=== PATIENT | female | born 1955 | race Caucasian/White ===

== ENCOUNTER → 2022-09-18 11:05 | Outpatient (BNVA) | payer MEDICARE, BC, SELFPAY | PROVIDERS: PCP Physician Assistant; Visit Provider Student in an Organized Health Care Education/Training Program | DX: M06.09 Rheumatoid arthritis without rheumatoid factor, multiple sites (principal); M17.12 Unilateral primary osteoarthritis, left knee; R06.02 Shortness of breath; Z79.899 Other long term (current) drug therapy | CPT/HCPCS: 99202 ==

== ENCOUNTER 2022-09-18 12:57 | Outpatient (REF) | payer MEDICARE, BC, SELFPAY ==
[2022-09-18 14:41] LABS: MANUAL DIFF FLAG NO
[2022-09-18 14:55] LABS: Basophils Percent Auto 0.5 % (0-2); Eosinophils Absolute Auto 0.1 X10*3/uL (0.0-0.4); Eosinophils Percent Auto 1.3 % (0-4); Hematocrit 44.6 % (37.0-47.0); Hemoglobin 14.1 g/dl (12.0-16.0); Imm Gran Abs Auto 0.01 X10*3/uL (0.00-0.03); Imm Gran Pct Auto 0.2 % (0.0-0.4); Lymphocytes Absolute Auto 2.2 X10*3/uL (1.2-4.9); Mean Corpuscular HGB Conc 31.6 g/dl (31.0-35.0); Mean Corpuscular Hemoglobin 30.5 pg (27.0-33.0); Mean Corpuscular Volume 96.3 fL (80.0-98.0); Mean Platelet Volume 10.5 fL (9.4-12.3); Monocytes Absolute Auto 0.7 X10*3/uL (0.1-1.2); Monocytes Percent Auto 10.8 % (2-11); Neutrophils Absolute Auto 3.2 x10*3/uL (2.0-8.3); Neutrophils Percent Auto 51.2 % (45-73); Platelet Count 187 X10*3/uL (160-400); Red Blood Count 4.63 X10*6/uL (4.20-5.50); Red Cell Distribution Width 15.7 % (11.0-16.0); White Blood Count 6.2 X10*3/uL (4.8-10.8)
[2022-09-18 15:29] LABS: Erythrocyte Sedimentation Rate 18 MM/HR (0-20)
[2022-09-18 15:39] LABS: Alanine Aminotransferase 26 U/L (0-31); Albumin Level 3.9 g/dL (3.5-5.0); Alkaline Phosphatase 64 U/L (39-117); Anion Gap 11 (12-20); Aspartate Amino Transferase 23 U/L (5-31); Bilirubin Total 0.9 mg/dL (0.0-1.0); Blood Urea Nitrogen 20 mg/dL (9-16); C Reactive Protein 0.11 mg/dL (< or = 0.50); Calcium 9.6 mg/dL (8.4-10.2); Carbon Dioxide 29 mmol/L (22-29); Chloride 108 mmol/L (96-108); Estimated Glomerular Filt Rate > 60; Glucose Random 81 mg/dL (60-115); Potassium 4.4 mmol/L (3.3-5.1); Rheumatoid Factor 70.9 IU/mL (<15.0); Sodium 144 mmol/L (135-145)
[2022-09-20 06:47] LABS: HBS Num1 0.38 mIU/mL (0-7.99); HBc Num1 0.09 S/CO (0.00-0.79); HBsAGNum1 0.28 S/CO (0.00-0.99); Hepatitis A Antibody IgM 0.17 Index (0-0.79); Hepatitis B Core Antibody Nonreactive (Nonreactive); Hepatitis B Surface Antigen Negative (Negative); ~HepC Num1 0.19 S/CO (0.00-0.79); ~Hepatitis A Antibody IgM Nonreactive (Nonreactive); ~Hepatitis B Surface Antibody NONREACTIVE (Nonreactive); ~Hepatitis C Antibody Nonreactive (Nonreactive)
[2022-09-21 08:03] LABS: TS Negative Control Passed; TS Panel A 0; TS Panel B 0; TS Positive Control Passed; TSpotTB Negative (Negative)
[2022-09-23 13:14] LABS: Cyclic Citrullinated Peptide >250 UNITS
== END 2022-09-18 12:58 | disposition home or self-care (01) ==
LOC: HO.10HDL 12:57
PROVIDERS: Visit Provider Student in an Organized Health Care Education/Training Program
DX: Z11.59 Encounter for screening for other viral diseases (principal); Z11.7 Encounter for testing for latent tuberculosis infection; M06.9 Rheumatoid arthritis, unspecified; Z72.89 Other problems related to lifestyle
CPT/HCPCS: 36415; 80053; 85025; 85652; 86140; 86200; 86431; 86481; 86704; 86706; 86709; 86803; 87340

== ENCOUNTER 2022-10-24 07:48 | Outpatient (REF) | payer MEDICARE, BC, SELFPAY ==
--- NOTE | 2022-10-24 13:33 | PFT_ITS ---
Forced vital capacity 111%, FEV1 105%, FEV1/FVC ratio is 72. HLF30-10 85% and MVV 123%. Post bronchodilator therapy, there is no significant change. Total lung capacity 113%. Residual volume 92%. Diffusion capacity is 62%. CONCLUSION: There is no evidence of obstructive or restrictive pulmonary disorder. Diffusion capacity is slightly decreased, which may be due to interstitial lung disease, pulmonary vascular disease or nonpulmonary factors. For this, clinical correlation is recommended. Neville Lynn MD MSB/MODL / [id number]
== END 2022-10-24 07:49 | disposition home or self-care (01) ==
LOC: HO.RESP 07:48
PROVIDERS: PCP Physician Assistant; Visit Provider Student in an Organized Health Care Education/Training Program
DX: R06.02 Shortness of breath (principal)
CPT/HCPCS: 94060; 94727; 94729

== ENCOUNTER → 2022-12-03 10:26 | Outpatient (BNVA) | payer MEDICARE, BC, SELFPAY | PROVIDERS: PCP Physician Assistant; Visit Provider Student in an Organized Health Care Education/Training Program | DX: M06.09 Rheumatoid arthritis without rheumatoid factor, multiple sites (principal); R06.02 Shortness of breath; Z71.85 Encounter for immunization safety counseling; Z79.631 Long term (current) use of antimetabolite agent | CPT/HCPCS: 99212 ==

== ENCOUNTER → 2022-12-16 10:24 | Outpatient (REF) | payer MEDICARE, BC, SELFPAY ==
--- NOTE | 2022-12-16 10:27 | CA_ITS ---
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 The calculated ejection fraction is 66% by biplane method. - No obvious valvular pathology seen on this study. Findings Left Ventricle Normal left ventricular cavity size. The left ventricular systolic function is normal. The calculated ejection fraction is 66% by biplane method. There is no evidence of regional wall motion abnormalities. Diastolic function is normal for age. There is mild septal asymmetric hypertrophy. LV peak GLS 21.8%. Right Ventricle Normal right ventricular cavity size and systolic function. Atria Both atria are normal in size. Aortic Valve There is a normal trileaflet aortic valve. There is no aortic valve stenosis. There is no aortic valve regurgitation. Mitral Valve The mitral valve appears normal. There is mild mitral annular calcification. There is trace mitral valve regurgitation. There is no mitral valve stenosis. Pulmonic Valve The pulmonic valve is likely normal. Tricuspid Valve There is trace tricuspid valve regurgitation. There is no evidence of pulmonary hypertension. Great Vessels The asc aorta is normal in size. Venous The inferior vena cava is mildly dilated and collapses greater than 50% with inspiration. Pericardium/Pleural There is no evidence of pericardial effusion. Prior Study Comparison No prior study available for comparison. Recommendations, Care & Conclusions No obvious valvular pathology seen on this study. Measurements 2D Linear Measurements IVSd: 1.04 0.6-0.9/0.6-1.0 cm LVIDd: 3.76 3.9-5.3/4.2-5.9 cm LVIDd Index: 1.76 2.4-3.2/2.2-3.1 cm/m2 LVIDs: 2.59 2.0-3.6 cm LVPWd: 0.78 0.7-1.1 cm LA Diam: 3.60 2.7-3.8/3.0-4.0 cm LAIDs Index: 1.68 1.5-2.3 cm/m2 LV Mass: 125.21 67-162/88-224 g LV Mass Index: 58.51 43-95/49-115 g/m2 LVOT Diam: 2.10 3.0+(-)1.3 cm 2D Systolic Function EF 4C: 68.30 >55% EF 2C: 65.70 >55% EF BiP: 65.60 >55% Mitral Valve MV Pk E: 0.49 MV PK A: 0.70 MV Decel Time: 314.00 E/A: 0.70 E'Lateral: 6.42 E'Medial: 4.90 E/E' Med: 10.10 E/E' Lat: 7.70 PHT: 92.00 MVA PHT: 2.39 Decel Robeson: 1.57 Aortic Valve AoV Pk Dave: 0.92 AoV Mn Dave: 0.63 AoV VTI: 0.20 AoV Pk Grad: 3.00 Aov Mn Grad: 2.00 DOUGIE Cont.VTI: 3.63 LVOT LVOT Pk Dave: 0.94 LVOT Mn Dave: 0.59 LVOT VTI: 0.21 LVOT Pk Grad: 4.00 LVOT Mn Grad: 2.00 LVOT Diam: 2.10 LVOT Area: 3.46 Diastolic Function MV Pk E: 0.49 MV Pk A: 0.70 E/A: 0.70 E'Medial: 4.90 E/E' Med: 10.10 E' Laterial: 6.42 E/E' Lat: 7.70 Right Ventricle TAPSE (mm): 26.50 TVS' Dave: 19.30 Tricuspid Valve TR Pk Dave: 1.95 TR Pk Grad: 15.00 RA Press: 8.00 RVSP: 23.00 Great Vessels Aorta Sinus of Valsalva: 3.52 2.0-3.[address] [place]: 3.25 1.7-3.4 cm Ao Asc: 3.60 2.1-3.4 cm Updated in Other Vendor System with Status of Final Bryan Urban MD electronically signed on 12/16/2022 3:49:31 PM with status of Final
== END ==
LOC: HO.CARD 10:24
PROVIDERS: PCP Physician Assistant; Visit Provider Student in an Organized Health Care Education/Training Program
DX: R06.02 Shortness of breath (principal); R06.2 Wheezing
CPT/HCPCS: 93306; 93356

== ENCOUNTER 2023-03-28 07:27 | Outpatient (REF) | payer MEDICARE, BC, SELFPAY ==
[2023-03-28 11:02] LABS: MANUAL DIFF FLAG NO
[2023-03-28 11:08] LABS: Basophils Percent Auto 0.4 % (0-2); Eosinophils Absolute Auto 0.2 X10*3/uL (0.0-0.4); Eosinophils Percent Auto 2.6 % (0-4); Hematocrit 46.4 % (37.0-47.0); Hemoglobin 14.7 g/dl (12.0-16.0); Imm Gran Abs Auto 0.01 X10*3/uL (0.00-0.03); Imm Gran Pct Auto 0.1 % (0.0-0.4); Lymphocytes Absolute Auto 3.4 X10*3/uL (1.2-4.9); Lymphocytes Percent Auto 49.5 % (20-40); Mean Corpuscular HGB Conc 31.7 g/dl (31.0-35.0); Mean Corpuscular Hemoglobin 31.4 pg (27.0-33.0); Mean Corpuscular Volume 99.1 fL (80.0-98.0); Monocytes Absolute Auto 0.7 X10*3/uL (0.1-1.2); Monocytes Percent Auto 10.3 % (2-11); Neutrophils Absolute Auto 2.5 x10*3/uL (2.0-8.3); Neutrophils Percent Auto 37.1 % (45-73); Platelet Count 199 X10*3/uL (160-400); Red Blood Count 4.68 X10*6/uL (4.20-5.50); White Blood Count 6.9 X10*3/uL (4.8-10.8)
[2023-03-28 11:32] LABS: Alanine Aminotransferase 15 U/L (0-31); Albumin Level 3.8 g/dL (3.5-5.0); Alkaline Phosphatase 64 U/L (39-117); Anion Gap 13 (12-20); Aspartate Amino Transferase 19 U/L (5-31); Bilirubin Total 0.4 mg/dL (0.0-1.0); Blood Urea Nitrogen 14 mg/dL (9-16); C Reactive Protein 0.23 mg/dL (< or = 0.50); Carbon Dioxide 25 mmol/L (22-29); Chloride 109 mmol/L (96-108); Estimated Glomerular Filt Rate > 60; Glucose Random 99 mg/dL (60-115); Potassium 4.7 mmol/L (3.3-5.1); Sodium 142 mmol/L (135-145)
[2023-03-28 12:01] LABS: Erythrocyte Sedimentation Rate 18 MM/HR (0-20)
== END 2023-03-28 07:28 | disposition home or self-care (01) ==
LOC: HO.10HDL 07:27
PROVIDERS: Visit Provider Student in an Organized Health Care Education/Training Program
DX: M06.9 Rheumatoid arthritis, unspecified (principal)
CPT/HCPCS: 36415; 80053; 85025; 85652; 86140

== ENCOUNTER 2023-04-02 10:38 | Outpatient (AMB) | payer MEDICARE, BC, SELFPAY ==
[2023-04-02 10:40] VITALS: BP 124/70; PULSE 87; TEMP 36.7; O2SAT 97; BMI 28.7
--- NOTE | 2023-04-02 10:40 | A.OFFVIS_ITS ---
Intake Vital Signs 04/02/23 10:40 Height 5 ft 11 in Weight 205 lb 7.533 oz BMI 28.7 BP 124/70 Blood Pressure Location Rt brachial Position Sitting Pulse 87 Pulse Source Pulse Oximeter Temp 98.1 F Temp Source Skin Pulse Oximetry (%) 97 Intake Visit Reasons: RA Intake Note: Pt seen today for RA follow up. 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 Accompanied by: Self / Same As Patient Allergies No Known Allergies Allergy (Verified 04/02/23 10:45) Medication List - Last Reconciled 04/02/23 by Yumiko Rodas MD ascorbic acid (vitamin C) 1 g PO DAILY calcium carbonate (Calcium) 1,200 mg PO DAILY cholecalciferol (vitamin D3) 50 mcg PO DAILY coenzyme Q10 (Ultra CoQ10) 300 mg PO DAILY etanercept (Enbrel SureClick) 1 mg (0.02 mL) subcut QWEEK folic acid 0.8 mg PO DAILY pgwonvcw-wwinm-dni3-C-turner-bor 500-416.6-20 mg tabs PO glucosamine HCl 1,500 mg PO DAILY ibuprofen 600 mg PO BID PRN leucovorin calcium 10 mg (2 x 5 mg) PO QWEEK methotrexate sodium 7.5 mg (3 x 2.5 mg) PO QWEEK omega 9-izf-whc-fish oil 1,000 mg (120 mg-180 mg) (Fish Oil) 1 cap PO DAILY vitamin E (dl, acetate) 180 mg PO DAILY HPI HPI Comments History of Present Illness Details 67-year-old female with seropositive RA returns for follow-up. Doing well overall. No side effects to medications. Not complaining of shortness of breath. Knees get a little stiff with sitting down. Compliant with meds Initial history: This is a 67-year-old female who presents for evaluation of rheumatoid arthritis. Her previous band edger left the practice. RA was diagnosed in 2018 she was initially started on methotrexate with incomplete response then Enbrel was added. Significant improvement on Enbrel and methotrexate was tapered to 7.5 mg weekly. Patient feels well overall with occasional morning stiffness of her hands. She has stiffness of her knees worse on the left when she stands up after sitting down for a while. Patient smoked for about 40 years. She quit in 2018 when diagnosed with RA. She mentions getting a low-dose CT chest every year which does not show any evidence of malignancy but shows some emphysematous changes. She mentions having some slowly progressively worsening shortness of breath with climbing 2 flights of stairs over the last 2-3 years. Denies cough. 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 Review of Systems Card Denies dyspnea Resp Denies dyspnea Musc Denies arthralgias Physical Exam Vital Signs: Last Vital Signs Temp 98.1 F 04/02/23 10:40 Pulse 87 04/02/23 10:40 BP 124/70 04/02/23 10:40 Pulse Ox 97 04/02/23 10:40 BMI result Body Mass Index 28.7 Const General: cooperative, healthy appearing, comfortable and no acute distress Nutritional Appearance: overweight Orientation/consciousness: patient oriented x3 Limitations: no limitations HEENT Head: Yes normocephalic and Yes atraumatic Mouth: moist mucous membranes Resp Effort & Inspection: normal respiratory effort and able to speak in complete sentences Auscultation: clear to auscultation bilaterally Cardio Rate: regular rate Rhythm: regular rhythm Heart sounds: S1 normal heart sound present and S2 normal heart sound present GI Inspection: No distended Palpation (GI): Soft to palpation and nontender Skin General skin exam: no rashes or lesions noted Neuro General: patient oriented x3 Extrem Other: Left thumb deformity (since an accident when she was young) Osteoarthritic changes of both hands with Heberden's and Vanesa's nodes and squaring of 1st CMC joints No synovitis Left knee crepitus without pain Normal gait Some kyphosis Assessment & Plan Assessment & Plan (1) Rheumatoid arthritis: Comment: ++RF+++CCP dx 2018 MTX started 2018 and enbrel was added afterwards Code(s): M06.9 - Rheumatoid arthritis, unspecified Qualifiers: Rheumatoid arthritis location: multiple sites Rheumatoid factor presence: without rheumatoid factor Qualified Code(s): M06.09 - Rheumatoid arthritis without rheumatoid factor, multiple sites Plan: 67-year-old female with seropositive RA returns for follow-up. She is in remission on Enbrel weekly, methotrexate 7.5 mg weekly, Leucovorin 10 mg weekly, folic acid daily. No synovitis today. Labs are normal Infectious screening hepatitis panel T spot -ve 2022 Patient had complained of minimal shortness of breath many months ago. This has self-resolved. PFTs were ordered and they were unremarkable except for mildly reduced DLCO at 62%, 2D echo was done to evaluate for pulmonary hypertension and it was unremarkable. Can repeat PFTs in 2-3 years or check a [address] chest if patient complains of worsening shortness of breath Labs before next visit in 4 months (2) Screening for osteoporosis: Code(s): Z13.820 - Encounter for screening for osteoporosis Plan: Per patient she had a DEXA scan 2-3 years ago at [facility]. Due for another 1 next year. Advised patient to have her PCP send over a copy of the new DEXA scan in 2023 (3) Immunization counseling: Code(s): Z71.85 - Encounter for immunization safety counseling Plan: Discussed ACR vaccination guidelines for patients with autoimmune rheumatic disease on immune suppression. Patient received all COVID series + 2 boosters. She is wondering about the new COVID booster and RSV vaccine . Advised patient to get the new COVID booster and get the RSV vaccine, hold methotrexate for 1-2 weeks after the injection and continue Enbrel all through Plan I spent 27 minutes reviewing patient's chart, evaluating patient, ordering diagnostic workup, counseling patient and documenting in the chart Orders: Orders Comprehensive Met. Panel 4 Months M06.9 - Rheumatoid arthritis, unspecified C Reactive Protein 4 Months M06.9 - Rheumatoid arthritis, unspecified Complete Blood Count Auto Diff 4 Months M06.9 - Rheumatoid arthritis, unspecified Erythrocyte Sedimentation Rate 4 Months M06.9 - Rheumatoid arthritis, unspecified Coding Level of Care Code Est Pt Level 4 (66431) Diagnoses Rheumatoid arthritis M06.09 Rheumatoid arthritis location: multiple sites Rheumatoid factor presence: without rheumatoid factor Screening for osteoporosis Z13.820 Immunization counseling Z71.85
== END 2023-04-02 11:00 | disposition home or self-care (01) ==
PROVIDERS: PCP Physician Assistant; Visit Provider Student in an Organized Health Care Education/Training Program
DX: M06.09 Rheumatoid arthritis without rheumatoid factor, multiple sites (principal); Z13.820 Encounter for screening for osteoporosis; Z71.85 Encounter for immunization safety counseling
CPT/HCPCS: 99214

== ENCOUNTER → 2023-04-02 10:38 | Outpatient (BNVA) | payer MEDICARE, BC, SELFPAY | PROVIDERS: PCP Physician Assistant; Visit Provider Student in an Organized Health Care Education/Training Program | DX: M05.79 Rheumatoid arthritis with rheumatoid factor of multiple sites without organ or systems involvement (principal); Z79.899 Other long term (current) drug therapy | CPT/HCPCS: 99212 ==

== ENCOUNTER 2023-07-23 07:43 | Outpatient (REF) | payer MEDICARE, BC, SELFPAY ==
[2023-07-23 10:22] LABS: MANUAL DIFF FLAG NO
[2023-07-23 10:27] LABS: Basophils Percent Auto 0.6 % (0-2); Eosinophils Absolute Auto 0.1 X10*3/uL (0.0-0.4); Eosinophils Percent Auto 1.9 % (0-4); Hematocrit 46.5 % (37.0-47.0); Imm Gran Abs Auto 0.01 X10*3/uL (0.00-0.03); Imm Gran Pct Auto 0.1 % (0.0-0.4); Lymphocytes Absolute Auto 3.2 X10*3/uL (1.2-4.9); Lymphocytes Percent Auto 45.6 % (20-40); Mean Corpuscular HGB Conc 32.3 g/dl (31.0-35.0); Mean Corpuscular Hemoglobin 30.7 pg (27.0-33.0); Mean Corpuscular Volume 95.1 fL (80.0-98.0); Monocytes Absolute Auto 0.6 X10*3/uL (0.1-1.2); Neutrophils Percent Auto 43.8 % (45-73); Platelet Count 176 X10*3/uL (160-400); Red Blood Count 4.89 X10*6/uL (4.20-5.50); Red Cell Distribution Width 14.4 % (11.0-16.0); White Blood Count 6.9 X10*3/uL (4.8-10.8)
[2023-07-23 10:57] LABS: Alanine Aminotransferase 16 U/L (0-31); Albumin Level 3.9 g/dL (3.5-5.0); Alkaline Phosphatase 57 U/L (39-117); Anion Gap 12 (12-20); Aspartate Amino Transferase 20 U/L (5-31); Bilirubin Total 0.8 mg/dL (0.0-1.0); Blood Urea Nitrogen 14 mg/dL (9-16); C Reactive Protein 0.12 mg/dL (< or = 0.50); Calcium 9.7 mg/dL (8.4-10.2); Carbon Dioxide 27 mmol/L (22-29); Chloride 107 mmol/L (96-108); Estimated Glomerular Filt Rate > 60; Glucose Random 106 mg/dL (60-115); Potassium 4.2 mmol/L (3.3-5.1); Sodium 142 mmol/L (135-145); Total Protein 7.5 g/dL (6.5-8.0)
[2023-07-23 11:05] LABS: Erythrocyte Sedimentation Rate 14 MM/HR (0-20)
== END 2023-07-23 07:44 | disposition home or self-care (01) ==
LOC: HO.10HDL 07:43
PROVIDERS: Visit Provider Student in an Organized Health Care Education/Training Program
DX: M06.9 Rheumatoid arthritis, unspecified (principal)
CPT/HCPCS: 36415; 80053; 85025; 85652; 86140

== ENCOUNTER 2023-07-31 09:39 | Outpatient (AMB) | payer MEDICARE, BC, SELFPAY ==
--- NOTE | 2023-07-31 09:41 | MHC.OFFVIS ---
Intake Vital Signs 07/31/23 09:47 Height 5 ft 11 in Weight 207 lb 10.807 oz BMI 29.0 BP 130/82 Blood Pressure Location Rt brachial Position Sitting Pulse 79 Pulse Source Pulse Oximeter Temp 97 F Temp Source Skin Pulse Oximetry (%) 95 Oxygen Delivery Method Room Air Intake Visit Reasons: RA Intake Note: Pt last seen 04/02/23 presents today for follow up and test results. 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 Accompanied by: Self / Same As Patient Allergies No Known Allergies Allergy (Verified 07/31/23 09:42) Medication List - Last Reconciled 07/31/23 by Yumiko Rodas MD ascorbic acid (vitamin C) 1 g PO DAILY calcium carbonate (Calcium) 1,200 mg PO DAILY cholecalciferol (vitamin D3) 50 mcg PO DAILY coenzyme Q10 (Ultra CoQ10) 300 mg PO DAILY Enbrel SureClick (etanercept) 50 mg subcut QWEEK NS folic acid 240 mcg PO DAILY xcajipbm-zobyi-xpj2-C-turner-bor 500-416.6-20 mg tabs PO glucosamine HCl 1,500 mg PO DAILY ibuprofen 600 mg PO BID PRN leucovorin calcium 10 mg (2 x 5 mg) PO QWEEK methotrexate sodium 7.5 mg (3 x 2.5 mg) PO QWEEK omega 0-yem-ysh-fish oil 1,000 mg (120 mg-180 mg) (Fish Oil) 1 cap PO DAILY vitamin E (dl, acetate) 180 mg PO DAILY HPI HPI Comments History of Present Illness Details 68-year-old female with seropositive RA returns for follow-up. Doing well overall. No side effects to medications. Not complaining of shortness of breath. Compliant with meds. She has been having some left knee pain recently. She has been using a knee brace at work. She feels like it is going to snow soon Initial history: This is a 67-year-old female who presents for evaluation of rheumatoid arthritis. 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 RA was diagnosed in 2018 she was initially started on methotrexate with incomplete response then Enbrel was added. Significant improvement on Enbrel and methotrexate was tapered to 7.5 mg weekly. Patient feels well overall with occasional morning stiffness of her hands. She has stiffness of her knees worse on the left when she stands up after sitting down for a while. Patient smoked for about 40 years. She quit in 2018 when diagnosed with RA. She mentions getting a low-dose CT chest every year which does not show any evidence of malignancy but shows some emphysematous changes. She mentions having some slowly progressively worsening shortness of breath with climbing 2 flights of stairs over the last 2-3 years. Denies cough. 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 Systems Card Denies dyspnea Resp Denies dyspnea Musc Reports arthralgias Physical Exam Vital Signs: Last Vital Signs Temp 97 F 07/31/23 09:47 Pulse 79 07/31/23 09:47 BP 130/82 07/31/23 09:47 Pulse Ox 95 07/31/23 09:47 Oxygen Delivery Method Room Air 07/31/23 09:47 BMI result Body Mass Index 29.0 Const General: cooperative, healthy appearing, comfortable and no acute distress Nutritional Appearance: overweight Orientation/consciousness: patient oriented x3 Limitations: no limitations HEENT Head: Yes normocephalic and Yes atraumatic Mouth: moist mucous membranes Resp Effort & Inspection: normal respiratory effort and able to speak in complete sentences Auscultation: clear to auscultation bilaterally Cardio Rate: regular rate Rhythm: regular rhythm Heart sounds: S1 normal heart sound present and S2 normal heart sound present GI Inspection: No distended Palpation (GI): Soft to palpation and nontender Skin General skin exam: no rashes or lesions noted Neuro General: patient oriented x3 Extrem Other: Left thumb deformity (since an accident when she was young) Osteoarthritic changes of both hands with Heberden's and Vanesa's nodes and squaring of 1st CMC joints No synovitis Left knee crepitus without pain Normal gait Some kyphosis Assessment & Plan Assessment & Plan (1) Rheumatoid arthritis: Comment: ++RF+++CCP dx 2018 MTX started 2018 and enbrel was added afterwards Code(s): M06.9 - Rheumatoid arthritis, unspecified Qualifiers: Rheumatoid arthritis location: multiple sites Rheumatoid factor presence: without rheumatoid factor Qualified Code(s): M06.09 - Rheumatoid arthritis without rheumatoid factor, multiple sites Plan: 68-year-old female with seropositive RA returns for follow-up. She is in remission on Enbrel weekly, methotrexate 7.5 mg weekly, Leucovorin 10 mg weekly, folic acid 2.4 mg daily. No synovitis today. Labs are normal. She has mild left knee pain from osteoarthritis. Infectious screening hepatitis panel T spot -ve 2022 Patient had complained of minimal shortness of breath many months ago. This has self-resolved. PFTs were ordered and they were unremarkable except for mildly reduced DLCO at 62%, 2D echo was done to evaluate for pulmonary hypertension and it was unremarkable. Can repeat PFTs in 2-3 years or check a [address] chest if patient complains of worsening shortness of breath Continue meds the same but space out Enbrel to every 10 days and assess response Labs before next visit in 4 months (2) Screening for osteoporosis: Code(s): Z13.820 - Encounter for screening for osteoporosis Plan: Per patient she had a DEXA scan 2-3 years ago at [facility]. Due for another 1 next year. Advised patient to have her PCP send over a copy of the new DEXA scan in 2023 (3) Immunization counseling: Code(s): Z71.85 - Encounter for immunization safety counseling Plan: Discussed ACR vaccination guidelines for patients with autoimmune rheumatic disease on immune suppression. Patient received all COVID series + 2 boosters. She is also up-to-date with the flu vaccine, COVID booster and RSV vaccine for this season (4) residential methotrexate user: Code(s): Z79.631 - buttermaker (current) use of antimetabolite agent Plan: Discussed with patient that methotrexate and TNF inhibitors such as Enbrel are associated with skin cancers. Advised patient to have a yearly can check Monitor safety labs Plan I spent 27 minutes reviewing patient's chart, evaluating patient, ordering diagnostic workup, counseling patient and documenting in the chart Coding Level of Care Code Est Pt Level 4 (75633) Diagnoses Rheumatoid arthritis of multiple sites with negative rheumatoid factor M06.09 Rheumatoid arthritis location: multiple sites Rheumatoid factor presence: without rheumatoid factor Screening for osteoporosis Z13.820 Immunization counseling Z71.85 buttermaker methotrexate user Z79.631
[2023-07-31 09:47] VITALS: BP 130/82; PULSE 79; TEMP 36.1; O2SAT 95; BMI 29.0
== END 2023-07-31 10:03 | disposition home or self-care (01) ==
PROVIDERS: PCP Physician Assistant; Visit Provider Student in an Organized Health Care Education/Training Program
DX: M06.09 Rheumatoid arthritis without rheumatoid factor, multiple sites (principal); Z13.820 Encounter for screening for osteoporosis; Z71.85 Encounter for immunization safety counseling; Z79.631 Long term (current) use of antimetabolite agent
CPT/HCPCS: 99214

== ENCOUNTER → 2023-07-31 09:39 | Outpatient (BNVA) | payer MEDICARE, BC, SELFPAY | PROVIDERS: PCP Physician Assistant; Visit Provider Student in an Organized Health Care Education/Training Program | DX: Z13.820 Encounter for screening for osteoporosis (principal); Z71.85 Encounter for immunization safety counseling; M06.09 Rheumatoid arthritis without rheumatoid factor, multiple sites; Z79.631 Long term (current) use of antimetabolite agent | CPT/HCPCS: 99212 ==

== ENCOUNTER 2023-12-04 08:02 | Outpatient (REF) | payer MEDICARE, BC, SELFPAY ==
[2023-12-04 11:16] LABS: MANUAL DIFF FLAG NO
[2023-12-04 11:27] LABS: Basophils Percent Auto 0.3 % (0-2); Eosinophils Absolute Auto 0.2 X10*3/uL (0.0-0.4); Eosinophils Percent Auto 2.3 % (0-4); Hematocrit 44.3 % (37.0-47.0); Hemoglobin 14.2 g/dl (12.0-16.0); Imm Gran Abs Auto 0.01 X10*3/uL (0.00-0.03); Imm Gran Pct Auto 0.2 % (0.0-0.4); Lymphocytes Absolute Auto 2.6 X10*3/uL (1.2-4.9); Lymphocytes Percent Auto 40.2 % (20-40); Mean Corpuscular HGB Conc 32.1 g/dl (31.0-35.0); Mean Corpuscular Hemoglobin 30.7 pg (27.0-33.0); Mean Corpuscular Volume 95.9 fL (80.0-98.0); Mean Platelet Volume 10.2 fL (9.4-12.3); Monocytes Absolute Auto 0.8 X10*3/uL (0.1-1.2); Monocytes Percent Auto 12.1 % (2-11); Neutrophils Absolute Auto 2.9 x10*3/uL (2.0-8.3); Neutrophils Percent Auto 44.9 % (45-73); Platelet Count 195 X10*3/uL (160-400); Red Blood Count 4.62 X10*6/uL (4.20-5.50); Red Cell Distribution Width 14.6 % (11.0-16.0); White Blood Count 6.5 X10*3/uL (4.8-10.8)
[2023-12-04 12:04] LABS: Alanine Aminotransferase 12 U/L (0-31); Albumin Level 3.7 g/dL (3.5-5.0); Alkaline Phosphatase 61 U/L (39-117); Anion Gap 13 (12-20); Aspartate Amino Transferase 16 U/L (5-31); Bilirubin Total 0.6 mg/dL (0.0-1.0); Blood Urea Nitrogen 16 mg/dL (9-16); C Reactive Protein 0.36 mg/dL (< or = 0.50); Calcium 9.5 mg/dL (8.4-10.2); Carbon Dioxide 26 mmol/L (22-29); Chloride 108 mmol/L (96-108); Estimated Glomerular Filt Rate > 60; Glucose Random 104 mg/dL (60-115); Potassium 4.7 mmol/L (3.3-5.1); Sodium 142 mmol/L (135-145); Total Protein 7.1 g/dL (6.5-8.0)
[2023-12-04 12:15] LABS: Erythrocyte Sedimentation Rate 25 MM/HR (0-20)
[2023-12-04 12:28] LABS: HBS Num1 0.58 mIU/mL (0-7.99); HBc Num1 0.17 S/CO (0.00-0.79); HBsAGNum1 0.24 S/CO (0.00-0.99); Hepatitis B Core Antibody Nonreactive (Nonreactive); Hepatitis B Surface Antigen Negative (Negative); ~HepC Num1 0.23 S/CO (0.00-0.79); ~Hepatitis A Antibody IgM Nonreactive (Nonreactive); ~Hepatitis B Surface Antibody NONREACTIVE (Nonreactive); ~Hepatitis C Antibody Nonreactive (Nonreactive)
[2023-12-07 13:13] LABS: TS Negative Control Passed; TS Panel A 0; TS Panel B 0; TS Positive Control Passed; TSpotTB Negative (Negative)
== END 2023-12-04 08:03 | disposition home or self-care (01) ==
LOC: HO.10HDL 08:02
PROVIDERS: Visit Provider Student in an Organized Health Care Education/Training Program
DX: M06.09 Rheumatoid arthritis without rheumatoid factor, multiple sites (principal); Z79.631 Long term (current) use of antimetabolite agent; Z11.59 Encounter for screening for other viral diseases; Z11.7 Encounter for testing for latent tuberculosis infection; Z72.89 Other problems related to lifestyle
CPT/HCPCS: 36415; 80053; 85025; 85652; 86140; 86481; 86704; 86706; 86709; 86803; 87340

== ENCOUNTER 2023-12-11 08:03 | Outpatient (AMB) | payer MEDICARE, BC, SELFPAY ==
--- NOTE | 2023-12-11 08:12 | MHC.OFFVIS ---
Vital Signs 12/11/23 08:20 Height 5 ft 11 in Weight 201 lb 15.095 oz BMI 28.2 BP 110/70 Blood Pressure Location Rt brachial Position Sitting Pulse 95 Pulse Source Pulse Oximeter Pulse Oximetry (%) 97 Oxygen Delivery Method Room Air Intake Visit Reasons: RA Intake Note: Patient last seen 07/31/23 presents today for follow up and test results. Patient reports she would like to go back to Enbrel weekly as opposed to every 10 days. She reports she's had more stiffness since changing the frequency. Form Drafter Required: No Accompanied by: Self / Same As Patient Allergies No Known Allergies Allergy (Verified 12/11/23 08:15) Medication List - Last Reconciled 12/11/23 by Yumiko Rodas MD ascorbic acid (vitamin C) 1 g PO DAILY calcium carbonate (Calcium 600) 1,200 mg PO DAILY cholecalciferol (vitamin D3) 50 mcg PO DAILY coenzyme Q10 (Ultra CoQ10) 300 mg PO DAILY Enbrel SureClick (etanercept) 50 mg subcut QWEEK NS folic acid 240 mcg PO DAILY djnjgxkt-mhukf-qcq5-C-turner-bor 500-416.6-20 mg tabs PO glucosamine HCl 1,500 mg PO DAILY ibuprofen 600 mg PO BID PRN leucovorin calcium 10 mg (2 x 5 mg) PO QWEEK methotrexate sodium 7.5 mg (3 x 2.5 mg) PO QWEEK omega 7-bcb-xdw-fish oil 1,000 mg (120 mg-180 mg) (Fish Oil) 1 cap PO DAILY vitamin E (dl, acetate) 180 mg PO DAILY HPI Comments Details: 68-year-old female with seropositive RA returns for follow-up. Last visit we spaced out Enbrel from Q weekly to Q 10 days. Since that change patient has been having some stiffness of her shoulders, some swelling of her right hand fingers. Since that her right shoulder is a little bit more achy because she lifted a patient that work recently. She is doing quite well otherwise. Initial history: This is a 67-year-old female who presents for evaluation of rheumatoid arthritis. Her previous housing and residence life director left the practice. RA was diagnosed in 2018 she was initially started on methotrexate with incomplete response then Enbrel was added. Significant improvement on Enbrel and methotrexate was tapered to 7.5 mg weekly. Patient feels well overall with occasional morning stiffness of her hands. She has stiffness of her knees worse on the left when she stands up after sitting down for a while. Patient smoked for about 40 years. She quit in 2018 when diagnosed with RA. She mentions getting a low-dose CT chest every year which does not show any evidence of malignancy but shows some emphysematous changes. She mentions having some slowly progressively worsening shortness of breath with climbing 2 flights of stairs over the last 2-3 years. Denies cough. 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 Review of Systems Card Denies dyspnea Resp Denies dyspnea Musc Reports arthralgias, Reports joint swelling and Reports stiffness Physical Exam Vital Signs: Last Vital Signs Pulse 95 12/11/23 08:20 BP 110/70 12/11/23 08:20 Pulse Ox 97 12/11/23 08:20 Oxygen Delivery Method Room Air 12/11/23 08:20 BMI result Body Mass Index 28.2 Const General: cooperative, healthy appearing, comfortable and no acute distress Nutritional Appearance: overweight Orientation/consciousness: patient oriented x3 Limitations: no limitations HEENT Head: Yes normocephalic and Yes atraumatic Mouth: moist mucous membranes Resp Effort & Inspection: normal respiratory effort and able to speak in complete sentences Auscultation: clear to auscultation bilaterally Cardio Rate: regular rate Rhythm: regular rhythm Heart sounds: S1 normal heart sound present and S2 normal heart sound present GI Inspection: No distended Palpation (GI): Soft to palpation and nontender Skin General skin exam: no rashes or lesions noted Neuro General: patient oriented x3 Extrem Other: Left thumb deformity (since an accident when she was young) Osteoarthritic changes of both hands with Heberden's and Vanesa's nodes and squaring of 1st CMC joints Swelling of right 3rd and 4th fingers but no tenderness to palpation right 5th MCP swelling and no tenderness Range of motion of shoulders Positive lift-off test on the right Left knee crepitus without pain Normal gait Proximal muscle strength 5/5 all 4 extremities Some kyphosis Assessment & Plan Assessment & Plan (1) Rheumatoid arthritis: Comment: ++RF+++CCP dx 2018 MTX started 2018 and enbrel was added afterwards Code(s): M06.9 - Rheumatoid arthritis, unspecified Category: Medical Qualifiers: Rheumatoid arthritis location: multiple sites Rheumatoid factor presence: without rheumatoid factor Qualified Code(s): M06.09 - Rheumatoid arthritis without rheumatoid factor, multiple sites Plan: 68-year-old female with seropositive RA returns for follow-up. Last visit we spaced out her Enbrel from Q weekly to Q 10 days. Since that change patient has noticed stiffness of her shoulder as well as some swelling of her fingers. On exam she has 3 swollen joints. ESR minimally elevated Will go back to Enbrel Q 7 days. Continue methotrexate 7.5 mg weekly and folic acid daily Infectious screening hepatitis panel T spot -ve 2022 Patient had complained of minimal shortness of breath many months ago. This has self-resolved. PFTs were ordered and they were unremarkable except for mildly reduced DLCO at 62%, 2D echo was done to evaluate for pulmonary hypertension and it was unremarkable. Can repeat PFTs in 2-3 years or check a CT chest if patient complains of worsening shortness of breath Labs before next visit in 4 months (2) Screening for osteoporosis: Code(s): Z13.820 - Encounter for screening for osteoporosis Category: Medical Plan: Per patient she had a DEXA scan 2-3 years ago at [facility]. Due for another 1 next year. She is scheduled for another DEXA this year. 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 Advised patient to have a yearly can check Monitor safety labs (4) Tendinopathy of right rotator cuff: Code(s): M67.911 - Unspecified disorder of synovium and tendon, right shoulder Category: Medical Plan: Subscapularis, Likely precipitated by patient lifting a patient at her job recently. Minimal symptoms. If symptoms do not improve, can consider referral to PT or an injection Plan I spent 27 minutes reviewing patient's chart, evaluating patient, ordering diagnostic workup, counseling patient and documenting in the chart Orders: Orders Comprehensive Met. Panel 4 Months M06.09 - Rheumatoid arthritis without rheumatoid factor, multiple sites, Z79.631 - intermediate (current) use of antimetabolite agent Erythrocyte Sedimentation Rate 4 Months M06.09 - Rheumatoid arthritis without rheumatoid factor, multiple sites, Z79.631 - termite treater helper (current) use of antimetabolite agent Complete Blood Count Auto Diff 4 Months M06.09 - Rheumatoid arthritis without rheumatoid factor, multiple sites, Z79.631 - intermediate (current) use of antimetabolite agent C Reactive Protein 4 Months M06.09 - Rheumatoid arthritis without rheumatoid factor, multiple sites, Z79.631 - intermediate (current) use of antimetabolite agent Coding Level of Care Code Est Pt Level 4 (98941) Complex EM visit Add On G2211 Diagnoses Rheumatoid arthritis of multiple sites with negative rheumatoid factor M06.09 Rheumatoid arthritis location: multiple sites Rheumatoid factor presence: without rheumatoid factor Screening for osteoporosis Z13.820 intermediate methotrexate user Z79.631 Tendinopathy of right rotator cuff M67.911
[2023-12-11 08:20] VITALS: BP 110/70; PULSE 95; O2SAT 97; BMI 28.2
== END 2023-12-11 08:36 | disposition home or self-care (01) ==
PROVIDERS: PCP Physician Assistant; Visit Provider Student in an Organized Health Care Education/Training Program
DX: M06.09 Rheumatoid arthritis without rheumatoid factor, multiple sites (principal); Z13.820 Encounter for screening for osteoporosis; Z79.631 Long term (current) use of antimetabolite agent; M67.911 Unspecified disorder of synovium and tendon, right shoulder
CPT/HCPCS: 99214; G2211

== ENCOUNTER → 2023-12-11 08:03 | Outpatient (BNVA) | payer MEDICARE, BC, SELFPAY | PROVIDERS: PCP Physician Assistant; Visit Provider Student in an Organized Health Care Education/Training Program | DX: M06.09 Rheumatoid arthritis without rheumatoid factor, multiple sites (principal); M67.911 Unspecified disorder of synovium and tendon, right shoulder; Z79.631 Long term (current) use of antimetabolite agent | CPT/HCPCS: 99212 ==

== ENCOUNTER 2024-04-09 09:04 | Outpatient (REF) | payer MEDICARE, BC, SELFPAY ==
[2024-04-09 11:46] LABS: MANUAL DIFF FLAG NO
[2024-04-09 12:08] LABS: Basophils Percent Auto 0.2 % (0-2); Eosinophils Absolute Auto 0.1 X10*3/uL (0.0-0.4); Eosinophils Percent Auto 0.5 % (0-4); Hemoglobin 12.1 g/dl (12.0-16.0); Imm Gran Abs Auto 0.02 X10*3/uL (0.00-0.03); Imm Gran Pct Auto 0.2 % (0.0-0.4); Lymphocytes Absolute Auto 1.8 X10*3/uL (1.2-4.9); Mean Corpuscular HGB Conc 32.7 g/dl (31.0-35.0); Mean Corpuscular Hemoglobin 29.6 pg (27.0-33.0); Mean Corpuscular Volume 90.5 fL (80.0-98.0); Mean Platelet Volume 9.2 fL (9.4-12.3); Monocytes Percent Auto 10.6 % (2-11); Neutrophils Absolute Auto 6.3 x10*3/uL (2.0-8.3); Neutrophils Percent Auto 68.5 % (45-73); Platelet Count 304 X10*3/uL (160-400); Red Blood Count 4.09 X10*6/uL (4.20-5.50); White Blood Count 9.2 X10*3/uL (4.8-10.8)
[2024-04-09 12:28] LABS: Alanine Aminotransferase 12 U/L (0-31); Albumin Level 3.5 g/dL (3.5-5.0); Alkaline Phosphatase 72 U/L (39-117); Anion Gap 14 (12-20); Aspartate Amino Transferase 16 U/L (5-31); Bilirubin Total 0.5 mg/dL (0.0-1.0); Blood Urea Nitrogen 15 mg/dL (9-16); C Reactive Protein 3.38 mg/dL (< or = 0.50); Calcium 9.6 mg/dL (8.4-10.2); Carbon Dioxide 25 mmol/L (22-29); Chloride 101 mmol/L (96-108); Estimated Glomerular Filt Rate > 60; Glucose Random 113 mg/dL (60-115); Potassium 4.3 mmol/L (3.3-5.1); Sodium 136 mmol/L (135-145); Total Protein 7.4 g/dL (6.5-8.0)
[2024-04-09 12:52] LABS: Erythrocyte Sedimentation Rate 73 MM/HR (0-20)
== END 2024-04-09 09:05 | disposition home or self-care (01) ==
LOC: HO.WFDLDS 09:04
PROVIDERS: Visit Provider Student in an Organized Health Care Education/Training Program
DX: M06.09 Rheumatoid arthritis without rheumatoid factor, multiple sites (principal); Z79.631 Long term (current) use of antimetabolite agent
CPT/HCPCS: 36415; 80053; 85025; 85652; 86140

== ENCOUNTER 2024-04-12 07:54 | Outpatient (AMB) | payer MEDICARE, BC, SELFPAY ==
--- NOTE | 2024-04-12 07:55 | A.OFFVIS_ITS ---
Vital Signs 04/12/24 07:59 Height 5 ft 11 in Weight 191 lb 12.835 oz BMI 26.7 BP 110/78 Blood Pressure Location Rt brachial Position Sitting Pulse 101 H Pulse Source Pulse Oximeter Pulse Oximetry (%) 97 Oxygen Delivery Method Room Air Intake Visit Reasons: RA Intake Note: Patient presents for RA. Allergies No Known Allergies Allergy (Verified 04/12/24 07:58) Medication List - Last Reconciled 04/12/24 by Yumiko Rodas MD ascorbic acid (vitamin C) 1 g PO DAILY calcium carbonate (Calcium 600) 1,200 mg PO DAILY cholecalciferol (vitamin D3) 50 mcg PO DAILY coenzyme Q10 (Ultra CoQ10) 300 mg PO DAILY Enbrel SureClick (etanercept) 50 mg subcut QWEEK NS folic acid 240 mcg PO DAILY znaulhbx-uwrgx-yba4-C-turner-bor 500-416.6-20 mg tabs PO glucosamine HCl 1,500 mg PO DAILY ibuprofen 600 mg PO BID PRN leucovorin calcium 10 mg (2 x 5 mg) PO QWEEK methotrexate sodium 7.5 mg (3 x 2.5 mg) PO QWEEK omega 9-skd-eud-fish oil 1,000 mg (120 mg-180 mg) (Fish Oil) 1 cap PO DAILY prednisone Take 4 tabs daily for 1 week then 3 tabs daily for 1 week then 2 tabs daily for 1 week, then 1 tab daily for 1 week then stop vitamin E (dl, acetate) 180 mg PO DAILY HPI Comments Details: 68-year-old female with seropositive RA returns for follow-up. She is on Enbrel weekly, methotrexate 7.5 mg weekly, leucovorin weekly. She states that January she has not been doing well. She has been having a flare-up affecting multiple joints. Including her hands, shoulders, knees, back, hips. She states that around the same time they had her dual more shifts at work. She resigned. She states that she has been taking ibuprofen 600 mg every 6-8 hours. She also has been using CBD tincture. She states that she is improving compared to January but not back to her baseline. Initial history: This is a 67-year-old female who presents for evaluation of rheumatoid arthritis. 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 RA was diagnosed in 2018 she was initially started on methotrexate with incomplete response then Enbrel was added. Significant improvement on Enbrel and methotrexate was tapered to 7.5 mg weekly. Patient feels well overall with occasional morning stiffness of her hands. She has stiffness of her knees worse on the left when she stands up after sitting down for a while. Patient smoked for about 40 years. She quit in 2018 when diagnosed with RA. She mentions getting a low-dose CT chest every year which does not show any evidence of malignancy but shows some emphysematous changes. She mentions having some slowly progressively worsening shortness of breath with climbing 2 flights of stairs over the last 2-3 years. Denies cough. 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 Female Reproductive History Menstrual Total pregnancies: 0 Review of Systems [facility] [place] Reports arthralgias, Reports joint swelling and Reports stiffness Physical Exam Vital Signs: Last Vital Signs Pulse 101 H 04/12/24 07:59 BP 110/78 04/12/24 07:59 Pulse Ox 97 04/12/24 07:59 Oxygen Delivery Method Room Air 04/12/24 07:59 BMI result Body Mass Index 26.7 Const General: cooperative, healthy appearing, comfortable and no acute distress Nutritional Appearance: overweight Orientation/consciousness: patient oriented x3 Limitations: no limitations HEENT Head: Yes normocephalic and Yes atraumatic Resp Effort & Inspection: normal respiratory effort and able to speak in complete sentences Auscultation: clear to auscultation bilaterally Cardio Rate: regular rate Rhythm: regular rhythm Heart sounds: S1 normal heart sound present and S2 normal heart sound present GI Inspection: No distended Palpation (GI): Soft to palpation and nontender Skin General skin exam: no rashes or lesions noted Neuro General: patient oriented x3 Extrem Other: Left thumb deformity (since an accident when she was young) Osteoarthritic changes of both hands with Heberden's and Vanesa's nodes and squaring of 1st CMC joints, right 3rd finger swelling without tenderness Left index swelling without tenderness Bilateral limited shoulder abduction, slightly more limited on the left Antalgic gait Bilateral knee braces Bilateral knee warmth Bilateral ankle swelling with pitting edema Proximal muscle strength 5/5 all 4 extremities Some kyphosis Assessment & Plan Assessment & Plan (1) Rheumatoid arthritis: Comment: ++RF+++CCP dx 2018 MTX started 2018 and enbrel was added afterwards Code(s): M06.9 - Rheumatoid arthritis, unspecified Category: Medical Qualifiers: Rheumatoid arthritis location: multiple sites Rheumatoid factor presence: without rheumatoid factor Qualified Code(s): M06.09 - Rheumatoid arthritis without rheumatoid factor, multiple sites Plan: 68-year-old female with seropositive RA returns for follow-up. On Enbrel 50 mg weekly and methotrexate 7.5 mg weekly. She has been having a flare-up for the last 2-3 months. Affecting multiple joints. Inflammatory markers significantly elevated. Start prednisone taper. Advised patient not to combine prednisone with ibuprofen. Patient has some extra Enbrel injections at home. Advised patient to do it twice a week 2 or 3 times. Continue methotrexate 7.5 mg weekly Infectious screening hepatitis panel T spot -ve 2022 Labs before next visit in 6-8 weeks (2) correction methotrexate user: Code(s): Z79.631 - correction (current) use of antimetabolite agent Category: Medical Plan: Discussed with patient that methotrexate and TNF inhibitors such as Enbrel are associated with skin cancers. Advised patient to have a yearly can check Monitor safety labs (3) Bilateral primary osteoarthritis of knee: Code(s): M17.0 - Bilateral primary osteoarthritis of knee Category: Medical Plan: Will need bilateral knee x-rays. We will order them next visit. Hopefully after this current flare up resolves Plan I spent 27 minutes reviewing patient's chart, evaluating patient, ordering diagnostic workup, counseling patient and documenting in the chart Orders: Orders Complete Blood Count Auto Diff 8 Weeks M06.09 - Rheumatoid arthritis without rheumatoid factor, multiple sites Comprehensive Met. Panel 8 Weeks M06.09 - Rheumatoid arthritis without rheumatoid factor, multiple sites C Reactive Protein 8 Weeks M06.09 - Rheumatoid arthritis without rheumatoid factor, multiple sites Erythrocyte Sedimentation Rate 8 Weeks M06.09 - Rheumatoid arthritis without rheumatoid factor, multiple sites Medications: New prednisone Take 4 tabs daily for 1 week then 3 tabs daily for 1 week then 2 tabs daily for 1 week, then 1 tab daily for 1 week then stop 70 tabs 0RF Coding Level of Care Code Est Pt Level 4 (52914) Diagnoses Rheumatoid arthritis of multiple sites with negative rheumatoid factor M06.09 Rheumatoid arthritis location: multiple sites Rheumatoid factor presence: without rheumatoid factor correction methotrexate user Z79.631 Bilateral primary osteoarthritis of knee M17.0
[2024-04-12 07:59] VITALS: BP 110/78; PULSE 101; O2SAT 97; BMI 26.7
== END 2024-04-12 08:41 | disposition home or self-care (01) ==
PROVIDERS: PCP Physician Assistant; Visit Provider Student in an Organized Health Care Education/Training Program
DX: M06.09 Rheumatoid arthritis without rheumatoid factor, multiple sites (principal); Z79.631 Long term (current) use of antimetabolite agent; M17.0 Bilateral primary osteoarthritis of knee
CPT/HCPCS: 99214

== ENCOUNTER → 2024-04-12 07:54 | Outpatient (BNVA) | payer MEDICARE, BC, SELFPAY | PROVIDERS: PCP Physician Assistant; Visit Provider Student in an Organized Health Care Education/Training Program | DX: M17.0 Bilateral primary osteoarthritis of knee (principal); M06.09 Rheumatoid arthritis without rheumatoid factor, multiple sites; Z79.631 Long term (current) use of antimetabolite agent | CPT/HCPCS: 99212 ==

== ENCOUNTER 2024-05-28 08:19 | Outpatient (REF) | payer MEDICARE, BC, SELFPAY ==
[2024-05-28 11:21] LABS: MANUAL DIFF FLAG NO
[2024-05-28 11:35] LABS: Basophils Percent Auto 0.2 % (0-2); Eosinophils Absolute Auto 0.1 X10*3/uL (0.0-0.4); Eosinophils Percent Auto 1.1 % (0-4); Hematocrit 40.2 % (37.0-47.0); Hemoglobin 12.8 g/dl (12.0-16.0); Imm Gran Abs Auto 0.02 X10*3/uL (0.00-0.03); Imm Gran Pct Auto 0.2 % (0.0-0.4); Lymphocytes Absolute Auto 3.5 X10*3/uL (1.2-4.9); Lymphocytes Percent Auto 41.4 % (20-40); Mean Corpuscular HGB Conc 31.8 g/dl (31.0-35.0); Mean Corpuscular Hemoglobin 29.2 pg (27.0-33.0); Mean Corpuscular Volume 91.8 fL (80.0-98.0); Mean Platelet Volume 9.1 fL (9.4-12.3); Monocytes Absolute Auto 0.9 X10*3/uL (0.1-1.2); Monocytes Percent Auto 10.4 % (2-11); Neutrophils Absolute Auto 3.9 x10*3/uL (2.0-8.3); Neutrophils Percent Auto 46.7 % (45-73); Platelet Count 331 X10*3/uL (160-400); Red Blood Count 4.38 X10*6/uL (4.20-5.50); Red Cell Distribution Width 15.7 % (11.0-16.0); White Blood Count 8.4 X10*3/uL (4.8-10.8)
[2024-05-28 12:15] LABS: Erythrocyte Sedimentation Rate 59 MM/HR (0-20)
[2024-05-28 12:32] LABS: Alanine Aminotransferase 10 U/L (0-31); Albumin Level 3.5 g/dL (3.5-5.0); Alkaline Phosphatase 67 U/L (39-117); Anion Gap 11 (12-20); Aspartate Amino Transferase 18 U/L (5-31); Bilirubin Total 0.4 mg/dL (0.0-1.0); Blood Urea Nitrogen 15 mg/dL (9-16); C Reactive Protein 3.39 mg/dL (< or = 0.50); Calcium 10.3 mg/dL (8.4-10.2); Carbon Dioxide 26 mmol/L (22-29); Chloride 107 mmol/L (96-108); Estimated Glomerular Filt Rate > 60; Glucose Random 107 mg/dL (60-115); Potassium 4.1 mmol/L (3.3-5.1); Sodium 140 mmol/L (135-145); Total Protein 7.4 g/dL (6.5-8.0)
== END 2024-05-28 08:20 | disposition home or self-care (01) ==
LOC: HO.WFDLDS 08:19
PROVIDERS: Visit Provider Student in an Organized Health Care Education/Training Program
DX: M06.09 Rheumatoid arthritis without rheumatoid factor, multiple sites (principal)
CPT/HCPCS: 36415; 80053; 85025; 85652; 86140

== ENCOUNTER 2024-06-01 08:01 | Outpatient (AMB) | payer MEDICARE, BC, SELFPAY ==
--- NOTE | 2024-06-01 08:08 | A.OFFVIS_ITS ---
Vital Signs 06/01/24 08:13 Height 5 ft 11 in Weight 187 lb 2.759 oz BMI 26.1 BP 122/74 Blood Pressure Location Rt brachial Position Sitting Pulse 78 Pulse Source Pulse Oximeter Pulse Oximetry (%) 98 Oxygen Delivery Method Room Air Intake Visit Reasons: RA/cm Intake Note: Patient presents for RA. Allergies No Known Allergies Allergy (Verified 06/01/24 08:12) Medication List - Last Reconciled 06/01/24 by Yumiko Rodas MD ascorbic acid (vitamin C) 1 g PO DAILY calcium carbonate (Calcium 600) 1,200 mg PO DAILY cholecalciferol (vitamin D3) 50 mcg PO DAILY coenzyme Q10 (Ultra CoQ10) 300 mg PO DAILY Enbrel SureClick (etanercept) 50 mg subcut QWEEK NS folic acid 240 mcg PO DAILY qdmorgxs-ubvwx-jnx4-C-turner-bor 500-416.6-20 mg tabs PO glucosamine HCl 1,500 mg PO DAILY ibuprofen 600 mg PO BID PRN leucovorin calcium 10 mg (2 x 5 mg) PO QWEEK methotrexate sodium 20 mg (8 x 2.5 mg) PO QWEEK omega 2-vqm-yao-fish oil 1,000 mg (120 mg-180 mg) (Fish Oil) 1 cap PO DAILY prednisone 10 mg (2 x 5 mg) PO DAILY vitamin E (dl, acetate) 180 mg PO DAILY HPI Comments Details: 68-year-old female with seropositive RA returns for follow-up. She is on Enbrel weekly, methotrexate 20 mg weekly, leucovorin weekly and prednisone 10 mg daily. She states that she feels about 50% better since last visit. She states that now she can drive. She has a manual transmission car and needs both legs. She continues to have bilateral knee pain, shoulder pain and stiffness. Difficulty washing her hair. Initial history: This is a 67-year-old female who presents for evaluation of rheumatoid arthritis. 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 RA was diagnosed in 2018 she was initially started on methotrexate with incomplete response then Enbrel was added. Significant improvement on Enbrel and methotrexate was tapered to 7.5 mg weekly. Patient feels well overall with occasional morning stiffness of her hands. She has stiffness of her knees worse on the left when she stands up after sitting down for a while. Patient smoked for about 40 years. She quit in 2018 when diagnosed with RA. She mentions getting a low-dose CT chest every year which does not show any evidence of malignancy but shows some emphysematous changes. She mentions having some slowly progressively worsening shortness of breath with climbing 2 flights of stairs over the last 2-3 years. Denies cough. 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 of Systems [employer] Reports arthralgias, Reports joint swelling and Reports stiffness Physical Exam Vital Signs: Last Vital Signs Pulse 78 06/01/24 08:13 BP 122/74 06/01/24 08:13 Pulse Ox 98 06/01/24 08:13 Oxygen Delivery Method Room Air 06/01/24 08:13 BMI result Body Mass Index 26.1 Const General: cooperative, healthy appearing, comfortable and no acute distress Nutritional Appearance: overweight Orientation/consciousness: patient oriented x3 Limitations: no limitations HEENT Head: Yes normocephalic and Yes atraumatic Resp Effort & Inspection: normal respiratory effort and able to speak in complete sentences Auscultation: clear to auscultation bilaterally Cardio Rate: regular rate Rhythm: regular rhythm Heart sounds: S1 normal heart sound present and S2 normal heart sound present GI Inspection: No distended Palpation (GI): Soft to palpation and nontender Skin General skin exam: no rashes or lesions noted Neuro General: patient oriented x3 Extrem Other: Left thumb deformity (since an accident when she was young) Osteoarthritic changes of both hands with Heberden's and Vanesa's nodes and squaring of 1st CMC joints, right 3rd finger swelling without tenderness Left index swelling without tenderness Bilateral limited shoulder abduction, slightly more limited on the left Right 2nd 3rd and 4th finger swelling without tenderness Walks slowly as she can not fully extend both knees Bilateral knee braces Left knee warmth Proximal muscle strength 5/5 all 4 extremities Some kyphosis Assessment & Plan Assessment & Plan (1) Rheumatoid arthritis: Comment: ++RF+++CCP dx 2018 MTX started 2018 and enbrel was added afterwards Code(s): M06.9 - Rheumatoid arthritis, unspecified Category: Medical Qualifiers: Rheumatoid arthritis location: multiple sites Rheumatoid factor presence: without rheumatoid factor Qualified Code(s): M06.09 - Rheumatoid arthritis without rheumatoid factor, multiple sites Plan: 68-year-old female with seropositive RA returns for follow-up. On Enbrel 50 mg weekly, prednisone 10 mg daily and methotrexate 20 mg weekly. Patient is not doing well. She continues to have multiple swollen and tender joints. Continues to have significantly elevated inflammatory markers and this is despite prednisone 10 mg daily. I think patient has developed secondary nonresponse to Enbrel. We will need to switch Enbrel. Discussed risks and benefits of Actemra. Patient agreed to proceed. Will start prior authorization for Actemra injections. Continue methotrexate 20 mg weekly split dose, leucovorin 10 mg weekly and prednisone 10 mg daily. 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 Patient fully aware. Advised patient to seek medical care [facility] if patient has an infection and advised patient to stop the medication until the infection is resolved. Plan I spent 27 minutes reviewing patient's chart, evaluating patient, ordering diagnostic workup, counseling patient and documenting in the chart Orders: Orders Comprehensive Met. 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
[2024-06-01 08:13] VITALS: BP 122/74; PULSE 78; O2SAT 98; BMI 26.1
== END 2024-06-01 08:55 | disposition home or self-care (01) ==
LOC: HO.RHE 08:02
PROVIDERS: PCP Physician Assistant; Visit Provider Student in an Organized Health Care Education/Training Program
DX: M06.09 Rheumatoid arthritis without rheumatoid factor, multiple sites (principal); Z79.631 Long term (current) use of antimetabolite agent; Z79.899 Other long term (current) drug therapy
CPT/HCPCS: 99214; G2211

== ENCOUNTER → 2024-06-01 08:01 | Outpatient (BNVA) | payer MEDICARE, BC, SELFPAY | PROVIDERS: PCP Physician Assistant; Visit Provider Student in an Organized Health Care Education/Training Program | DX: M06.09 Rheumatoid arthritis without rheumatoid factor, multiple sites (principal); Z79.631 Long term (current) use of antimetabolite agent; Z79.52 Long term (current) use of systemic steroids; Z79.899 Other long term (current) drug therapy | CPT/HCPCS: 99212 ==

== ENCOUNTER 2024-08-27 09:04 | Outpatient (REF) | payer MEDICARE, BC, SELFPAY ==
--- OUTSIDE RECORDS SUMMARY | 2024-08-27 09:30 | XMS_ITS | Data Portability ---
Author Organization [facility], [facility] Address [address] [place] [address] Care Team Providers Care Live Games Dealer Name Role Phone AMANDA HNAEY Primary Care Provider [facility] RHEUMATOLOGY Rheumatologi st Assessment Encounter Date Assessment Date Assessment LastModified by Organization Details LastModified Time 06/14/2022 06/14/2022 RTC 1 yr CEE or prn [email or web address] Not available 06/14/2022 14:41:07 04/24/2023 04/24/2023 We completed your Medicare Wellness exam today. This was an opportunity to assess your overall well being including your ability to care for yourself, your mobility, memory, mental health, as well as your safety. With advancing age, it is important to assign someone in your life as your Health Care Proxy (HCP). This person should know what is important to you and what your wishes are for medical procedures if you cannot communicate your wishes yourself (severe illness, unconsciousness) . We discussed having a completed Health Care Proxy form today. In addition, today we started a conversation about your End of Life wishes. These conversations will continue over the years. Please consider reading the book, Being Mortal by Guzman Ahumada to help frame future conversations. We discussed the purpose of a MOLST form (Medical Orders for Life Sustaining Treatment) and completed this form if appropriate per your wishes. Vision and Hearing are senses that are critically important as we age. When impaired, they can contribute to memory loss, falls, and make it harder to drive, talk to family and friends, and engage in the world. Please get your vision checked yearly and your hearing checked when you start to notice hearing loss. We discussed approaches to lowering your risk of heart disease and stroke . Your blood pressure is at goal. Your cholesterol is higher than goal, work on eating more fruits and vegetables and avoiding saturated fats. We discussed cancer screening you may need as well as vaccines to prevent infections. Colon Cancer : Your risk of colon cancer is average. Due for colorectal screenin. If you are not planning to have a colonoscopy please screen with stool cards yearly. Breast Cancer : Breast Cancer Screening (mammography). Next mammogram due: 2022. Cervical Cancer Screening (pap test). Next pap due: not needed. Influenza Vaccine : Flu shot yearly. Tetanus Vaccine : Every 10 years. Due: 2027. The following vaccines are available from your pharmacy: Pneumonia Vaccine : PCV20: once after age 65. Shingles Vaccine : 2 shots after age 50. Covid Vaccine : Make sure you have received the most up to date covid vaccine. Not available 04/24/2023 10:57:05 08/25/2023 08/25/2023 RTC 1 yr CEE or prn. [email or web address] Not available 08/25/2023 16:10:07 Plan of Treatment Reminders Order Date Submit Date Provider Last Modified By Organization Details Last Modified Time Details Appointments None recorded. Lab fecal occult blood, immunoassay , stool - Lab- Create annual order through -IFOBT order set. 2022 023 [facility], [address] [place], [address], 12:25:58 Referral None recorded. Procedures None recorded. Surgeries None recorded. Imaging MAMMO, screening, tomosynthes is, bilateral - Note to Provider: Diag Mammo/US Breast/Guid ed Asp/Breast Bx as clinically indicated 2022 023 [facility] (Imaging), [address], [place], [address], 3 15:33:19 Medication Orders methotrexat e sodium 2.5 mg tablet 2021 022 [facility]/Pharmacy #[id number], [address] [place], [address], 10:25:00 leucovorin calcium 5 mg tablet 2021 022 [facility]/Pharmacy #[id number], [address] [place], [address], 10:25:00 Patient TargetsNo targets recorded. Patient Instructions Encounter Date Encounter Id Patient Instructions Last Modified By Organization Details Last Modified Time 04/24/2023 [id number] advance directives: care instructions Not available 04/24/2023 10:57:07 preventing falls : care instructions Not available 04/24/2023 10:57:07 hearing loss: care instructions Not available 04/24/2023 10:57:06 well visit, over 65: care instructions Not available 04/24/2023 10:57:07 Reason for Referral None Reported. Results Created Date Observation Date Name Description Value Unit Range Abnormal Flag Note LastModifiedBy Organization Detail LastModifiedTime 12/07/1912/06/2021 CBC WBC 4.68 K/? ? ?L 3.98-1 0.04 Not Available [address], [address], 12/06/2021 09:19:12 12/07/19 22 12/06/2021 CBC RBC 4.48 M/? ? ?L 3.93-5 .22 Not Available [address], [address], 12/06/2021 09:19:12 12/07/1912/06/2021 CBC HGB 14.0 g/dL 11.2-1 5.7 Not Available [address], [address], 12/06/2021 09:19:12 12/07/1912/06/2021 CBC HCT 43.7 % 34.1-4 4.9 Not Available [address], [address], 12/06/2021 09:19:12 12/07/19 22 12/06/2021 CBC MCV 97.5 fL 79.4-9 4.8 high Not Available [address], [address], 12/06/2021 09:19:12 12/07/19 22 12/06/2021 CBC MCH 31.3 pg 25.6-3 2.2 Not Available [address], [address], 12/06/2021 09:19:12 12/07/19 22 12/06/2021 CBC MCHC 32.0 g/dL 32.2-3 5.5 low Not Available [address], [address], 12/06/2021 09:19:12 12/07/19 22 12/06/2021 CBC plt 177 K/? ? ?L 182-36 9 low Not Available [address], [address], 12/06/2021 09:19:12 12/07/19 22 12/06/2021 CBC MPV 10.2 fL 9.4-12 .3 Not Available [address], [address], 12/06/2021 09:19:12 12/07/19 22 12/06/2021 CBC neut% 33.2 % 34.0-7 1.1 low Not Available [address], [address], 12/06/2021 09:19:12 12/07/19 22 12/06/2021 CBC neut# 1.55 1.56-6 .13 low Not Available [address], [address], 12/06/2021 09:19:12 12/07/19 22 12/06/2021 CBC lymph % 48.3 % 19.3-5 1.7 Not Available [address], [address], 12/06/2021 09:19:12 12/07/19 22 12/06/2021 CBC lymph # 2.26 K/? ? ?L 1.18-3 .74 Not Available [address], [address], 12/06/2021 09:19:12 12/07/19 22 12/06/2021 CBC mono% 14.7 % 4.7-12 .5 high Not Available [address], [address], 12/06/2021 09:19:12 12/07/19 22 12/06/2021 CBC mono# 0.69 0.24-0 .56 high Not Available [address], [address], 12/06/2021 09:19:12 12/07/19 22 12/06/2021 CBC eo% 3.2 % 0.7-5. 8 Not Available [address], [address], 12/06/2021 09:19:12 12/07/19 22 12/06/2021 CBC eo# 0.15 0.04-0 .36 Not Available [address], [address], 12/06/2021 09:19:12 12/07/19 22 12/06/2021 CBC baso% 0.4 % 0.1-1. 2 Not Available [address], [address], 12/06/2021 09:19:12 12/07/19 22 12/06/2021 CBC baso# 0.02 0.00-0 .08 Not Available [address], [address], 12/06/2021 09:19:12 12/07/19 22 12/06/2021 CBC RDW-CV 15.3 % 11.7-1 4.4 high Not Available [address], [address], 12/06/2021 09:19:12 12/07/19 22 12/06/2021 CBC Ig% 0.200 % 0.000- 1.500 Ig % >0.5 Indic ates possi ble Left Shift Not Available [address], [address], 12/06/2021 09:19:12 12/07/19 22 12/06/2021 CBC Ig# 0.010 0.000- 0.093 Not Available [address], [address], 12/06/2021 09:19:12 12/07/19 22 12/06/2021 CBC NRBC% 0.0 % 0.0-0. 2 Not Available [address], [address], 12/06/2021 09:19:12 12/07/19 22 12/06/2021 CBC NRBC# 0.000 0.000- 0.012 Not Available [address], [address], 12/06/2021 09:19:12 12/07/19 22 12/06/2021 ESR sed rate 14.0 0.0-15 .0 Not Available [address], [address], 12/06/2021 10:47:26 12/07/19 22 12/06/2021 COMP. METAB OLIC PANEL glucose 96 mg/dL 70-100 Not Available [address], [address], 12/06/2021 17:34:26 12/07/19 22 12/06/2021 COMP. METAB OLIC PANEL BUN 17 mg/dL 7-18 Not Available [address], [address], 12/06/2021 17:34:26 12/07/19 22 12/06/2021 COMP. METAB OLIC PANEL creatinine 0.8 mg/dL 0.8-1. 3 Not Available [address], [address], 12/06/2021 17:34:26 12/07/19 22 12/06/2021 COMP. METAB OLIC PANEL B/C 21.3 ratio Not Available [address], [address], 12/06/2021 17:34:26 12/07/19 22 12/06/2021 COMP. METAB OLIC PANEL GFR >=60ML /MIN mL/mi n normal >=60m L/min - Jeaneth l or midly reduc ed <60mL /min- Decre ased kidne y funct ion <15mL /min - Kidne y failu re Pate y Medic al Group calcu lates estim ated Glome rular Filtr ation Rate (eGFR ) using the Chron ic Kidne y Disea se Epide miolo gy Colla borat ion (CKD- EPI) Equat ion (Day r et. al 2020) as recom taylor d by the Natio nal Kidne y Found ation . eGFR is based on age, serum creat inine , and sex. CKD-E PI does not calcu late eGFR by race, does not apply to child chu (age <18 years ), and shoul d not be used in pregn gloria. Not Available [address], [address], 12/06/2021 17:34:26 12/07/19 22 12/06/2021 COMP. METAB OLIC PANEL sodium 140 mmol/ L 136-14 5 Not Available [address], [address], 12/06/2021 17:34:26 12/07/19 22 12/06/2021 COMP. METAB OLIC PANEL potassium 4.6 mmol/ L 3.5-5. 1 Not Available [address], [address], 12/06/2021 17:34:26 12/07/19 22 12/06/2021 COMP. METAB OLIC PANEL chloride 105 mmol/ L 96-107 Not Available [address], [address], 12/06/2021 17:34:26 12/07/19 22 12/06/2021 COMP. METAB OLIC PANEL anion gap 5.4 5.0-15 .0 Not Available [address], [address], 12/06/2021 17:34:26 12/07/19 22 12/06/2021 COMP. METAB OLIC PANEL CO2 30 mmol/ L 21-32 Not Available [address], [address], 12/06/2021 17:34:26 12/07/19 22 12/06/2021 COMP. METAB OLIC PANEL calcium 8.9 mg/dL 8.5-10 .3 Not Available [address], [address], 12/06/2021 17:34:26 12/07/19 22 12/06/2021 COMP. METAB OLIC PANEL total protein 7.0 g/dL 6.4-8. 2 Not Available [address], [address], 12/06/2021 17:34:26 12/07/19 22 12/06/2021 COMP. METAB OLIC PANEL albumin 3.7 g/dL 3.4-5. 0 Not Available [address], [address], 12/06/2021 17:34:26 12/07/19 22 12/06/2021 COMP. METAB OLIC PANEL globulin 3.3 g/dL Not Available [address], [address], 12/06/2021 17:34:26 12/07/19 22 12/06/2021 COMP. METAB OLIC PANEL A/G 1.1 ratio 0.8-2. 0 Not Available [address], [address], 12/06/2021 17:34:26 12/07/19 22 12/06/2021 COMP. METAB OLIC PANEL total bilirubin 0.70 mg/dL 0.00-1 .00 Not Available [address], [address], 12/06/2021 17:34:26 12/07/19 22 12/06/2021 COMP. METAB OLIC PANEL AST 22 U/L 0-37 Not Available [address], [address], 12/06/2021 17:34:26 12/07/19 22 12/06/2021 COMP. METAB OLIC PANEL ALT 30 U/L 6-63 Not Available [address], [address], 12/06/2021 17:34:26 12/07/19 22 12/06/2021 COMP. METAB OLIC PANEL alk. phos. 63 U/L 50-136 Not Available [address], [address], 12/06/2021 17:34:26 12/07/19 22 12/06/2021 C-ELOISA CTIVE PROTE IN-QU ANTIT ATIVE C-reactive protein -quant <2.0 mg/L 0.0-9. 0 < crp verif ied, cmd Not Available [address], [address], 12/06/2021 18:26:14 03/07/20 22 03/07/2022 WOUND CULTU RE/SM EAR special requests None Not Available [facility] (Outpatient) [address] [place], [address], 03/09/2022 11:03:10 03/07/20 22 03/08/2022 WOUND CULTU RE/SM EAR gram stain NO ORGANI SMS SEEN Not Available [facility] (Outpatient) [address] [place], [address], 03/09/2022 11:03:10 03/07/20 22 03/09/2022 WOUND CULTU RE/SM EAR wound culture/smea r PASTEU RELLA MULTOC TOMY abnormal Not Available [facility] (Outpatient) [address] [place], [address], 03/09/2022 11:03:10 03/07/20 22 03/09/2022 WOUND CULTU RE/SM EAR cefazolin <=4 susceptib le Not Available [facility] (Outpatient) [address] [place], [address], 03/09/2022 11:03:10 03/07/20 22 03/09/2022 WOUND CULTU RE/SM EAR ceftazidime 4 susceptib le Not Available [facility] (Outpatient) [address] [place], [address], 03/09/2022 11:03:10 03/14/20 22 03/14/2022 CBC WBC 5.96 K/? ? ?L 3.98-1 0.04 Not Available [address], [address], 03/14/2022 10:41:20 03/14/20 22 03/14/2022 CBC RBC 4.78 M/? ? ?L 3.93-5 .22 Not Available [address], [address], 03/14/2022 10:41:20 03/14/20 22 03/14/2022 CBC HGB 14.5 g/dL 11.2-1 5.7 Not Available [address], [address], 03/14/2022 10:41:20 03/14/20 22 03/14/2022 CBC HCT 45.5 % 34.1-4 4.9 high Not Available [address], [address], 03/14/2022 10:41:20 03/14/20 22 03/14/2022 CBC MCV 95.2 fL 79.4-9 4.8 high Not Available [address], [address], 03/14/2022 10:41:20 03/14/20 22 03/14/2022 CBC MCH 30.3 pg 25.6-3 2.2 Not Available [address], [address], 03/14/2022 10:41:20 03/14/20 22 03/14/2022 CBC MCHC 31.9 g/dL 32.2-3 5.5 low Not Available [address], [address], 03/14/2022 10:41:20 03/14/20 22 03/14/2022 CBC plt 164 K/? ? ?L 182-36 9 low Not Available [address], [address], 03/14/2022 10:41:20 03/14/20 22 03/14/2022 CBC MPV 9.9 fL 9.4-12 .3 Not Available [address], [address], 03/14/2022 10:41:20 03/14/20 22 03/14/2022 CBC neut% 33.4 % 34.0-7 1.1 low Not Available [address], [address], 03/14/2022 10:41:20 03/14/20 22 03/14/2022 CBC neut# 1.99 1.56-6 .13 Not Available [address], [address], 03/14/2022 10:41:20 03/14/20 22 03/14/2022 CBC lymph % 45.6 % 19.3-5 1.7 Not Available [address], [address], 03/14/2022 10:41:20 03/14/20 22 03/14/2022 CBC lymph # 2.72 K/? ? ?L 1.18-3 .74 Not Available [address], [address], 03/14/2022 10:41:20 03/14/20 22 03/14/2022 CBC mono% 17.8 % 4.7-12 .5 high SREV= Slide revie wed [facility]. Not Available [address], [address], 03/14/2022 10:41:20 03/14/20 22 03/14/2022 CBC mono# 1.06 0.24-0 .56 high Not Available [address], [address], 03/14/2022 10:41:20 03/14/20 22 03/14/2022 CBC eo% 2.7 % 0.7-5. 8 Not Available [address], [address], 03/14/2022 10:41:20 03/14/20 22 03/14/2022 CBC eo# 0.16 0.04-0 .36 Not Available [address], [address], 03/14/2022 10:41:20 03/14/20 22 03/14/2022 CBC baso% 0.3 % 0.1-1. 2 Not Available [address], [address], 03/14/2022 10:41:20 03/14/20 22 03/14/2022 CBC baso# 0.02 0.00-0 .08 Not Available [address], [address], 03/14/2022 10:41:20 03/14/20 22 03/14/2022 CBC RDW-CV 14.5 % 11.7-1 4.4 high Not Available [address], [address], 03/14/2022 10:41:20 03/14/20 22 03/14/2022 CBC Ig% 0.200 % 0.000- 1.500 Ig % >0.5 Indic ates possi ble Left Shift Not Available [address], [address], 03/14/2022 10:41:20 03/14/20 22 03/14/2022 CBC Ig# 0.010 0.000- 0.093 Not Available [address], [address], 03/14/2022 10:41:20 03/14/20 22 03/14/2022 CBC NRBC% 0.0 % 0.0-0. 2 Not Available [address], [address], 03/14/2022 10:41:20 03/14/20 22 03/14/2022 CBC NRBC# 0.000 0.000- 0.012 Not Available [address], [address], 03/14/2022 10:41:20 03/14/20 22 03/14/2022 ESR sed rate 18.0 0.0-15 .0 high Not Available [address], [address], 03/14/2022 10:58:06 03/14/20 22 03/14/2022 COMP. METAB OLIC PANEL glucose 92 mg/dL 70-100 Not Available [address], [address], 03/14/2022 12:47:50 03/14/20 22 03/14/2022 COMP. METAB OLIC PANEL BUN 19 mg/dL 7-18 high Not Available [address], [address], 03/14/2022 12:47:50 03/14/20 22 03/14/2022 COMP. METAB OLIC PANEL creatinine 0.9 mg/dL 0.8-1. 3 Not Available [address], [address], 03/14/2022 12:47:50 03/14/20 22 03/14/2022 COMP. METAB OLIC PANEL B/C 21.1 ratio Not Available [address], [address], 03/14/2022 12:47:50 03/14/20 22 03/14/2022 COMP. METAB OLIC PANEL GFR >=60ML /MIN mL/mi n normal >=60m L/min - Jeaneth l or midly reduc ed <60mL /min- Decre ased kidne y funct ion <15mL /min - Kidne y failu re Pate y Medic al Group calcu lates estim ated Glome rular Filtr ation Rate (eGFR ) using the Chron ic Kidne y Disea se Epide miolo gy Colla borat ion (CKD- EPI) Equat ion (Day r et. al 2020) as recom taylor d by the Natio nal Kidne y Found ation . eGFR is based on age, serum creat inine , and sex. CKD-E PI does not calcu late eGFR by race, does not apply to child chu (age <18 years ), and shoul d not be used in pregn gloria. Not Available [address], [address], 03/14/2022 12:47:50 03/14/20 22 03/14/2022 COMP. METAB OLIC PANEL sodium 142 mmol/ L 136-14 5 Not Available [address], [address], 03/14/2022 12:47:50 03/14/20 22 03/14/2022 COMP. METAB OLIC PANEL potassium 4.3 mmol/ L 3.5-5. 1 Not Available [address], [address], 03/14/2022 12:47:50 03/14/20 22 03/14/2022 COMP. METAB OLIC PANEL chloride 105 mmol/ L 96-107 Not Available [address], [address], 03/14/2022 12:47:50 03/14/20 22 03/14/2022 COMP. METAB OLIC PANEL anion gap 8.5 5.0-15 .0 Not Available [address], [address], 03/14/2022 12:47:50 03/14/20 22 03/14/2022 COMP. METAB OLIC PANEL CO2 29 mmol/ L 21-32 Not Available [address], [address], 03/14/2022 12:47:50 03/14/20 22 03/14/2022 COMP. METAB OLIC PANEL calcium 8.4 mg/dL 8.5-10 .3 low Not Available [address], [address], 03/14/2022 12:47:50 03/14/20 22 03/14/2022 COMP. METAB OLIC PANEL total protein 6.9 g/dL 6.4-8. 2 Not Available [address], [address], 03/14/2022 12:47:50 03/14/20 22 03/14/2022 COMP. METAB OLIC PANEL albumin 3.4 g/dL 3.4-5. 0 Not Available [address], [address], 03/14/2022 12:47:50 03/14/20 22 03/14/2022 COMP. METAB OLIC PANEL globulin 3.5 g/dL Not Available [address], [address], 03/14/2022 12:47:50 03/14/20 22 03/14/2022 COMP. METAB OLIC PANEL A/G 1.0 ratio 0.8-2. 0 Not Available [address], [address], 03/14/2022 12:47:50 03/14/20 22 03/14/2022 COMP. METAB OLIC PANEL total bilirubin 0.50 mg/dL 0.00-1 .00 Not Available [address], [address], 03/14/2022 12:47:50 03/14/20 22 03/14/2022 COMP. METAB OLIC PANEL AST 20 U/L 0-37 Not Available [address], [address], 03/14/2022 12:47:50 03/14/20 22 03/14/2022 COMP. METAB OLIC PANEL ALT 22 U/L 6-63 Not Available [address], [address], 03/14/2022 12:47:50 03/14/20 22 03/14/2022 COMP. METAB OLIC PANEL alk. phos. 70 U/L 50-136 Not Available [address], [address], 03/14/2022 12:47:50 03/14/20 22 03/14/2022 C-ELOISA CTIVE PROTE IN-QU ANTIT ATIVE C-reactive protein -quant 7.7 mg/L 0.0-9. 0 Not Available [address], [address], 03/14/2022 12:47:51 04/17/20 23 04/17/2023 LIPID PANEL cholesterol 245 mg/dL <200 mg/dl Tobias able 200-2 39 mg/dl Borde rline High >240 mg/dl High Not Available [address], [address], 04/17/2023 11:35:05 04/17/20 23 04/17/2023 LIPID PANEL triglyceride s 144 mg/dL <150 mg/dL Jeaneth l 150-1 99 mg/dL Borde rline High 200-4 99 mg/dL High >500 mg/dL Very High Not Available [address], [address], 04/17/2023 11:35:05 04/17/20 23 04/17/2023 LIPID PANEL direct HDL 63 mg/dL <40 mg/dl - Major Risk for CHD >60 mg/dl - Negat lorraine Risk for CHD Not Available [address], [address], 04/17/2023 11:35:05 04/17/20 23 04/17/2023 LDL - CALCU LATED LDL - calculated 153.2 RISK CATEG ORY LDL GOAL _ CHD or CHD Risk Equiv alent s <100 mg/dl (10-y ear risk >20%) 2+ Risk Facto rs <130 mg/dl (10-y ear risk <= 20%) 0-1 Risk Facto r? <160 mg/dl ? Almos t all peopl e with 0-1 risk facto r have a 10 year risk <10%, thus 10 year risk asses ment in peopl e with 0-1 risk facto r is not neces danial. Not Available [address], [address], 04/17/2023 11:35:06 10/20/19 24 10/21/2023 IMMUN OCHEM ICAL FECAL OCCUL T BLOOD ifobt NEGATI VE negati ve Not Available [address], [address], 10/21/2023 12:25:58 01/24/20 22 01/23/2022 CT, chest No observ ation record ed. [facility] [address] [facility], [place], [address], 01/23/2022 18:15:12 04/24/20 23 12/16/2022 trans -thor acic echoc ardio gram (TTE) (PROC ) No observ ation record ed. BARCODE Not Available 2022 16:43:29 04/24/20 23 12/16/2022 trans -thor acic echoc ardio gram (TTE) (PROC ) No observ ation record ed. [email or web address] Not Available 2022 10:57:23 05/01/20 23 05/01/2023 MAMMO , scree edward, tomos ynthe sis, bilat eral MAMMO, SCREEN , EMILY, BILAT: 023. BI-RAD S: 1 CLINIC AL: 67-yea r old Female for Bilate ral Screen ing Mammog juvenal. No person al or first- degree family histor y of breast cancer . PRIOR EXAMS: Review ed previo us images from 2020, 2017 and 2011. MAMMOG ZAIRA TECHNI QUE: 3D mammog zaira (tomos ynthes is) and 2D mammog zaira (C-vie w) images are genera marissa. Images review ed with a CAD system . DENSIT Y B. There are scatte red areas of fibrog landul ar densit y. MAMMOG ZAIRA FINDIN GS Bilate ral: No suspic ious mass, asymme try, microc alcifi cation , or other abnorm ality seen. CONCLU AMARJIT * No eviden ce of malign gloria. RECOMM ENDATI ONS Bilate ral * Annual screen ing mammog zaira. ADMINI STRATI VE: A lay summar y was mailed to your patien mirna abreu the result s and recomm endati ons for follow -up. OVERAL L ASSESS MENT CATEGO RY BI-RAD S-1: Negati ve. The [employer] recomm ends annual screen ing mammog zaira beginn ing at age 40 for women with averag e risk of breast cancer . ELECTR ONICAL LY SIGNED : Karlee Magallanes ms, M.D. on 2022 at 03:32: 35 PM Lucy townsend: Karlee Magallanes [facility] (Imaging) [address] [place], [address], 05/02/2023 08:17:17 Result Notes None recorded. Problems Name Problem SNOMED Code Status Onset Date Resolution Date Notes Provider Name and Address Organization Details Recorded Time Abnormal findings on diagnost ic imaging of breast 382643500 Completed 12/11/2021 DERRICK Espinoza [address] [place], [place] [address], [address], [facility] 2 08:07:32 Mammogra phy abnormal [id number] Completed 12/11/2021 DERRICK Espinoza [address] [place], [place] [address], [address], [facility] 2 08:12:14 Rheumato id arthriti s 11601444 Active 2017 [facility] [place] DERRICK Espinoza [address] [place], [place] [address], [address], [facility] 3 15:48:59 Long-ter m drug therapy Active 2017 DERRICK Espinoza [address] [place], [place] [address], [address], [facility] 2 08:12:05 Reactive depressi on (situati onal) 74009802 Active 2017 treated in the . 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 Procedures Surgical History Date Name Laterality Status Provider Name and Address Organization Details Recorded Time 08/25/19 24 Fundus Photography completed Davida Chance, OD [address] [place] [address], [phone], [facility] 08/25/2023 16:05:56 08/25/19 24 Refraction completed Davida Chance, OD [address] [place], [address], [facility] 08/25/2023 16:05:18 04/24/20 23 Medicare Wellness Visit completed Alaina Molina [facility] 04/24/2023 09:36:14 06/14/20 22 Refraction completed Davida Chance, OD [address] [place], [address], [facility] 06/14/2022 10:35:11 12/11/19 22 Medicare Wellness Visit completed Alda Vail [facility] 12/07/2021 16:19:14 02/15/20 21 Refraction completed Davida Chance, OD [address] [place], [id number], [facility] 02/14/2021 09:32:46 12/08/19 21 Medicare Wellness Visit completed Ashley Nicholson CMA [facility] 12/05/2020 13:50:19 12/08/19 21 Advanced Care Planning completed DERRICK Espinoza [address] [place], [id number], [facility] 12/07/2020 10:24:47 10/28/19 19 Knee (Left) Injection completed Aguila Ferreira MD [address] [place] [address], [id number], [facility] 10/28/2018 08:19:53 03/13/20 18 Smoking cessation counseling completed [facility] 03/13/2018 16:18:04 03/13/20 18 Carbon Monoxide Testing completed [facility] 03/13/2018 16:18:04 07/28/18 59 Remove tonsils and adenoids completed Selene Sun PA-C [address] [place] [address], [id number], [facility] 05/11/2018 11:33:45 Tooth root removal completed Selene Sun PA-C [address] [place] [address], [id number], [facility] 05/11/2018 11:34:02 Imaging Results Imaging Date Name Status LastModified by Organization Details LastModified Time 01/23/2022 CT, chest completed [place] [facility] [address] [place], [address], 01/23/2022 18:15:12 12/16/2022 trans-thoracic echocardiogram (TTE) (PROC) completed [email or web address] Information not available 04/24/2023 16:43:29 12/16/2022 trans-thoracic echocardiogram (TTE) (PROC) completed [email or web address] Information not available 04/25/2023 10:57:23 05/01/2023 MAMMO, screening, tomosynthesis, [facility] [address], [place], [place], [address], 05/02/2023 08:17:17 Procedure Notes None recorded. Medical Equipment None Reported. Allergies No known drug allergies Medications Name Sig Start Date Stop Date Status Note LastModified by Organization Details LastModified Time prednison e 20 mg tablet Take 1 tablet every day by oral route. 11/09 completed 2.5 mg daily 10/27/18 Not Available Not Available Not Available prednison e 5 mg tablet TAKE 2 TABLETS BY MOUTH EVERY DAY 11/09 completed 2.5 mg daily 10/27/18 Not Available Not Available Not Available acetamino phen 300 mg-codein e 30 mg tablet 03/27 completed States doesn't help pain and does not like narcotic s Not Available Not Available Not Available Aleve 220 mg tablet Take 1 tablet every 12 hours by oral route. 12/14 completed PRN Not Available Not Available Not Available cefadroxi l 500 mg capsule TAKE 1 CAPSULE BY MOUTH TWICE A DAY FOR 7 DAYS 04/24 completed Not Available Not Available Not Available oxycodone -acetamin ophen 5 mg-325 mg tablet Take 1 tablet every 6 hours by oral route. 03/27 completed Pt. states doesn't help pain or tingling . PRN States will not use again Not Available Not Available Not Available amoxicill in 875 mg tablet TAKE 1 TABLET BY MOUTH EVERY 12 HOURS 04/16 completed Not Available Not Available Not Available methotrex ate sodium 2.5 mg tablet TAKE 3 TABLETS ORALLY EVERY WEEK active Not Available Not Available No t Available prednison e 1 mg tablet TAKE 4 TABLETS BY MOUTH EVERY DAY 12/07 completed Not taking 08/18/20 Not Available Not Available Not Available cephalexi n 500 mg capsule 04/04 completed Not Available Not Available Not Available ibuprofen 200 mg tablet Take 3 tablets every 6 hours by oral route. active Taking 600 mg BID PRN rarely Not Available Not Available Not Available leucovori n calcium 5 mg tablet TAKE 2 TABLETS BY MOUTH EVERY WEEK active Not Available Not Available No t Available ibuprofen 600 mg tablet TAKE 1 TABLET BY MOUTH EVERY 6 HOURS NEEDED FOR PAIN 05/04 completed Pt. states has been taking this q 6 hours for last 6 weeks. 03/27/18 pt stopped changed Naprosyn 220mg bid Not Available Not Available Not Available Pepcid 20 mg tablet Take 1 tablet every day by oral route for 30 days. 03/13 completed Not Available Not Available Not Available amoxicill in 875 mg-potass ium clavulana te 125 mg tablet TAKE 1 TABLET BY MOUTH TWICE A DAY FOR 7 DAYS 04/24 completed Not Available Not Available Not Available folic acid 800mcg/d ay active Not Available Not Available No t Available Enbrel SureClick 50 mg/mL (1 mL) subcutane ous pen injector INJECT 1 PEN UNDER THE SKIN EVERY 7 DAYS. active Not Available Not Available No t Available Shingrix (PF) 50 mcg/0.5 mL intramusc ular suspensio n, kit PHARMACY ADMINIST ERED 12/07 completed Had first vaccine 0 Not Available Not Available Not Available [facility] COVID-[facility] Vaccine (PF) 30 mcg/0.3 mL IM susp (purple) PHARMACY ADMINIST ERED 12/07 completed Not Available Not Available Not Available Vitals Date Recorded Body height Provider Name an d Address Organization Details Last Updated DateTime 12/20/2021 176.53 cm Griselda Yolanda [facility] 12/20/2021 09:39:58 Date Recorded Body mass index (BMI) Body weight Provider Name and Address Organization Details Last Updated DateTime 12/20/2021 30.3 kg/m2 75794.21 g Griselda Yolanda [facility] 12/20/2021 09:42:11 Date Recorded Heart rate Provider Name an d Address Organization Details Last Updated DateTime 12/20/2021 82 /min Griselda Guerrero [facility] 12/20/2021 09:48:03 Date Recorded Body height Provider Name an d Address Organization Details Last Updated DateTime 04/05/2022 176.53 cm Griseldamariano Guerrero [facility] 04/05/2022 10:31:34 Date Recorded Body mass index (BMI) Body weight Provider Name and Address Organization Details Last Updated DateTime 04/05/2022 30.5 kg/m2 67698.68 sunitha Griselda Guerrero [facility] 04/05/2022 10:34:00 Date Recorded Heart rate Provider Name an d Address Organization Details Last Updated DateTime 04/05/2022 61 /min Griselda Guerrero [facility] 04/05/2022 10:38:25 Date Recorded Body weight Provider Name an d Address Organization Details Last Updated DateTime 04/24/2023 23983.02 g Alaina Coronel [facility] 04/24/2023 10:19:27 Date Recorded Body mass index (BMI) Body height Provider Name and Address Organization Details Last Updated DateTime 04/24/2023 30.2 kg/m2 176.53 cm Alaina Molina [facility] 04/24/2023 10:19:33 Date Recorded Heart rate Provider Name an d Address Organization Details Last Updated DateTime 04/24/2023 60 /min Alaina Homer burger LIA [facility] 04/24/2023 10:24:20 Date Recorded Systolic blood pressure Diastolic blood pressure Provider Name and Address Organization Details Last Updated DateTime 12/20/2021 122 mm[Hg] 80 mm[Hg] Griselda Guerrero LPN [facility] 12/20/2021 09:49:07 Date Recorded Systolic blood pressure Diastolic blood pressure Provider Name and Address Organization Details Last Updated DateTime 04/05/2022 132 mm[Hg] 80 mm[Hg] Griselda Guerrero LPN [facility] 04/05/2022 10:38:29 Date Recorded Systolic blood pressure Diastolic blood pressure Provider Name and Address Organization Details Last Updated DateTime 04/24/2023 130 mm[Hg] 76 mm[Hg] Alaina Molina LIA [facility] 04/24/2023 10:26:11 Social History Question Answer Notes LastModified by Organizat ion Details LastModified Time Tobacco Smoking Status Former Smoker stopped Feb, 2018. [facility]/2011 09:11:59 Do You Have An Advance Directive? No Information not available 09/03/2011 What Is Your Level Of Alcohol Consumption? None Stopped 02/2018 [email or web address] Information not available 04/04/2020 What Is Your Level Of Caffeine Consumption? Heavy [email or web address] Information not available 03/13/2018 What Type Of Diet Are You Following? REGULAR Information not available 09/03/2011 Which Illicit Or Recreational Drugs Have You Used? 0 Information not available 05/11/2018 Do You Or Have You Ever Used E-cigarettes Or Vape? 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 1-5yearssincel nicky Information not available 05/11/2018 How Many Days In The Past Year Have You Had A Heavy Drinking Consumption (4+ Female, 5+ Male)? 0 Information not available 05/11/2018 Are There Any Guns Present In Your Home? No [email or web address] Information not available 03/13/2018 Live Alone Or With Others? Alone Information not available 09/03/2011 Does The Patient Have Difficulty Speaking Iraqi? No [email or web address] Information not available 03/13/2018 Does The Patient Have Difficulty Reading Iraqi? No [email or web address] Information not available 03/13/2018 Patient Has Health Care Proxy Signed And In Chart No Information not available 09/03/2011 CCM Consent Discussion 11/09/2018 [email or web address] Information not available 11/10/2018 Marital Status Single Informatio n not available 09/03/2011 Mosquito Repellent Used Routinely Yes Information not available 03/13/2018 What Was The Date Of Your Most Recent Tobacco Screening? 04/24/2023 [email or web address] Information not available 04/24/2023 How Many Children Do You Have? 0 Information not available 09/03/2011 What Is Your Current Pack Years? 30ormorepackye ars 40+ Years, 1 Ppd Information not available 05/11/2018 Seat Belts Used Routinely Yes [email or web address] Information not available 03/13/2018 Are You Sexually Active? No Not Since 2000 Information not available 09/03/2011 Smoke Alarm In Home Yes [email or web address] Information not available 03/13/2018 At What Age Did You Start Smoking Tobacco? 1976 Information not available 09/03/2011 Do You Or Have You Ever Used Smokeless Tobacco? Never Used Smokeless Tobacco Information not available 12/05/2020 General Stress Level Low [email or web address] Information not available 03/13/2018 Do You Use Sunscreen Routinely? Yes Information not available 03/13/2018 Sex: Unknown Functional Status None recorded. Mental Status None recorded. Family History Relationship Description Onset Age of this Age Resolved Age Notes LastModified by Organization Details LastModified Time Mother Diabetes mellitus previo usly record ed as Diabet es [id number] Not available 03/08/2013 03:01:15 Mother Hypertensive disorder [email or web address] Not available 2017 11:34:34 Mother Myocardial infarction [email or web address] Not available 05/11 11:34:56 Mother Heart disease [email or web address] Not available 2017 11:35:17 Father Rheumatoid arthritis [email or web address] Not available 2017 08:53:48 Medical History Condition Response Rheumatoid Arthritis Y INFECTIOUS DISEASE GERD Y RENAL / GENITOURINARY Y Gynecological HistoryNo gynecological history recorded. Obstetrics History GPAL:G 0 P 0 0 0 0 Immunizations Vaccine Type Date Status Note Provider Nam e and Address Organization Details Recorded Time Tdap 8 completed Not Available [facility] 08/14/2019 02:30:32 Influenza, split virus, quadrivalent, PF 8 completed Not Available [facility] 08/14/2019 02:33:43 Pneumococcal conjugate PCV 13 9 completed Not Available [facility] 08/14/2019 02:30:33 Influenza, high-dose, trivalent, PF 9 completed Not Available [facility] 08/14/2019 02:24:37 Influenza, high-dose, quadrivalent, PF 0 completed [facility]2020 11:25:10 Influenza, high-dose, quadrivalent, PF 1 completed [facility] 05/25/2021 08:50:21 SARS-COV-2 (COVID-19) vaccine, UNSPECIFIED 0 completed [facility] Coy [facility] 08/18/2020 09:16:13 SARS-COV-2 (COVID-19) vaccine, UNSPECIFIED 1 completed Sarah Coy LPN null, [facility] 08/18/2020 09:16:44 zoster recombinant 0 completed Nupur Gunn R[facility] 12/07/2020 09:22:18 zoster recombinant 0 completed Nupur Gunn R[facility] 12/07/2020 09:22:28 Influenza, high-dose, quadrivalent, PF 3 completed DERRICK Espinoza [address] [place] [address], [id number], [facility] 04/24/2023 10:37:27 COVID-19, mRNA, LNP-S, PF, 30 mcg/0.3 mL dose 2 completed Griselda Guerrero LPN null, [facility] 04/05/2022 10:37:02 Influenza, high-dose, quadrivalent, PF 2 completed Griselda Guerrero LPN null, [facility] 2022 14:07:20 Past Encounters Encounter ID Performer Location Encounter Start Date Encounter Closed Date Diagnosis/Indication Diagnosis SNOMED-CT Code Diagnosis ICD10 Code Diagnosis Note [id number] [facility], OFFICE [address] [place] [address] 09/03/2011 08:49:48 09/03/2011 10:19:07 [id number] Radiology , [address] [address] 09/12/2011 13:29:11 09/17/2011 14:45:53 [id number] Radiology , [address] [address] 09/20/2011 11:22:03 09/24/2011 11:43:28 [id number] Radiology , [address] [address] 09/20/2011 11:22:55 09/24/2011 11:44:07 [id number] Jon Reed MD , [facility], OFFICE [address] [place] [address] 03/13/2018 15:37:01 03/16/2018 11:43:25 Screening mammography 85092083 Z12.31 Screening for disorder 950302730 Z11.59 Cigarette smoker 9864874 7 F17.210 Tobacco user 895988607 Z 72.0 Less than 1 pack per week. Wanting to quit. Active or passive immunization 944363210 Z23 Swelling of hand 5972592 03 R22.33 [id number] Aguila Ferreira MD [facility] [place], [address] [address] 03/27/2018 13:53:45 03/27/2018 16:43:37 Rheumatoid arthritis 02403904 M06.9 Highly likely Sero positive RA. Symptoms only for about 4 weeks, so I am a little hesitant to make a formal diagnosis. Discussed Dx of RA. Check CCP antibody.W ill commence treatment for RA.Discuss ed therapeuti c options. Use of methotrexa te discussed in detail including potential side effects, possible adverse effects of alcohol, need for regular lab monitoring . Provided patient with literature . No known history of hepatitis B or hepatitis C. Baseline labs and chest x-ray will be checked. MTX 15mg/wk. Review in 4 weeks. For now, continue prednisone 10 mg daily. Hope to begin taper at next visit. Discussed calcium, vit D while on prednisone . [id number] Aguila Ferreira MD Rheumat[facility], [facility] [address] [place] [address] 05/04/2018 09:40:17 05/05/2018 07:08:57 Rheumatoid arthritis 80405436 M05.69 Sero positive, CCP + RA. There has been substantia l improvemen t on current prednisone 10 + MTX 15 past 5 weeks. However, still active synovitis. Explained that with CCP + status, prognosis is more guarded and there is a need to treat more aggressive ly.Will increase MTX to 20 mg weekly.In 2 weeks she will attempt to reduce dose of prednisone to 7.5. Should probably check BMD scan soon. Follow up 6 weeks. Long-term drug therapy 726680537 Z79.899 On shelter MTX; Needs lab monitoring ; Check CBC, LFT's, creat Long-term current use of systemic steroid 1490777911 46681 Z79.52 10 mg with plans to taper.Cont inue calcium and Vit D. [id number] Amanda Walsh , [facility], OFFICE [address] [place] [address] 05/11/2018 11:05:39 05/11/2018 12:39:20 Adult health examination 555252621 Z00.00 see Risk Assessment and Lifestyle Change Counseling section above Depression screening 171 890612 Z13.89 depression screening tool administer ed, entered into emr, scored and discussed, time greater than 7.5 minutes Rheumatoid arthritis 698 54598 M06.9 Continue care plan per rheum Screening for malignant neoplasm of cervix 485520213 Z12.4 Ex-smoker 2909211 Z87.89 1 Screening for malignant neoplasm of colon 678300776 Z12.11 Hyperglycemia 12910602 R 73.9 Non fasting glucose elevated. Will check fasting glucose. Overweight 559974982 E66 .3 Elevated blood-pressure reading without diagnosis of hypertension 840024724 R03.0 Monitor BP at home. If consistent ly >130/80, come back for BP recheck sooner than 6 months. Active or passive immunization 984779184 Z23 Vaginal mass 022449929 N 89.8 Pt co-evaluat ed with Dr. Walsh. Will check transvagin al ultrasound for further characteri zation of mass. At this point concern for malignancy is low as it has been present for at least 10 years and per pt has remained unchanged. [id number] Aguila Ferreira MD Rheumat[facility] [place], [address] [address] 06/16/2018 09:42:04 06/17/2018 07:10:06 Rheumatoid arthritis 54017789 M05.69 Sero positive, CCP + RA. There has been substantia l improvemen t on current prednisone 10 + MTX 20 . However, even on the 10 mg/d prednisone , there is still obvious active synovitis. Explained that with CCP + status, prognosis is more guarded and there is a need to treat more aggressive ly.Discuss ed options.Pr ior hx of PPD, treated. However will choose Enbrel because probably lower TB risk c/w Humira. Follow up 6 weeks. Menopausal and postmenopausal disorders 348570932 N95.9 psot menopausal , on steroids. Also RA. Risk for osteoprosi s. Check scan.Calci um and vit D supplement s. 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 There has been substantia l improvemen t on current prednisone 10 + MTX 20 . However, even on the 10 mg/d prednisone , there is still obvious active synovitis. Starting Enbrel today. Continue MTX. Up to date on labs. Cont pred 10/d for now, but expect to taper at next visit.BMD pending. Follow up 6 weeks. [id number] Aguila Ferreira MD Rheumatol [address] [address] 08/11/2018 08:42:56 08/13/2018 14:53:38 Rheumatoid arthritis 11645172 M05.69 Sero positive, CCP + RA. Excellent early response to Enbrel (started 5 weeks ago).Expec t to see further improvemen t. Continue EnbrelCont MTX 20 mg/wk.May try slow taper of prednisone : 5 mg 3 weeks, 4 mg 3 weeks etc. f/u 3 mo, sooner if needed. Bilateral knee pain 1187 328613 4234593 M25.561 M25.562 Bilat knee involvemen t with RA.Some improvemen t with Enbrel, but persisting swelling. If still symptomati c at next visit will check x ray and will advise local injeciton. Long-term drug therapy 189009897 Z79.899 On shelter MTX; Needs lab monitoring ; Check CBC, LFT's, creat [id number] Aguila Ferreira MD Rheumatol [place], [address] [address] 10/27/2018 10:02:56 10/27/2018 11:01:35 Rheumatoid arthritis 14742499 M05.69 Sero positive, CCP + RA.Good response to Enbrel. Still synovitis both knees. May see further improvemen t. Continue EnbrelCont MTX 20 mg/wk.May continue slow taper of prednisone : 3 mg Knee joint effusion 2022 12037 M25.462 Inflammato ry effusion bilat l > R. Local inj today on L. Return 2 weeks for R injection. Long-term drug therapy 047546016 Z79.899 On shelter MTX; Needs lab monitoring ; Check CBC, LFT's, creat [id number] Selene Sun PA-C , [facility], OFFICE [address] [place] [place] [address] 11/09/2018 11:18:43 11/09/2018 14:10:39 Rheumatoid arthritis 10725195 M06.9 Continue care plan per rheum. Return in 6 months for wellness visit or sooner as needed. Active or passive immunization 918638925 Z23 [id number] Aguila Ferreira MD Rheumatol [address] [address] 11/16/2018 10:54:20 11/17/2018 14:13:01 Rheumatoid arthritis 77278853 M05.69 Sero positive, CCP + RA.Good response to Enbrel, but still had synovitis at knees at visit 3 weeks ago.L knee injection helped globally. I am not sure whether this will be sustained. . Continue EnbrelCont MTX 20 mg/wk.May continue slow taper of prednisone : 2 mg October and November, then 1 mg. Discussed could have flare in sxs as steroid effect from knee injection wanes. Should let me know.RV in January. 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 [id number] Aguila Ferreira MD Rheumatol [address] [address] 01/26/2019 09:10:46 01/26/2019 15:19:02 Rheumatoid arthritis 62511522 M05.69 Sero positive, CCP + RA.On MTX. Good response to Enbrel, but with prednisone taper to just 1 mg, clearly has recurrent synovitis. Continue EnbrelCont MTX 20 mg/wk. Discussed options.If she can fully control sxs on just 2 or 3 mg of prednisone , we can go with that for a while.If in 3 mo, still signs active synovitis, then will need to strongly consider change from Enbrel Long-term drug therapy 031785178 Z79.899 On shelter MTX; Needs lab monitoring ; CBC, LFT's, creat all OK 10/27/18. Rpeat today. [id number] Aguila Ferreira MD Rheumatol [address] [address] 05/03/2019 10:09:28 05/04/2019 06:00:31 Active or passive immunization 723106469 Z23 flu shot today.Disc ussed should get Shingrix. Rheumatoid arthritis 698 [address]7061 M05.69 Sero positive, CCP + RA.On MTX. Good response to Enbrel, but with prednisone taper to just 1 mg, clearly had recurrent synovitis. We boosted prednisone to just 2 mg and, whether or not this was responsibl e, doing MUCH better today.Cont inue EnbrelCont MTX 20 mg/wk.Cont inue prednisone 2 mg/d indefinite ly. Update labs 3 mo.Return 6 mo or sooner if needed. [id number] Aguila Ferreira MD Rheumatol [facility], [address] [address] 11/11/2019 10:46:00 11/11/2019 11:53:47 Rheumatoid arthritis 57149059 M05.69 Sero positive, CCP + RA.On MTX. Good response to Enbrel, but with prednisone taper to just 1 mg, clearly had recurrent synovitis. We boosted prednisone to just 2 mg and, whether or not this was responsibl e, doing MUCH better .Continue EnbrelCont MTX 20 mg/wk.Cont inue prednisone 2 mg/d indefinite ly. Update labs 3 mo. Knee joint effusion 2022 80477 M25.462 Inflammato ry effusions in past. L knee injected 1 year ago with sustained benefit, but some sxs recurring. Will try to hold off on injection, but if sxs progress, should call and we can schedule injection. Long-term drug therapy 433128761 Z79.899 On shelter MTX; Needs lab monitoring ; CBC, LFT's, creat all OK Moe. In view of viral epidemic, risk of exposure at routine lab follow up for DMARD medication probably outweighs benefit of labs. Hold for 3 mo. RV 3 mo. [id number] DERRICK Espinoza , [facility], OFFICE [address] [place] [address] 11/19/2019 15:32:13 11/22/2019 15:26:16 SARS-CoV-2 950666975 U07.1 Pt +COVID19, began experienci ng symptoms on 11/17/19. Symptoms have improved today, pt instructed to call the office if she develops any SOB or worsening symptoms. Pt has been informed of return to work guidelines , she reports she is not going back until December 01 or . Pt has discontinu ed Enbrel and Methotrexa te for [address] Ferreira. [id number] Aguila Ferreira MD Rheumatol [address] [address] 04/04/2020 10:49:11 04/06/2020 06:52:08 Rheumatoid arthritis 53810146 M05.69 Sero positive, CCP + RA.On MTX. Good response to Enbrel, but with prednisone taper to just 1 mg, clearly had recurrent synovitis. We boosted prednisone to just 2 mg and, whether or not this was responsibl e, doing MUCH better. No swelling. denies AM stiffness. I do think she should try again to taper off prednisone .Continue EnbrelCont MTX 20 mg/wk Next visit if off prednisone , will consider reducing dose of MTX. 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 RV 3 mo. [id number] Sandra Barnett , [facility], OFFICE [address] [place] [address] 05/20/2020 07:17:29 05/22/2020 12:04:36 Active or passive immunization 909820027 Z23 [id number] Aguila Ferreira MD Rheumatol [facility], [address] [address] 08/18/2020 09:10:15 08/18/2020 14:07:30 Rheumatoid arthritis 81312747 M06.9 Sero positive, CCP + RA. On MTX. Good response to Enbrel, now off prednisone entirely. Continue Enbrel Reduce MTX to 15 mg/wk mg/wk Acquired thrombocytopenia 79042117 D69.6 Borderline low plts. Trend has been downward over past year. Will reduce dose MTX, update labs in a month. Long-term drug therapy 842499877 Z79.899 MTX. LFTs OK. follow [id number] DERRICK Espinoza , [facility], OFFICE [address] [place] [address] 12/07/2020 09:13:26 12/08/2020 09:35:19 Adult health examination 606544672 Z00.00 Counseling 731164267 Z71 .9 Depression screening 171 094066 Z13.31 depression screening tool administer ed, entered into emr, scored and discussed, time greater than 7.5 minutes Advance di rective discussed with patient 356383539 Z71.89 MOLST filled out today Screening mammography 24 313111 Z12.31 Screening for malignant neoplasm of colon 538644739 Z12.11 Rheumatoid arthritis 698 36098 M06.9 On Methotrexa te and Enbrel, follows with [facility] rheumatolo gy Ex-smoker 5970003 Z87.89 1 [id number] Monse Mendiola MD Rheumatol [place], [address] [address] 12/14/2020 07:51:24 12/14/2020 18:08:22 Rheumatoid arthritis 93588231 M06.9 Sero positive, CCP + RA. On MTX. Good response to Enbrel, now off prednisone entirely. Continue Enbrel and mtx. Trying to consolidat e remission then will try to wean down mtx slowly or space out Enbrel. Check labs for disease activity and medication toxicity (standing orders). Patient got COVID vaccine and PCV-13. RTC in 4 months or sooner if needed. Acquired thrombocytopenia 93946117 D69.6 Borderline low plts. Trend has been downward over past year. Monitor. Long-term drug therapy [id number] Z79.899 On mtx and Enbrel. Monitor labs. Continue folic acid. Patient to hold mtx and enbrel if fever or any sign of infection. 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 not visually significan t. monitor annually. Presbyopia 38805699 H52. 4 [id number] Monse Mendiola MD Rheumat[facility] [address] [address] 04/16/2021 09:31:17 04/16/2021 10:36:14 Rheumatoid arthritis 52807392 M06.9 Sero positive, CCP + RA. On MTX. Good response to Enbrel, now off prednisone entirely. Continue Enbrel and mtx. Decrease methotrexa te to 12.5 mg weekly. Check labs for disease activity and medication toxicity (standing orders). Patient got COVID vaccine and PCV-13.COV ID booster discussed. Patient to hold methotrexa te one week after the booster.Pa tient to get flu shot. RTC in 4 months or sooner if needed. Long-term drug therapy [id number] Z79.899 On mtx and Enbrel. Monitor labs. Continue folic acid. Patient to hold mtx and enbrel if fever or any sign of infection. Patient needs a full skin exam, she will check with pcp on this or she will call for a dermatolog y referral. [id number] Carolyn Allen CMA , [facility], OFFICE [address] [place] [phone] 05/25/2021 07:59:03 05/27/2021 14:59:06 Active or passive immunization [id number] Z23 [id number] Monse Mendiola MD Rheumat[facility] [address] [address] 08/27/2021 09:19:59 08/27/2021 11:46:26 Rheumatoid arthritis 11988992 M06.9 Sero positive, CCP + RA. On MTX. Good response to Enbrel, now off prednisone entirely. Continue Enbrel and mtx. Decrease methotrexa te to 10 mg weekly.Las t visit she went down for 15 to 12.5 and did not notice difference . Check labs for disease activity and medication toxicity (standing orders). Patient got COVID booster, flu shot and PCV-13. RTC in 4 months or sooner if needed. Long-term drug therapy [id number] Z79.899 On mtx and Enbrel. Monitor labs. Continue folic acid, leucovorin . Patient to hold mtx and enbrel if fever or any sign of infection. Patient needs a full skin exam, she will check with pcp on this or she will call for a dermatolog y referral. [id number] Monse Mendiola MD Rheumatol [place], [facility] [address] [place] [address] 12/20/2021 09:38:37 12/20/2021 13:33:30 Rheumatoid arthritis 27075830 M06.9 Sero positive, CCP + RA. On MTX. Good response to Enbrel, now off prednisone entirely. Continue Enbrel and mtx. Decrease methotrexa te to 7.5 mg weekly.Las t visit she went down for 12.5 to 1o and did not notice difference . Check labs for disease activity and medication toxicity (standing orders). Patient got COVID series (3 doses), flu shot and PCV-13 and Shngrix.Pa ashley ot get 4th dose of COVID vaccine, patient to hold methotrexa te one week after the dose.Incre ase folic acid to 3 tablets a day as it may help with the platelets. RTC in 4 months or sooner if needed. Long-term drug therapy [id number] Z79.899 On mtx and Enbrel. Monitor labs. Continue folic acid, leucovorin . Patient to hold mtx and enbrel if fever or any sign of infection. Patient had recently a full skin exam at her PCP's office, it was normal per the patient. [id number] DERRICK Espinoza , [facility], OFFICE [address] [place] [address] 12/10/2021 10:03:10 12/11/2021 09:07:39 Adult health examination 477244533 Z00.00 Counseling 834069922 Z71 .9 Depression screening 171 017511 Z13.31 depression screening tool administer ed, entered into emr, scored and discussed, time greater than 7.5 minutes Rheumatoid arthritis 698 30195 M06.9 On Methotrexa te and Enbrel, follows with [facility] rheumatolo gy Ex-smoker 5778342 Z87.89 1 LDCT chest 12/28/20- nml, no nodules. Pt declines annual repeat LDCT due to copay, would like to repeat every 2 years at this time Cat bite [id number] W55.0 1XD Pt bit by her own cat, went to , is on antibiotic s with improvemen t in symptoms, tetanus is UTD, cat is UTD on vaccines. Will contact the office for any worsening symptoms [id number] Monse Mendiola MD Rheumatol [place], [address] [address] 04/05/2022 10:30:41 04/05/2022 11:34:26 Rheumatoid arthritis 64749821 M06.9 Sero positive, CCP + RA. On MTX. Good response to Enbrel, now off prednisone entirely. Continue Enbrel and mtx 7.5 mg weekly.Las t visit she went down for 10 to 7.5 and did not notice difference . Check labs for disease activity and medication toxicity (standing orders). Patient got COVID series flu shot, PCV-13 and Shingrix.P atient ot get flu shot.COVID booster discussed, patient to hold methotrexa te one week after the dose. RTC in 4 months or sooner if needed. Long-term drug therapy 030024647 Z79.899 On mtx and Enbrel. Monitor labs. Continue folic acid, leucovorin . Patient had recently a full skin exam at her PCP's office, it was normal per the patient. Patient has had recurrent infections , after her cat biting her. She was extensivel y counselled that she is immunosupp ressed. She states that she has not been careful and she will be more careful. If any more infection, treatment should be reassessed . Patient understand s and will call office if any infection. Patient to hold mtx and enbrel if fever or any sign of infection. Anna mcnally reinforced , patient verbalizes understand ing. 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 not visually significan t. monitor annually. Presbyopia 56957942 H52. 4 Blepharitis 43634538 H01 .9 pt ed. recommend lid scrub qd, hot compress qd, AT 2-4 x per day prn. [id number] DERRICK Espinoza , [facility], OFFICE [address] [place] [address] 04/24/2023 09:50:27 04/26/2023 22:39:19 Adult health examination 124947016 Z00.00 Depression screening 171 380068 Z13.31 depression screening tool administer ed Screening for alcohol abuse 062289236 Z13.39 Alcohol use screening tool administer ed Screening for malignant neoplasm of colon 428923695 Z12.11 declines colo - will do stool kit Screening mammography 24 216925 Z12.31 Ex-smoker 0092896 Z87.89 1 LDCT chest 01/23/22, pt declines annual repeat LDCT due to copay, would like to repeat every 2 years at this time Active or passive immunization 875974087 Z23 flu - getting today Rheumatoid arthritis 698 80600 M06.9 On Methotrexa te and Enbrel, [place] [facility] Hyperlipidemia 18867601 E78.5 Mild, recommend dietary modificati on, reassess yearly [id number] Davida Chance, [facility], [facility] [address] [place] [address] 08/25/2023 13:03:22 08/26/2023 14:15:28 Nuclear senile cataract 134436680 H25.13 mild OD>OS, pt ed. not visually significan t. monitor annually. Presbyopia 88657521 H52. 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 baseline photo today. Macular drusen 035169587 H35.362 few OS, pt ed. Observe. monitor here annually. 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 Health Concerns Section Related Observation LastModified by Organization Detai ls LastModified Time None Recorded Concern Status LastModified by Organization Details LastModified Time None Recorded Advance Directives Directive N: Payers Encounter Date Sequence Insurance Name Policy Number Policy Bond Covered Member ID Bond Member ID Guarantor Name 12/20/2021 2 [facility]: [employer] 104 Vianey Shepard [id number] Vianey Shepard 12/20/2021 1 [place] [facility] Vianey Shepard [id number] Vianey Shepard 04/05/2022 2 [place] 104 Vianey Shepard [id number] Vianey Toddmaureen 04/05/2022 1 [place] [facility] Vianey Shepard [id number] 2 Vianey Shepard 06/14/2022 2 [place] 104 Vianey Shepard [id number] Vianey Toddmaureen 06/14/2022 1 [place] [facility] Vianey Shepard [id number] Vianey Shepard 04/24/2023 2 [place] [employer] 104 Vianey Shepard [id number] Vianey Toddmaureen 04/24/2023 1 [place] [facility] Vianey Shepard [id number] Vianey Shepard 08/25/2023 2 [facility] 104 Vianey Shepard [id number] Vianey Shepard 08/25/2023 1 [place] [facility] Vianey Shepard [id number] 2 Vianey Martínezvanesamaureen Notes Date Note Type Note Provider Name and Address Organization Details Recorded Time 12/20/2021 text/html Patient is 66 y old female following-up on rheumatoid arthritis. Patient has a history of seropositive rheumatoid arthritis diagnosed in 2018.Started MTX 03/27/18. Despite treatment remained symptomatic with swelling multiple joints. Added Enbrel 07/09/18. Reported dramatic improvement. Patient states that she is feeling good. She gets some stiffness in the morning , it goes away real quick. No pain , no swelling She is taking methotrexate 10 mg per week and weekly Enbrel, leucovorin and folic acid.She has not taken motrin for months.She did not notice any difference going down on the methotrexate.Patient is tolerating the medications, no side effects reported. Her bone graft for dental surgery is on hold (a dental implant broke).Waiting for her platelets to increase. 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 Labs reviewed. Sven Mendiola MD [address] [place], [phone], [facility] 12/20/2021 10:25:10 04/05/2022 text/html Patient is 66 y old female following-up on rheumatoid arthritis. Patient states that she is doing well. No pain, no swelling.Morning stiffness 20 minutes. She had a cat bite in December and it got infected.She got one dose of IM Rocephin and was put on amoxicillin.In January, she has an ingroin hair in her scalp, it was infected follicle and she was put on antibiotics.In February, his cat bit her again and it also became infected with pus. She went to urgent care and was put on amoxicillin. She is taking methotrexate 7.5 mg per week and weekly Enbrel, leucovorin and folic acid.She has not taken motrin for months.She did not notice any difference going down on the methotrexate.Patient is tolerating the medications, no side effects reported Her bone graft for dental surgery is still on hold (a dental implant broke).Waiting for her platelets to increase. Labs reviewed. Previous visit on 12/20/21:Patient is 66 y old female following-up on rheumatoid arthritis. Patient has a history of seropositive rheumatoid arthritis diagnosed in 2018.Started MTX 03/27/18. Despite treatment remained symptomatic with swelling multiple joints. Added Enbrel 07/09/18. Reported dramatic improvement. Patient states that she is feeling good. She gets some stiffness in the morning , it goes away real quick. No pain , no swelling She is taking methotrexate 10 mg per week and weekly Enbrel, leucovorin and folic acid.She has not taken motrin for months.She did not notice any difference going down on the methotrexate.Patient is tolerating the medications, no side effects reported. Her bone graft for dental surgery is on hold (a dental implant broke).Waiting for her platelets to increase. 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 Labs reviewed. Sven Mendiola MD [address] [place], [phone], [facility] 04/05/2022 11:27:53 06/14/2022 text/html CataractReported bypatient.Location:bi lateral Quality:painless Severity:mild Onset/Timing:gradualC omprehensive Eye ExamReported bypatient.Quality:1 year exam; no blurred vision Context:currently wears glasses Modifying factors:wears glasses for distance and near Associated Symptoms:no redness; no itching; no dryness;floaters tearing sometimes, once per week or less, OD. no eye pain. Davida Chance, OD [address] [place] [address], [phone], [facility] 06/14/2022 14:41:27 04/24/2023 text/html Risk Assessment and Lifestyle Change Counseling 65+ (Medicare)Reported bypatient.Coronary Artery Disease Risk Assessment:Family History of Coronary Artery Disease(mother- [place]); No personal history of diabetes; No history of peripheral vascular disease, AAA, or carotid disease; No personal history of coronary artery disease Breast Cancer Risk Assessment:No family history of breast cancer; No history of breast cancer or dcis Colon Cancer Risk Assessment:No family history of pre cancerous colon polyps or cancer Lung Cancer Risk Assessment:Has used cigarettes more than 30 pack-years;Former smoker Fracture Risk Assessment:No unexplained fracture; Has adequate calcium intake; Taking Vitamin D supplement; No chronic use of proton pump inhibitors Cognitive/Behavioral Risk Assessment:No personal history of mental illness; No family history of mental illness Safety Risk Assessment:Has grab bars in bathroom; Has rails on steps; No falls; No evidence of abuse/neglect Functional Status:Patient does not have trouble hearing the television or radio when others do not.; Patient does not have to strain or struggle to hear/understand conversations; Patient does not need help with preparing meals, transportation, shopping, taking medicine, managing finances, or other activities of daily living.; Patient does not have visual loss that interferes with daily activities;Lives alone; Patient reports no falls in the past 6 months. Diet:Counseled about eating a diet low in trans and saturated fats and high in fiber, fruits and vegetables; Counseled about appropriate calcium intake and good dietary sources of calcium.; Counseled about the importance of maintaining a positive calcium balance and taking 1000 iu Vitamin D daily.; Counseled about decreasing carbohydrates; Discussed the value of a Mediterranean diet , and eating more fruits and vegetables Exercise counseling:Discussed the importance of daily physical activity; Discussed the importance of weight bearing exercise 04/[birth year]/[age]yo female [place] - states has at home, will upload into [email or web address] mammo 05/14/21- nml, will repeat this yearLDCT chest 01/23/22- unchanged small nodules, recommended repeat annually but pt doesn't want to do so annually due to copay, will do so every other year (next year)IFOBT done 03/2021 was normalPt had ECHO and PFT done with applied researcher which were normalGoes to rheumatology for RA, taking Enbrel and Methotrexate.Has 40+ pack year history, has quit smokingHas not drank alcohol since starting MTXWorks as a [facility] DERRICK Espinoza [address] [place] [address], [phone], [facility] 04/24/2023 11:00:22 08/25/2023 text/html CataractReported bypatient.Location:bi lateral Quality:painless Severity:mild Onset/Timing:gradual Doing well, occasional watery OS. Davida Chance, VICKY [address] [place], [phone], [facility] 08/25/2023 16:10:57 OBGyn Episode No OBEpisode recorded.
[2024-08-27 12:20] LABS: MANUAL DIFF FLAG NO
[2024-08-27 12:37] LABS: Basophils Percent Auto 0.3 % (0-2); Eosinophils Absolute Auto 0.1 X10*3/uL (0.0-0.4); Eosinophils Percent Auto 0.7 % (0-4); Hematocrit 45.7 % (37.0-47.0); Hemoglobin 14.7 g/dl (12.0-16.0); Imm Gran Abs Auto 0.04 X10*3/uL (0.00-0.03); Imm Gran Pct Auto 0.4 % (0.0-0.4); Lymphocytes Absolute Auto 3.5 X10*3/uL (1.2-4.9); Lymphocytes Percent Auto 30.8 % (20-40); Mean Corpuscular HGB Conc 32.2 g/dl (31.0-35.0); Mean Corpuscular Hemoglobin 30.4 pg (27.0-33.0); Mean Corpuscular Volume 94.4 fL (80.0-98.0); Mean Platelet Volume 9.7 fL (9.4-12.3); Monocytes Absolute Auto 0.7 X10*3/uL (0.1-1.2); Monocytes Percent Auto 6.5 % (2-11); Neutrophils Percent Auto 61.3 % (45-73); Platelet Count 287 X10*3/uL (160-400); Red Blood Count 4.84 X10*6/uL (4.20-5.50); White Blood Count 11.4 X10*3/uL (4.8-10.8)
[2024-08-27 12:49] LABS: Alanine Aminotransferase 32 U/L (0-31); Albumin Level 3.9 g/dL (3.5-5.0); Alkaline Phosphatase 72 U/L (39-117); Anion Gap 11 (12-20); Aspartate Amino Transferase 34 U/L (5-31); Bilirubin Total 0.6 mg/dL (0.0-1.0); Blood Urea Nitrogen 17 mg/dL (9-16); C Reactive Protein 0.53 mg/dL (< or = 0.50); Calcium 10.3 mg/dL (8.4-10.2); Carbon Dioxide 29 mmol/L (22-29); Chloride 104 mmol/L (96-108); Estimated Glomerular Filt Rate > 60; Glucose Random 124 mg/dL (60-115); Potassium 3.9 mmol/L (3.3-5.1); Sodium 140 mmol/L (135-145); Total Protein 7.7 g/dL (6.5-8.0)
[2024-08-27 13:13] LABS: Erythrocyte Sedimentation Rate 27 MM/HR (0-20)
== END 2024-08-27 09:05 | disposition home or self-care (01) ==
LOC: HO.WFDLDS 09:04
PROVIDERS: Visit Provider Student in an Organized Health Care Education/Training Program
DX: M06.09 Rheumatoid arthritis without rheumatoid factor, multiple sites (principal); Z79.631 Long term (current) use of antimetabolite agent
CPT/HCPCS: 36415; 80053; 85025; 85652; 86140

== ENCOUNTER 2024-10-21 10:46 | Outpatient (REF) | payer MEDICARE, BC, SELFPAY ==
[2024-10-21 14:42] LABS: Alanine Aminotransferase 23 U/L (0-31); Albumin Level 3.8 g/dL (3.5-5.0); Alkaline Phosphatase 77 U/L (39-117); Anion Gap 11 (12-20); Aspartate Amino Transferase 25 U/L (5-31); Bilirubin Total 0.7 mg/dL (0.0-1.0); Blood Urea Nitrogen 18 mg/dL (9-16); Calcium 9.6 mg/dL (8.4-10.2); Carbon Dioxide 27 mmol/L (22-29); Chloride 110 mmol/L (96-108); Estimated Glomerular Filt Rate > 60; Glucose Random 100 mg/dL (60-115); Potassium 3.8 mmol/L (3.3-5.1); Sodium 144 mmol/L (135-145); Total Protein 6.9 g/dL (6.5-8.0)
[2024-10-21 14:45] LABS: Parathyroid Hormone Intact 52.1 pg/mL (8.7-77.1)
[2024-10-22 14:33] LABS: Calcium, Ionized 5.3 mg/dL (4.7-5.5)
== END 2024-10-21 10:47 | disposition home or self-care (01) ==
LOC: HO.WFDLDS 10:46
PROVIDERS: Visit Provider Student in an Organized Health Care Education/Training Program
DX: R74.01 Elevation of levels of liver transaminase levels (principal); E83.52 Hypercalcemia
CPT/HCPCS: 36415; 80053; 82330; 83970

== ENCOUNTER 2024-12-31 08:30 | Outpatient (REF) | payer MEDICARE, BC, SELFPAY ==
--- OUTSIDE RECORDS SUMMARY | 2024-12-31 08:41 | XMS_ITS | Data Portability ---
Author Organization [facility], FORMERLY [facility] Address [address] [place] [address] Care Team Providers Care Compensation/Benefits Specialist Name Role Phone AMANDA PEREZ Primary Care Provider [facility] RHEUMATOLOGY Rheumatologi st Assessment Encounter Date [...] order through -IFOBT order set. 2022 023 [facility], [address] [place], [address], 12:25:58 Referral None recorded. Procedures None recorded. Surgeries None recorded. Imaging MAMMO, screening, tomosynthes is, bilateral - Note to Provider: Diag Mammo/US Breast/Guid ed Asp/Breast Bx as clinically indicated 2022 023 [facility] (Imaging), [address], [place], [address], 3 15:33:19 Medication Orders methotrexat e sodium 2.5 mg tablet 2021 022 [id number], [address] [place], [address], 10:25:00 leucovorin calcium 5 mg tablet 2021 022 [id number], [address] [place], [address], 10:25:00 Patient TargetsNo targets recorded. Patient Instructions Encounter Date Encounter Id Patient Instructions Last Modified By Organization Details Last Modified Time 04/24/2023 [id number] advance directives: care instructions Not available 04/24/2023 [...] K/? ? ?L 3.98-1 0.04 Not Available [address], [address], 12/06/2021 09:19:12 12/07/19 22 12/06/2021 CBC RBC 4.48 M/? ? ?L 3.93-5 .22 Not Available [address], [address], 12/06/2021 09:19:12 12/07/1912/06/2021 CBC HGB 14.0 g/dL 11.2-1 5.7 Not Available [address], [address], 12/06/2021 09:19:12 12/07/1912/06/2021 CBC HCT 43.7 % 34.1-4 4.9 Not Available [address], [address], 12/06/2021 09:19:12 12/07/19 22 12/06/2021 CBC MCV 97.5 fL 79.4-9 4.8 high Not Available [address], [address], 12/06/2021 09:19:12 12/07/19 22 12/06/2021 CBC MCH 31.3 pg 25.6-3 2.2 Not Available [address], [address], 12/06/2021 09:19:12 12/07/19 22 12/06/2021 CBC MCHC 32.0 g/dL 32.2-3 5.5 low Not Available [address], [address], 12/06/2021 09:19:12 12/07/19 22 12/06/2021 CBC plt 177 K/? ? ?L 182-36 9 low Not Available [address], [address], 12/06/2021 09:19:12 12/07/19 22 12/06/2021 CBC MPV 10.2 fL 9.4-12 .3 Not Available [address], [address], 12/06/2021 09:19:12 12/07/19 22 12/06/2021 CBC neut% 33.2 % 34.0-7 1.1 low Not Available [address], [address], 12/06/2021 09:19:12 12/07/19 22 12/06/2021 CBC neut# 1.55 1.56-6 .13 low Not Available [address], [address], 12/06/2021 09:19:12 12/07/19 22 12/06/2021 CBC lymph % 48.3 % 19.3-5 1.7 Not Available [address], [address], 12/06/2021 09:19:12 12/07/19 22 12/06/2021 CBC lymph # 2.26 K/? ? ?L 1.18-3 .74 Not Available [address], [address], 12/06/2021 09:19:12 12/07/19 22 12/06/2021 CBC mono% 14.7 % 4.7-12 .5 high Not Available [address], [address], 12/06/2021 09:19:12 12/07/19 22 12/06/2021 CBC mono# 0.69 0.24-0 .56 high Not Available [address], [address], 12/06/2021 09:19:12 12/07/19 22 12/06/2021 CBC eo% 3.2 % 0.7-5. 8 Not Available [address], [address], 12/06/2021 09:19:12 12/07/19 22 12/06/2021 CBC eo# 0.15 0.04-0 .36 Not Available [address], [address], 12/06/2021 09:19:12 12/07/19 22 12/06/2021 CBC baso% 0.4 % 0.1-1. 2 Not Available [address], [address], 12/06/2021 09:19:12 12/07/19 22 12/06/2021 CBC baso# 0.02 0.00-0 .08 Not Available [address], [address], 12/06/2021 09:19:12 12/07/19 22 12/06/2021 CBC RDW-CV 15.3 % 11.7-1 4.4 high Not Available [address], [address], 12/06/2021 09:19:12 12/07/19 22 12/06/2021 CBC Ig% 0.200 % 0.000- 1.500 Ig % >0.5 Indic ates possi ble Left Shift Not Available [address], [address], 12/06/2021 09:19:12 12/07/19 22 12/06/2021 CBC Ig# 0.010 0.000- 0.093 Not Available [address], [address], 12/06/2021 09:19:12 12/07/19 22 12/06/2021 CBC NRBC% 0.0 % 0.0-0. 2 Not Available [address], [address], 12/06/2021 09:19:12 12/07/19 22 12/06/2021 CBC NRBC# 0.000 0.000- 0.012 Not Available [address], [address], 12/06/2021 09:19:12 12/07/19 22 12/06/2021 ESR sed rate 14.0 0.0-15 .0 Not Available [address], [address], 12/06/2021 10:47:26 12/07/19 22 12/06/2021 COMP. METAB OLIC PANEL glucose 96 mg/dL 70-100 Not Available [address], [address], 12/06/2021 17:34:26 12/07/19 22 12/06/2021 COMP. METAB OLIC PANEL BUN 17 mg/dL 7-18 Not Available [address], [address], 12/06/2021 17:34:26 12/07/19 22 12/06/2021 COMP. METAB OLIC PANEL creatinine 0.8 mg/dL 0.8-1. 3 Not Available [address], [address], 12/06/2021 17:34:26 12/07/19 22 12/06/2021 COMP. METAB OLIC PANEL B/C 21.3 ratio Not Available [address], [address], 12/06/2021 17:34:26 12/07/19 22 12/06/2021 COMP. METAB [...] be used in pregn gloria. Not Available [address], [address], 12/06/2021 17:34:26 12/07/19 22 12/06/2021 COMP. METAB OLIC PANEL sodium 140 mmol/ L 136-14 5 Not Available [address], [address], 12/06/2021 17:34:26 12/07/19 22 12/06/2021 COMP. METAB OLIC PANEL potassium 4.6 mmol/ L 3.5-5. 1 Not Available [address], [address], 12/06/2021 17:34:26 12/07/19 22 12/06/2021 COMP. METAB OLIC PANEL chloride 105 mmol/ L 96-107 Not Available [address], [address], 12/06/2021 17:34:26 12/07/19 22 12/06/2021 COMP. METAB OLIC PANEL anion gap 5.4 5.0-15 .0 Not Available [address], [address], 12/06/2021 17:34:26 12/07/19 22 12/06/2021 COMP. METAB OLIC PANEL CO2 30 mmol/ L 21-32 Not Available [address], [address], 12/06/2021 17:34:26 12/07/19 22 12/06/2021 COMP. METAB OLIC PANEL calcium 8.9 mg/dL 8.5-10 .3 Not Available [address], [address], 12/06/2021 17:34:26 12/07/19 22 12/06/2021 COMP. METAB OLIC PANEL total protein 7.0 g/dL 6.4-8. 2 Not Available [address], [address], 12/06/2021 17:34:26 12/07/19 22 12/06/2021 COMP. METAB OLIC PANEL albumin 3.7 g/dL 3.4-5. 0 Not Available [address], [address], 12/06/2021 17:34:26 12/07/19 22 12/06/2021 COMP. METAB OLIC PANEL globulin 3.3 g/dL Not Available [address], [address], 12/06/2021 17:34:26 12/07/19 22 12/06/2021 COMP. METAB OLIC PANEL A/G 1.1 ratio 0.8-2. 0 Not Available [address], [address], 12/06/2021 17:34:26 12/07/19 22 12/06/2021 COMP. METAB OLIC PANEL total bilirubin 0.70 mg/dL 0.00-1 .00 Not Available [address], [address], 12/06/2021 17:34:26 12/07/19 22 12/06/2021 COMP. METAB OLIC PANEL AST 22 U/L 0-37 Not Available [address], [address], 12/06/2021 17:34:26 12/07/19 22 12/06/2021 COMP. METAB OLIC PANEL ALT 30 U/L 6-63 Not Available [address], [address], 12/06/2021 17:34:26 12/07/19 22 12/06/2021 COMP. METAB OLIC PANEL alk. phos. 63 U/L 50-136 Not Available [address], [address], 12/06/2021 17:34:26 12/07/19 22 12/06/2021 C-ELOISA CTIVE PROTE IN-QU ANTIT ATIVE C-reactive protein -quant <2.0 mg/L 0.0-9. 0 < crp verif ied, cmd Not Available [address], [address], 12/06/2021 18:26:14 03/07/20 22 03/07/2022 WOUND CULTU RE/SM EAR special requests None Not Available [facility] ([facility]) [address] [place], [address], 03/09/2022 11:03:10 03/07/20 22 03/08/2022 WOUND CULTU RE/SM EAR gram stain NO ORGANI SMS SEEN Not Available [facility] (Outpatient) [address] [place], [address], 03/09/2022 11:03:10 03/07/20 22 03/09/2022 WOUND CULTU RE/SM EAR wound culture/smea r PASTEU RELLA MULTOC TOMY abnormal Not Available [facility] (Outpatient) [address] [place], [address], 03/09/2022 11:03:10 03/07/20 22 03/09/2022 WOUND CULTU RE/SM EAR cefazolin <=4 susceptib le Not Available [facility] (Outpatient) [address] [place], [address], 03/09/2022 11:03:10 03/07/20 22 03/09/2022 WOUND CULTU RE/SM EAR ceftazidime 4 susceptib le Not Available [facility] (Outpatient) [address] [place], [address], 03/09/2022 11:03:10 03/14/20 22 03/14/2022 CBC WBC 5.96 K/? ? ?L 3.98-1 0.04 Not Available [address], [address], 03/14/2022 10:41:20 03/14/20 22 03/14/2022 CBC RBC 4.78 M/? ? ?L 3.93-5 .22 Not Available [address], [address], 03/14/2022 10:41:20 03/14/20 22 03/14/2022 CBC HGB 14.5 g/dL 11.2-1 5.7 Not Available [address], [address], 03/14/2022 10:41:20 03/14/20 22 03/14/2022 CBC HCT 45.5 % 34.1-4 4.9 high Not Available [address], [address], 03/14/2022 10:41:20 03/14/20 22 03/14/2022 CBC MCV 95.2 fL 79.4-9 4.8 high Not Available [address], [address], 03/14/2022 10:41:20 03/14/20 22 03/14/2022 CBC MCH 30.3 pg 25.6-3 2.2 Not Available [address], [address], 03/14/2022 10:41:20 03/14/20 22 03/14/2022 CBC MCHC 31.9 g/dL 32.2-3 5.5 low Not Available [address], [address], 03/14/2022 10:41:20 03/14/20 22 03/14/2022 CBC plt 164 K/? ? ?L 182-36 9 low Not Available [address], [address], 03/14/2022 10:41:20 03/14/20 22 03/14/2022 CBC MPV 9.9 fL 9.4-12 .3 Not Available [address], [address], 03/14/2022 10:41:20 03/14/20 22 03/14/2022 CBC neut% 33.4 % 34.0-7 1.1 low Not Available [address], [address], 03/14/2022 10:41:20 03/14/20 22 03/14/2022 CBC neut# 1.99 1.56-6 .13 Not Available [address], [address], 03/14/2022 10:41:20 03/14/20 22 03/14/2022 CBC lymph % 45.6 % 19.3-5 1.7 Not Available [address], [address], 03/14/2022 10:41:20 03/14/20 22 03/14/2022 CBC lymph # 2.72 K/? ? ?L 1.18-3 .74 Not Available [address], [address], 03/14/2022 10:41:20 03/14/20 22 03/14/2022 CBC mono% 17.8 % 4.7-12 .5 high SREV= Slide revie [facility]. Not Available [address], [address], 03/14/2022 10:41:20 03/14/20 22 03/14/2022 CBC mono# 1.06 0.24-0 .56 high Not Available [address], [address], 03/14/2022 10:41:20 03/14/20 22 03/14/2022 CBC eo% 2.7 % 0.7-5. 8 Not Available [address], [address], 03/14/2022 10:41:20 03/14/20 22 03/14/2022 CBC eo# 0.16 0.04-0 .36 Not Available [address], [address], 03/14/2022 10:41:20 03/14/20 22 03/14/2022 CBC baso% 0.3 % 0.1-1. 2 Not Available [address], [address], 03/14/2022 10:41:20 03/14/20 22 03/14/2022 CBC baso# 0.02 0.00-0 .08 Not Available [address], [address], 03/14/2022 10:41:20 03/14/20 22 03/14/2022 CBC RDW-CV 14.5 % 11.7-1 4.4 high Not Available [address], [address], 03/14/2022 10:41:20 03/14/20 22 03/14/2022 CBC Ig% 0.200 % 0.000- 1.500 Ig % >0.5 Indic ates possi ble Left Shift Not Available [address], [address], 03/14/2022 10:41:20 03/14/20 22 03/14/2022 CBC Ig# 0.010 0.000- 0.093 Not Available [address], [address], 03/14/2022 10:41:20 03/14/20 22 03/14/2022 CBC NRBC% 0.0 % 0.0-0. 2 Not Available [address], [address], 03/14/2022 10:41:20 03/14/20 22 03/14/2022 CBC NRBC# 0.000 0.000- 0.012 Not Available [address], [address], 03/14/2022 10:41:20 03/14/20 22 03/14/2022 ESR sed rate 18.0 0.0-15 .0 high Not Available [address], [address], 03/14/2022 10:58:06 03/14/20 22 03/14/2022 COMP. METAB OLIC PANEL glucose 92 mg/dL 70-100 Not Available [address], [address], 03/14/2022 12:47:50 03/14/20 22 03/14/2022 COMP. METAB OLIC PANEL BUN 19 mg/dL 7-18 high Not Available [address], [address], 03/14/2022 12:47:50 03/14/20 22 03/14/2022 COMP. METAB OLIC PANEL creatinine 0.9 mg/dL 0.8-1. 3 Not Available [address], [address], 03/14/2022 12:47:50 03/14/20 22 03/14/2022 COMP. METAB OLIC PANEL B/C 21.1 ratio Not Available [address], [address], 03/14/2022 12:47:50 03/14/20 22 03/14/2022 COMP. METAB [...] be used in pregn gloria. Not Available [address], [address], 03/14/2022 12:47:50 03/14/20 22 03/14/2022 COMP. METAB OLIC PANEL sodium 142 mmol/ L 136-14 5 Not Available [address], [address], 03/14/2022 12:47:50 03/14/20 22 03/14/2022 COMP. METAB OLIC PANEL potassium 4.3 mmol/ L 3.5-5. 1 Not Available [address], [address], 03/14/2022 12:47:50 03/14/20 22 03/14/2022 COMP. METAB OLIC PANEL chloride 105 mmol/ L 96-107 Not Available [address], [address], 03/14/2022 12:47:50 03/14/20 22 03/14/2022 COMP. METAB OLIC PANEL anion gap 8.5 5.0-15 .0 Not Available [address], [address], 03/14/2022 12:47:50 03/14/20 22 03/14/2022 COMP. METAB OLIC PANEL CO2 29 mmol/ L 21-32 Not Available [address], [address], 03/14/2022 12:47:50 03/14/20 22 03/14/2022 COMP. METAB OLIC PANEL calcium 8.4 mg/dL 8.5-10 .3 low Not Available [address], [address], 03/14/2022 12:47:50 03/14/20 22 03/14/2022 COMP. METAB OLIC PANEL total protein 6.9 g/dL 6.4-8. 2 Not Available [address], [address], 03/14/2022 12:47:50 03/14/20 22 03/14/2022 COMP. METAB OLIC PANEL albumin 3.4 g/dL 3.4-5. 0 Not Available [address], [address], 03/14/2022 12:47:50 03/14/20 22 03/14/2022 COMP. METAB OLIC PANEL globulin 3.5 g/dL Not Available [address], [address], 03/14/2022 12:47:50 03/14/20 22 03/14/2022 COMP. METAB OLIC PANEL A/G 1.0 ratio 0.8-2. 0 Not Available [address], [address], 03/14/2022 12:47:50 03/14/20 22 03/14/2022 COMP. METAB OLIC PANEL total bilirubin 0.50 mg/dL 0.00-1 .00 Not Available [address], [address], 03/14/2022 12:47:50 03/14/20 22 03/14/2022 COMP. METAB OLIC PANEL AST 20 U/L 0-37 Not Available [address], [address], 03/14/2022 12:47:50 03/14/20 22 03/14/2022 COMP. METAB OLIC PANEL ALT 22 U/L 6-63 Not Available [address], [address], 03/14/2022 12:47:50 03/14/20 22 03/14/2022 COMP. METAB OLIC PANEL alk. phos. 70 U/L 50-136 Not Available [address], [address], 03/14/2022 12:47:50 03/14/20 22 03/14/2022 C-ELOISA CTIVE PROTE IN-QU ANTIT ATIVE C-reactive protein -quant 7.7 mg/L 0.0-9. 0 Not Available [address], [address], 03/14/2022 12:47:51 04/17/20 23 04/17/2023 LIPID PANEL cholesterol 245 mg/dL <200 mg/dl Tobias able 200-2 39 mg/dl Borde rline High >240 mg/dl High Not Available [address], [address], 04/17/2023 11:35:05 04/17/20 23 04/17/2023 LIPID PANEL triglyceride s 144 mg/dL <150 mg/dL Jeaneth l 150-1 99 mg/dL Borde rline High 200-4 99 mg/dL High >500 mg/dL Very High Not Available [address], [address], 04/17/2023 11:35:05 04/17/20 23 04/17/2023 LIPID PANEL direct HDL 63 mg/dL <40 mg/dl - Major Risk for CHD >60 mg/dl - Negat lorraine Risk for CHD Not Available [address], [address], 04/17/2023 11:35:05 04/17/20 23 04/17/2023 LDL - [...] r is not neces danial. Not Available [address], [address], 04/17/2023 11:35:06 10/20/19 24 10/21/2023 IMMUN OCHEM ICAL FECAL OCCUL T BLOOD ifobt NEGATI VE negati ve Not Available [address], [address], 10/21/2023 12:25:58 01/24/20 22 01/23/2022 CT, chest No observ ation record ed. [facility] [address] [facility], [place], [address], 01/23/2022 18:15:12 04/24/20 23 12/16/2022 trans -thor [...] 03:32: 35 PM Lucy townsend: Karlee Magallanes [facility] (Imaging) [address] [place], [address], 05/02/2023 08:17:17 Result Notes None recorded. Problems Name Problem SNOMED Code Status Onset Date Resolution Date Notes Provider Name and Address Organization Details Recorded Time Abnormal findings on diagnost ic imaging of breast 910639737 Completed 12/11/2021 GUANAKO Espinoza [address] [place], [place] [address], [address], [facility] 2 08:07:32 Mammogra phy abnormal [id number] Completed 12/11/2021 GUANAKO Espinoza [address] [place], [place] [address], [address], [facility] 2 08:12:14 Rheumato id arthriti s 62011169 Active 2017 [facility] GUANAKO Espinoza [address] [place], [place] [address], [address], [facility] 3 15:48:59 Long-ter m drug therapy Active 2017 GUANAKO Espinoza [address] [place], [place] [address], [address], [facility] 2 08:12:05 Reactive depressi on (situati onal) 45376661 Active 2017 treated in the . 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 Procedures Surgical History Date Name Laterality Status Provider Name and Address Organization Details Recorded Time 08/25/19 24 Fundus Photography completed Davida Chance, OD [address] [place] [address], [phone], [facility] 08/25/2023 16:05:56 08/25/19 24 Refraction completed Davida Chacne, OD [address] [place], [address], [facility] 08/25/2023 16:05:18 04/24/20 23 Medicare Wellness Visit completed Alaina Molina [facility] 04/24/2023 09:36:14 06/14/20 22 Refraction completed Davida Chance, OD [address] [place], [address], [facility] 06/14/2022 10:35:11 12/11/19 22 Medicare Wellness Visit completed Alda V[facility] 12/07/2021 16:19:14 02/15/20 21 Refraction completed Davida Chance, OD [address] [place], [address], [facility] 02/14/2021 09:32:46 12/08/19 21 Medicare Wellness Visit completed Ashley Nicholson CMA [facility] 12/05/2020 13:50:19 12/08/19 21 Advanced Care Planning completed GUANAKO Espinoza [address] [place], [address], [facility] 12/07/2020 10:24:47 10/28/19 19 Knee (Left) Injection completed Aguila Ferreira MD [address] [place], [address], [facility] 10/28/2018 08:19:53 03/13/20 18 Smoking cessation counseling completed [facility] 03/13/2018 16:18:04 03/13/20 18 Carbon Monoxide Testing completed [facility] 03/13/2018 16:18:04 07/28/18 59 Remove tonsils and adenoids completed Selene Sun PA-C [address] [place] [address], [address], [facility] 05/11/2018 11:33:45 Tooth root removal completed Selene Sun PA-C [address] [place] [address], [address], [facility] 05/11/2018 11:34:02 Imaging Results None recorded. Procedure Notes None recorded. Medical Equipment None [...] 0 Not Available Not Available Not Available [facility] COVID-19 Vaccine (PF) 30 mcg/0.3 mL IM susp (purple) PHARMACY ADMINIST ERED 12/07 completed Not Available Not Available Not Available Vitals Date Recorded Body height Body mass index (BMI) Body weight Heart rate Systolic blood pressure Diastolic blood pressure Provider Name and Address Organization Details Last Updated DateTime 2 176.53 cm 30.3 kg/m2 97783.2 1 g 82 /min 122 mm[Hg] 80 mm[Hg] Griselda Guerrero LPN [facility] 2 09:49:07 Date Recorded Body height Body mass index (BMI) Body weight Heart rate Systolic blood pressure Diastolic blood pressure Provider Name and Address Organization Details Last Updated DateTime 2 176.53 cm 30.5 kg/m2 18279.6 8 g 61 /min 132 mm[Hg] 80 mm[Hg] Griselda Guerrero LPN [facility] 2 10:38:29 Date Recorded Body weight Body mass index (BMI) Body height Heart rate Systolic blood pressure Diastolic blood pressure Provider Name and Address Organization Details Last Updated DateTime 3 89598.0 2 g 30.2 kg/m2 176.53 cm 60 /min 130 mm[Hg] 76 mm[Hg] Alaina burger MA [facility] 3 10:26:11 Social History Question Answer Notes LastModified by Organizat ion Details LastModified Time Tobacco Smoking Status Former [facility] Feb, 2018[facility] 09:11:59 Do You Have An Advance Directive? No Information not available 09/03/2011 What Is Your Level Of Caffeine Consumption? Heavy [email or web address] Information not available 03/13/2018 What Type Of Diet Are You Following? REGULAR Information not available 09/03/2011 Which Illicit Or Recreational Drugs Have You Used? 0 Information not available 05/11/2018 Education 2 Year College Information not available 03/13/2018 When Did You Quit Smoking? 1-5yearssin [email or web address] Information not available 05/11/2018 How Many Days In The Past Year Have You Had A Heavy Drinking Consumption (4+ Female, 5+ Male)? 0 Information not available 05/11/2018 Are There Any Guns Present In Your Home? No [email or web address] Information not available 03/13/2018 Live Alone Or With Others? Alone Information not available 09/03/2011 Patient Has Health Care Proxy Signed And In Chart No Information not available 09/03/2011 CCM Consent Discussion 11/09/2018 [email or web address] Information not available 11/10/2018 Marital Status Single Informatio n not available 09/03/2011 Mosquito Repellent Used Routinely Yes [email or web address] Information not available 03/13/2018 What Was The Date Of Your Most Recent Tobacco Screening? 04/24/2023 [email or web address] Information not available 04/24/2023 How Many Children Do You Have? 0 Information not available 09/03/2011 What Is Your Current Pack Years? 30ormorepac kyears 40+ Years, 1 Ppd Information not available 05/11/2018 Seat Belts Used Routinely Yes [email or web address] Information not available 03/13/2018 Are You Sexually Active? No Not Since 2000 Information not available 09/03/2011 Smoke Alarm In Home Yes Information not available 03/13/2018 At What Age Did You Start Smoking Tobacco? 1976 Information not available 09/03/2011 General Stress Level Low [email or web address] Information not available 03/13/2018 Do You Use Sunscreen Routinely? Yes [email or web address] Information not available 03/13/2018 Sex: Unknown Functional Status Question Answer Note LastModified by Organizat ion Details LastModified Time What is your level of alcohol consumption? None stopped 02/2018 [email or web address] Information not available 04/04/2020 Do you or have you ever used smokeless tobacco? 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 Never used electronic cigarettes Information not available 12/05/2020 Mental Status None recorded. Family History Relationship Description Onset Age of this Age Resolved Age Notes LastModified by Organization Details LastModified Time Mother Diabetes mellitus previo usly record ed as Diabet es [id number] Not available 03/08/2013 03:01:15 Mother Hypertensive disorder [email or web address] Not available 2017 11:34:34 Mother Myocardial infarction [email or web address] Not available 05/11 11:34:56 Mother Heart disease [email or web address] Not available 2017 11:35:17 Father Rheumatoid arthritis [email or web address] Not available 2017 08:53:48 Medical History Condition Response INFECTIOUS DISEASE RENAL / GENITOURINARY Y GERD Y Rheumatoid Arthritis Y Gynecological HistoryNo gynecological history recorded. Obstetrics History GPAL:G 0 P 0 0 0 0 Immunizations Vaccine Type Date Status Note Provider Nam e and Address Organization Details Recorded Time Tdap 8 completed Not Available [facility] 08/14/2019 02:30:32 Influenza, split virus, quadrivalent, PF 8 completed Not Available [facility] 08/14/2019 02:33:43 Pneumococcal conjugate PCV 13 9 completed Not Available [facility] 08/14/2019 02:30:33 Influenza, high-dose, trivalent, PF 9 completed Not Available [facility] 08/14/2019 02:24:37 Influenza, high-dose, quadrivalent, PF 0 completed Sandra Barnett null, [facility] 05/20/2020 11:25:10 Influenza, high-dose, quadrivalent, PF 1 completed [facility] 05/25[facility]2021 08:50:21 SARS-COV-2 (COVID-19) vaccine, UNSPECIFIED 0 completed Sarah Coy LPN null, [facility] 08/18/2020 09:16:13 SARS-COV-2 (COVID-19) vaccine, UNSPECIFIED 1 completed Sarah Coy LPN null, [facility] 08/18/2020 09:16:44 zoster recombinant 0 completed Nupur Gunn RMA null, [facility] 12/07/2020 09:22:18 zoster recombinant 0 completed NEDRA Crespo null, [facility] 12/07/2020 09:22:28 Influenza, high-dose, quadrivalent, PF 3 completed GUANAKO Espinoza [address] [place] [address], [id number], [facility] 04/24/2023 10:37:27 COVID-19, mRNA, LNP-S, PF, 30 mcg/0.3 mL dose 2 completed Griselda Guerrero LPN null, [facility] 04/05/2022 10:37:02 Influenza, high-dose, quadrivalent, PF 2 completed Griselda Guerrero LPN [facility] 2022 14:07:20 Past Encounters Encounter ID Performer Location Encounter Start Date Encounter Closed Date Diagnosis/Indication Diagnosis SNOMED-CT Code Diagnosis ICD10 Code Diagnosis Note [id number] Jenny Estevez MD , [facility], OFFICE [address] [place] [phone] 09/03/2011 08:49:48 09/03/2011 10:19:07 [id number] [facility] MAMMO TECH Radiology , [address] [address] 09/12/2011 13:29:11 09/17/2011 14:45:53 [id number] [facility] MAMMO [facility] Radiology , [address] [address] 09/20/2011 11:22:03 09/24/2011 11:43:28 [id number] [facility] 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 Wanting to quit. Active or passive immunization 901426173 Z23 Swelling of hand 8869073 03 R22.33 [id number] Aguila Ferreira MD Rheumatol y, [facility] [address] [place] [address] 03/27/2018 13:53:45 03/27/2018 16:43:37 Rheumatoid arthritis 27492063 M06.9 Highly likely Sero positive RA. Symptoms [...] calcium, vit D while on prednisone . [id number] Aguila Ferreira MD Rheumatol [facility], [facility] [address] [place] [address] 05/04/2018 09:40:17 05/05/2018 07:08:57 Rheumatoid arthritis 87816825 M05.69 Sero positive, CCP + RA. There [...] Follow up 6 weeks. 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 [id number] Amanda Walsh , [facility], OFFICE [address] [place] [address] 05/11/2018 11:05:39 05/11/2018 12:39:20 Adult health examination 191354622 Z00.00 see Risk Assessment and Lifestyle Change Counseling section above Depression screening 171 421027 Z13.89 depression screening tool administer ed, entered into emr, scored and discussed, time greater than 7.5 minutes Rheumatoid arthritis 698 63323 M06.9 Continue care plan per rheum Screening for malignant neoplasm of cervix 789033285 Z12.4 Ex-smoker 2862287 Z87.89 1 Screening for malignant neoplasm of colon 579168710 Z12.11 Hyperglycemia 89936610 R 73.9 Non fasting glucose elevated. Will check fasting glucose. Overweight 307908792 E66 .3 Elevated blood-pressure reading without diagnosis of hypertension 710272134 R03.0 Monitor BP at home. If consistent ly >130/80, come back for BP recheck sooner than 6 months. Active or passive immunization 806528680 Z23 Vaginal mass 001522020 N 89.8 Pt co-evaluat ed with Dr. Walsh. Will check transvagin al ultrasound for further characteri zation of mass. At this point concern for malignancy is low as it has been present for at least 10 years and per pt has remained unchanged. [id number] Aguila Ferreira MD Rheumatol [address] [place] [address] 06/16/2018 09:42:04 06/17/2018 07:10:06 Rheumatoid arthritis 43134925 M05.69 Sero positive, CCP + RA. There [...] up 6 weeks. Menopausal and postmenopausal disorders 639177945 N95.9 psot menopausal , on steroids. Also RA. Risk for osteoprosi s. Check scan.Calci um and vit D supplement s. Long-term drug therapy 843716545 Z79.899 On assisted MTX; Needs lab monitoring ; Check CBC, LFT's, creat [id number] Aguila Ferreira MD Rheumatol [place], [address] [place] [address] 07/09/2018 10:38:47 07/10/2018 07:02:53 Rheumatoid arthritis 45275752 M05.69 Sero positive, CCP + RA. There has been substantia l improvemen t on current prednisone 10 + MTX 20 . However, even on the 10 mg/d prednisone , there is still obvious active synovitis. Starting Enbrel today. Continue MTX. Up to date on labs. Cont pred 10/d for now, but expect to taper at next visit.BMD pending. Follow up 6 weeks. [id number] Aguila Ferreira MD Rheumatol [facility], [address] [place] [address] 08/11/2018 08:42:56 08/13/2018 14:53:38 Rheumatoid arthritis 78436778 M05.69 Sero positive, CCP + RA. Excellent early response to Enbrel (started 5 weeks ago).Expec t to see further improvemen t. Continue EnbrelCont MTX 20 mg/wk.May try slow taper of prednisone : 5 mg 3 weeks, 4 mg 3 weeks etc. f/u 3 mo, sooner if needed. Bilateral knee pain 1187 061496 2678870 M25.561 M25.562 Bilat knee involvemen t with RA.Some improvemen t with Enbrel, but persisting swelling. If still symptomati c at next visit will check x ray and will advise local injeciton. Long-term drug therapy 851601206 Z79.899 On assisted MTX; Needs lab monitoring ; Check CBC, LFT's, creat [id number] Aguila Ferreira MD Rheumatol [facility], [address] [address] 10/27/2018 10:02:56 10/27/2018 11:01:35 Rheumatoid arthritis 52528236 M05.69 Sero positive, CCP + RA.Good response to Enbrel. Still synovitis both knees. May see further improvemen t. Continue EnbrelCont MTX 20 mg/wk.May continue slow taper of prednisone : 3 mg Knee joint effusion 2022 87491 M25.462 Inflammato ry effusion bilat l > R. Local inj today on L. Return 2 weeks for R injection. Long-term drug therapy 620024545 Z79.899 On assisted MTX; Needs lab monitoring ; Check CBC, LFT's, creat [id number] Amanda Walsh , [facility], OFFICE [address] [place] [address] 11/09/2018 11:18:43 11/09/2018 14:10:39 Rheumatoid arthritis 58059909 M06.9 Continue care plan per rheum. Return in 6 months for wellness visit or sooner as needed. Active or passive immunization 676979628 Z23 [id number] Aguila Ferreira MD Rheumatol [facility], [address] [address] 11/16/2018 10:54:20 11/17/2018 14:13:01 Rheumatoid arthritis 33375021 M05.69 Sero positive, CCP + RA.Good response [...] me know.RV in January. 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 [id number] Aguila Ferreira MD Rheumatol [facility], [address] [place] [address] 01/26/2019 09:10:46 01/26/2019 15:19:02 Rheumatoid arthritis 58164704 M05.69 Sero positive, CCP + RA.On MTX. [...] consider change from Enbrel Long-term drug therapy 314516311 Z79.899 On assisted MTX; Needs lab monitoring ; CBC, LFT's, creat all OK 10/27/18. Rpeat today. [id number] Aguila Ferreira MD Rheumatol [place], [address] [place] [address] 05/03/2019 10:09:28 05/04/2019 06:00:31 Active or passive immunization 424559020 Z23 flu shot today.Disc ussed should get Shingrix. Rheumatoid arthritis 698 54565 M05.69 Sero positive, CCP + RA.On MTX. Good response to Enbrel, but with prednisone taper to just 1 mg, clearly had recurrent synovitis. We boosted prednisone to just 2 mg and, whether or not this was responsibl e, doing MUCH better today.Cont inue EnbrelCont MTX 20 mg/wk.Cont inue prednisone 2 mg/d indefinite ly. Update labs 3 mo.Return 6 mo or sooner if needed. [id number] Aguila Ferreira MD Rheumatol [place], [address] [address] 11/11/2019 10:46:00 11/11/2019 11:53:47 Rheumatoid arthritis 96757806 M05.69 Sero positive, CCP + RA.On MTX. Good response to Enbrel, but with prednisone taper to just 1 mg, clearly had recurrent synovitis. We boosted prednisone to just 2 mg and, whether or not this was responsibl e, doing MUCH better .Continue EnbrelCont MTX 20 mg/wk.Cont inue prednisone 2 mg/d indefinite ly. Update labs 3 mo. Knee joint effusion 2022 93134 M25.462 Inflammato ry effusions in past. L knee injected 1 year ago with sustained benefit, but some sxs recurring. Will try to hold off on injection, but if sxs progress, should call and we can schedule injection. Long-term drug therapy 177602976 Z79.899 On assisted MTX; Needs lab monitoring ; CBC, LFT's, creat all OK Moe. In view of viral epidemic, risk of exposure at routine lab follow up for DMARD medication probably outweighs benefit of labs. Hold for 3 mo. RV 3 mo. [id number] Amanda Walsh , [facility], OFFICE [address] [place] [address] 11/19/2019 15:32:13 11/22/2019 15:26:16 SARS-CoV-2 322238985 U07.1 Pt +COVID19, began experienci ng symptoms on 11/17/19. Symptoms have improved today, pt instructed to call the office if she develops any SOB or worsening symptoms. Pt has been informed of return to work guidelines , she reports she is not going back until December 01 or . Pt has discontinu ed Enbrel and Methotrexa te for [address] Ferreira. [id number] Aguila Ferreira MD Rheumatol [place], [address] [place] [address] 04/04/2020 10:49:11 04/06/2020 06:52:08 Rheumatoid arthritis 31678596 M05.69 Sero positive, CCP + RA.On MTX. [...] reducing dose of MTX. Long-term drug therapy 080313079 Z79.899 On assisted MTX; Needs lab monitoring ; CBC, LFT's, creat all OK on January.Kristina bradley Apr. RV 3 mo. [id number] Amanda RIVERS, [facility], OFFICE [address] [place] [address] 05/20/2020 07:17:29 05/22/2020 12:04:36 Active or passive immunization 278013713 Z23 [id number] Aguila Ferreira MD Rheumatol [facility], [facility] [address] [place] [address] 08/18/2020 09:10:15 08/18/2020 14:07:30 Rheumatoid arthritis 42658962 M06.9 Sero positive, CCP + RA. On MTX. Good response to Enbrel, now off prednisone entirely. Continue Enbrel Reduce MTX to 15 mg/wk mg/wk Acquired thrombocytopenia 18878815 D69.6 Borderline low plts. Trend has been downward over past year. Will reduce dose MTX, update labs in a month. Long-term drug therapy 057430285 Z79.899 MTX. LFTs OK. follow [id number] Amanda RIVERS, [facility], OFFICE [address] [place] [address] 12/07/2020 09:13:26 12/08/2020 09:35:19 Adult health examination 651723967 Z00.00 Counseling 467808349 Z71 .9 Depression screening 171 839886 Z13.31 depression screening tool administer ed, entered into emr, scored and discussed, time greater than 7.5 minutes Advance di rective discussed with patient 716571993 Z71.89 MOLST filled out today Screening mammography 24 359068 Z12.31 Screening for malignant neoplasm of colon 196121281 Z12.11 Rheumatoid arthritis 698 03044 M06.9 On Methotrexa te and Enbrel, follows with [facility] [place] Ex-smoker 9641683 Z87.89 1 [id number] Monse Mendiola MD Rheumatol [facility], [address] [address] 12/14/2020 07:51:24 12/14/2020 18:08:22 Rheumatoid arthritis 27285352 M06.9 Sero positive, CCP + RA. On MTX. Good response to Enbrel, now off prednisone entirely. Continue Enbrel and mtx. Trying to consolidat e remission then will try to wean down mtx slowly or space out Enbrel. Check labs for disease activity and medication toxicity (standing orders). Patient got COVID vaccine and PCV-13. RTC in 4 months or sooner if needed. Acquired thrombocytopenia 68778036 D69.6 Borderline low plts. Trend has been downward over past year. Monitor. Long-term drug therapy 629642734 Z79.899 On mtx and Enbrel. Monitor labs. Continue folic acid. Patient to hold mtx and enbrel if fever or any sign of infection. 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 not visually significan t. monitor annually. Presbyopia 00984535 H52. 4 [id number] Monse Mendiola MD Rheumatol [facility], [address] [address] 04/16/2021 09:31:17 04/16/2021 10:36:14 Rheumatoid arthritis 73202325 M06.9 Sero positive, CCP + RA. On MTX. Good response to Enbrel, now off prednisone entirely. Continue Enbrel and mtx. Decrease methotrexa te to 12.5 mg weekly. Check labs for disease activity and medication toxicity (standing orders). Patient got COVID vaccine and PCV-13.COV ID booster discussed. Patient to hold methotrexa te one week after the booster.Guanako ramirez to get flu shot. RTC in 4 months or sooner if needed. Long-term drug therapy 915095710 Z79.899 On mtx and Enbrel. Monitor labs. Continue folic acid. Patient to hold mtx and enbrel if fever or any sign of infection. Patient needs a full skin exam, she will check with pcp on this or she will call for a dermatolog y referral. [id number] Amanda Walsh , [facility], OFFICE [address] [place] [address] 05/25/2021 07:59:03 05/27/2021 14:59:06 Active or passive immunization 793597265 Z23 [id number] Monse Mendiola MD Rheumatol [facility], [address] [address] 08/27/2021 09:19:59 08/27/2021 11:46:26 Rheumatoid arthritis 81096588 M06.9 Sero positive, CCP + RA. On [...] or sooner if needed. Long-term drug therapy 956806558 Z79.899 On mtx and Enbrel. Monitor labs. Continue folic acid, leucovorin . Patient to hold mtx and enbrel if fever or any sign of infection. Patient needs a full skin exam, she will check with pcp on this or she will call for a dermatolog y referral. [id number] Monse Mendiola MD Rheumatol [address] [address] 12/20/2021 09:38:37 12/20/2021 13:33:30 Rheumatoid arthritis 27842991 M06.9 Sero positive, CCP + RA. On MTX. Good response to Enbrel, now off prednisone entirely. Continue Enbrel and mtx. Decrease methotrexa te to 7.5 mg weekly.Las t visit she went down for 12.5 to 1o and did not notice difference . Check labs for disease activity and medication toxicity (standing orders). Patient got COVID series (3 doses), flu shot and PCV-13 and Shngrix.Guanako ramirez ot get 4th dose of COVID vaccine, patient to hold methotrexa te one week after the dose.Incre ase folic acid to 3 tablets a day as it may help with the platelets. RTC in 4 months or sooner if needed. Long-term drug therapy 351755721 Z79.899 On mtx and Enbrel. Monitor labs. Continue folic acid, leucovorin . Patient to hold mtx and enbrel if fever or any sign of infection. Patient had recently a full skin exam at her PCP's office, it was normal per the patient. [id number] Amanda RIVERS, [facility], OFFICE [address] [place] [address] 12/10/2021 10:03:10 12/11/2021 09:07:39 Adult health examination 894385916 Z00.00 Counseling 856716602 Z71 .9 Depression screening 171 253667 Z13.31 depression screening tool administer ed, entered into emr, scored and discussed, time greater than 7.5 minutes Rheumatoid arthritis 698 49580 M06.9 On Methotrexa te and Enbrel, follows with [facility] rheumatolo gy Ex-smoker 9204570 Z87.89 1 LDCT chest 12/28/20- nml, no nodules. Pt declines annual repeat LDCT due to copay, would like to repeat every 2 years at this time Cat bite 673834848 W55.0 1XD Pt bit by her own cat, went to , is on antibiotic s with improvemen t in symptoms, tetanus is UTD, cat is UTD on vaccines. Will contact the office for any worsening symptoms [id number] Monse Mendiola MD Rheumatol [place], [facility] [address] [place] [address] 04/05/2022 10:30:41 04/05/2022 11:34:26 Rheumatoid arthritis 17422745 M06.9 Sero positive, CCP + RA. On [...] or sooner if needed. Long-term drug therapy 214098216 Z79.899 On mtx and Enbrel. Monitor labs. [...] mcnally reinforced , patient verbalizes understand ing. [id number] Davida Chance, OD [facility], [facility] [address] [place] [address] 06/14/2022 09:43:56 06/14/2022 17:09:04 Nuclear senile cataract 624525034 H25.13 mild OD>OS, pt ed. not visually significan t. monitor annually. Presbyopia 66532974 H52. 4 Blepharitis 29578805 H01 .9 pt ed. recommend lid scrub qd, hot compress qd, AT 2-4 x per day prn. [id number] Amanda Walsh , [facility], OFFICE [address] [place] [address] 04/24/2023 09:50:27 04/26/2023 22:39:19 Adult health examination 697522772 Z00.00 Depression screening 171 327122 Z13.31 depression screening tool administer ed Screening for alcohol abuse 308053597 Z13.39 Alcohol use screening tool administer ed Screening for malignant neoplasm of colon 579529599 Z12.11 declines colo - will do stool kit Screening mammography 24 030184 Z12.31 Ex-smoker 7654974 Z87.89 1 LDCT chest 01/23/22, pt declines annual repeat LDCT due to copay, would like to repeat every 2 years at this time Active or passive immunization 165435046 Z23 flu - getting today Rheumatoid arthritis 698 12534 M06.9 On Methotrexa te and Enbrel, [place] [facility] Hyperlipidemia 99734523 E78.5 Mild, recommend dietary modificati on, reassess yearly [id number] Davida Chance, OD [facility], [address] [place] [address] 08/25/2023 13:03:22 08/26/2023 14:15:28 Nuclear senile cataract 279409060 H25.13 mild OD>OS, pt ed. not visually significan t. monitor annually. Presbyopia 43831175 H52. 4 Nevus of c horoid of left eye 4644697580 37254 D31.32 appears benign, no risk factors, pt ed. baseline photo today. Macular drusen 381623167 H35.362 few OS, pt ed. Observe. monitor here annually. 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 Health Concerns Section Related Observation LastModified by Organization Detai ls LastModified Time None Recorded Concern Status LastModified by Organization Details LastModified Time None Recorded Advance Directives Directive N: Payers Encounter Date Sequence Insurance Name Policy Number Policy Bond Covered Member ID Bond Member ID Guarantor Name 12/20/2021 2 [place] [employer] 104 Vianey Shepard [id number] Vianey Shepard 12/20/2021 1 [place]IC[place]: [employer] Vianey Shepard [id number] Vianey Shepard 04/05/2022 2 [place] [employer] 104 Vianey Shepard [id number] Vianey Shepard 04/05/2022 1 [place] [facility] Vianey Shepard [id number] 2 Vianey Shepard 06/14/2022 2 [facility]: [employer]EE [employer] 104 Vianey Shepard [id number] Vianey Shepard 06/14/2022 1 [place] [facility] Vianey Shepard [id number] 2 Vianey Shepard 04/24/2023 2 [facility]: [employer] 104 Vianey Shepard [id number] Vianey Shepard 04/24/2023 1 [place]: [facility] Vianey Shepard [id number] 2 Vianey Shepard 08/25/2023 2 [facility]: [employer] 104 Vianey Shepard [id number] Vianey Shepard 08/25/2023 1 [place]: [facility] Vianey Shepard [id number] 2 Vianey Shepard Notes Date Note Type Note Provider Name [...] fully treated. Labs reviewed. Sven Mendiola MD [address] [place] [address], [phone], [facility] 12/20/2021 10:25:10 04/05/2022 text/html Patient [...] fully treated. Labs reviewed. Sven Mendiola MD [address] [place] [address], [phone], [facility] 04/05/2022 11:27:53 06/14/2022 text/html CataractReported bypatient.Location:bi lateral Quality:painless Severity:mild Onset/Timing:gradualC omprehensive Eye ExamReported bypatient.Quality:1 year exam; no blurred vision Context:currently wears glasses Modifying factors:wears glasses for distance and near Associated Symptoms:no redness; no itching; no dryness;floaters tearing sometimes, once per week or less, OD. no eye pain. Davida Contehcherry, OD [address] [place], [address], [facility] 06/14/2022 14:41:27 04/24/2023 text/html Risk Assessment and Lifestyle Change Counseling 65+ (Medicare)Reported bypatient.Coronary Artery Disease Risk Assessment:Family History of Coronary Artery Disease(mother- [place]); No personal history of diabetes; No history [...] states has at home, will upload into [facility] mammo 05/14/21- nml, will repeat this yearLDCT chest 01/23/22- unchanged small nodules, recommended repeat annually but pt doesn't want to do so annually due to copay, will do so every other year (next year)IFOBT done 03/2021 was normalPt had ECHO and PFT done with bolt maker which were normalGoes to rheumatology for RA, taking Enbrel and Methotrexate.Has 40+ pack year history, has quit smokingHas not drank alcohol since 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 Davida Chance, OD [address] [place] [address], [phone], [facility] 08/25/2023 16:10:57 OBGyn Episode No OBEpisode recorded.
[2024-12-31 11:10] LABS: MANUAL DIFF FLAG NO
[2024-12-31 11:28] LABS: Basophils Absolute Auto 0.1 X10*3/uL (0.0-0.2); Basophils Percent Auto 0.5 % (0-2); Eosinophils Absolute Auto 0.1 X10*3/uL (0.0-0.4); Hematocrit 44.6 % (37.0-47.0); Hemoglobin 14.2 g/dl (12.0-16.0); Imm Gran Abs Auto 0.02 X10*3/uL (0.00-0.03); Imm Gran Pct Auto 0.2 % (0.0-0.4); Lymphocytes Percent Auto 31.8 % (20-40); Mean Corpuscular HGB Conc 31.8 g/dl (31.0-35.0); Mean Corpuscular Hemoglobin 30.7 pg (27.0-33.0); Mean Corpuscular Volume 96.3 fL (80.0-98.0); Mean Platelet Volume 9.4 fL (9.4-12.3); Monocytes Absolute Auto 1.2 X10*3/uL (0.1-1.2); Monocytes Percent Auto 12.3 % (2-11); Neutrophils Absolute Auto 5.1 x10*3/uL (2.0-8.3); Neutrophils Percent Auto 54.2 % (45-73); Platelet Count 270 X10*3/uL (160-400); Red Blood Count 4.63 X10*6/uL (4.20-5.50); White Blood Count 9.3 X10*3/uL (4.8-10.8)
[2024-12-31 12:08] LABS: Erythrocyte Sedimentation Rate 34 MM/HR (0-20)
[2024-12-31 12:36] LABS: Alanine Aminotransferase 13 U/L (0-31); Albumin Level 3.8 g/dL (3.5-5.0); Alkaline Phosphatase 73 U/L (39-117); Anion Gap 12 (12-20); Aspartate Amino Transferase 17 U/L (5-31); Bilirubin Total 0.5 mg/dL (0.0-1.0); Blood Urea Nitrogen 21 mg/dL (9-16); C Reactive Protein 2.69 mg/dL (< or = 0.50); Calcium 9.5 mg/dL (8.4-10.2); Carbon Dioxide 27 mmol/L (22-29); Chloride 107 mmol/L (96-108); Estimated Glomerular Filt Rate > 60; Glucose Random 103 mg/dL (60-115); Sodium 142 mmol/L (135-145); Total Protein 7.1 g/dL (6.5-8.0)
[2024-12-31 12:38] LABS: HBS Num1 1.27 mIU/mL (0-7.99); HBc Num1 0.21 S/CO (0.00-0.79); HBsAGNum1 0.37 S/CO (0.00-0.99); Hepatitis A Antibody IgM 0.17 Index (0-0.79); Hepatitis B Core Antibody Nonreactive (Nonreactive); Hepatitis B Surface Antigen Negative (Negative); ~HepC Num1 0.24 S/CO (0.00-0.79); ~Hepatitis A Antibody IgM Nonreactive (Nonreactive); ~Hepatitis B Surface Antibody NONREACTIVE (Nonreactive); ~Hepatitis C Antibody Nonreactive (Nonreactive)
[2025-01-02 23:47] LABS: TS Negative Control Passed; TS Panel A 0; TS Panel B 0; TS Positive Control Passed; TSpotTB Negative (Negative)
== END 2024-12-31 08:31 | disposition home or self-care (01) ==
LOC: HO.WFDLDS 08:30
PROVIDERS: Visit Provider Student in an Organized Health Care Education/Training Program
DX: M06.09 Rheumatoid arthritis without rheumatoid factor, multiple sites (principal)
CPT/HCPCS: 36415; 80053; 85025; 85652; 86140; 86481; 86704; 86706; 86709; 86803; 87340

== ENCOUNTER 2025-01-05 08:21 | Outpatient (AMB) | payer MEDICARE, BC, SELFPAY ==
--- OUTSIDE RECORDS SUMMARY | 2025-01-05 08:29 | XMS_ITS | Data Portability ---
Author Organization [facility], FORMERLY [facility] Address [address] [place] [address] Care Team Providers Care Livestock Showman Name Role Phone AMANDA PEREZ Primary Care Provider [facility] RHE[facility] Rheumatologi st Assessment Encounter Date [...] order through -IFOBT order set. 2022 023 [facility], [address] [place], [address], 12:25:58 Referral None recorded. Procedures None recorded. Surgeries None recorded. Imaging MAMMO, screening, tomosynthes is, bilateral - Note to Provider: Diag Mammo/US Breast/Guid ed Asp/Breast Bx as clinically indicated 2022 023 [facility] (Imaging), [address], [place], [address], 3 15:33:19 Medication Orders methotrexat e sodium 2.5 mg tablet 2021 022 [facility]acy #[id number], [address] [place], [address], 10:25:00 leucovorin calcium 5 mg tablet 2021 022 [facility]acy #2025, [address] [place], [address], 10:25:00 Patient TargetsNo targets recorded. Patient Instructions Encounter Date Encounter Id Patient Instructions Last Modified By Organization Details Last Modified Time 04/24/2023 [id number] advance directives: care instructions Not available 04/24/2023 [...] K/? ? ?L 3.98-1 0.04 Not Available [address], [address], 12/06/2021 09:19:12 12/07/19 22 12/06/2021 CBC RBC 4.48 M/? ? ?L 3.93-5 .22 Not Available [address], [address], 12/06/2021 09:19:12 12/07/1912/06/2021 CBC HGB 14.0 g/dL 11.2-1 5.7 Not Available [address], [address], 12/06/2021 09:19:12 12/07/1912/06/2021 CBC HCT 43.7 % 34.1-4 4.9 Not Available [address], [address], 12/06/2021 09:19:12 12/07/19 22 12/06/2021 CBC MCV 97.5 fL 79.4-9 4.8 high Not Available [address], [address], 12/06/2021 09:19:12 12/07/19 22 12/06/2021 CBC MCH 31.3 pg 25.6-3 2.2 Not Available [address], [address], 12/06/2021 09:19:12 12/07/19 22 12/06/2021 CBC MCHC 32.0 g/dL 32.2-3 5.5 low Not Available [address], [address], 12/06/2021 09:19:12 12/07/19 22 12/06/2021 CBC plt 177 K/? ? ?L 182-36 9 low Not Available [address], [address], 12/06/2021 09:19:12 12/07/19 22 12/06/2021 CBC MPV 10.2 fL 9.4-12 .3 Not Available [address], [address], 12/06/2021 09:19:12 12/07/19 22 12/06/2021 CBC neut% 33.2 % 34.0-7 1.1 low Not Available [address], [address], 12/06/2021 09:19:12 12/07/19 22 12/06/2021 CBC neut# 1.55 1.56-6 .13 low Not Available [address], [address], 12/06/2021 09:19:12 12/07/19 22 12/06/2021 CBC lymph % 48.3 % 19.3-5 1.7 Not Available [address], [address], 12/06/2021 09:19:12 12/07/19 22 12/06/2021 CBC lymph # 2.26 K/? ? ?L 1.18-3 .74 Not Available [address], [address], 12/06/2021 09:19:12 12/07/19 22 12/06/2021 CBC mono% 14.7 % 4.7-12 .5 high Not Available [address], [address], 12/06/2021 09:19:12 12/07/19 22 12/06/2021 CBC mono# 0.69 0.24-0 .56 high Not Available [address], [address], 12/06/2021 09:19:12 12/07/19 22 12/06/2021 CBC eo% 3.2 % 0.7-5. 8 Not Available [address], [address], 12/06/2021 09:19:12 12/07/19 22 12/06/2021 CBC eo# 0.15 0.04-0 .36 Not Available [address], [address], 12/06/2021 09:19:12 12/07/19 22 12/06/2021 CBC baso% 0.4 % 0.1-1. 2 Not Available [address], [address], 12/06/2021 09:19:12 12/07/19 22 12/06/2021 CBC baso# 0.02 0.00-0 .08 Not Available [address], [address], 12/06/2021 09:19:12 12/07/19 22 12/06/2021 CBC RDW-CV 15.3 % 11.7-1 4.4 high Not Available [address], [address], 12/06/2021 09:19:12 12/07/19 22 12/06/2021 CBC Ig% 0.200 % 0.000- 1.500 Ig % >0.5 Indic ates possi ble Left Shift Not Available [address], [address], 12/06/2021 09:19:12 12/07/19 22 12/06/2021 CBC Ig# 0.010 0.000- 0.093 Not Available [address], [address], 12/06/2021 09:19:12 12/07/19 22 12/06/2021 CBC NRBC% 0.0 % 0.0-0. 2 Not Available [address], [address], 12/06/2021 09:19:12 12/07/19 22 12/06/2021 CBC NRBC# 0.000 0.000- 0.012 Not Available [address], [address], 12/06/2021 09:19:12 12/07/19 22 12/06/2021 ESR sed rate 14.0 0.0-15 .0 Not Available [address], [address], 12/06/2021 10:47:26 12/07/19 22 12/06/2021 COMP. METAB OLIC PANEL glucose 96 mg/dL 70-100 Not Available [address], [address], 12/06/2021 17:34:26 12/07/19 22 12/06/2021 COMP. METAB OLIC PANEL BUN 17 mg/dL 7-18 Not Available [address], [address], 12/06/2021 17:34:26 12/07/19 22 12/06/2021 COMP. METAB OLIC PANEL creatinine 0.8 mg/dL 0.8-1. 3 Not Available [address], [address], 12/06/2021 17:34:26 12/07/19 22 12/06/2021 COMP. METAB OLIC PANEL B/C 21.3 ratio Not Available [address], [address], 12/06/2021 17:34:26 12/07/19 22 12/06/2021 COMP. METAB [...] be used in pregn gloria. Not Available [address], [address], 12/06/2021 17:34:26 12/07/19 22 12/06/2021 COMP. METAB OLIC PANEL sodium 140 mmol/ L 136-14 5 Not Available [address], [address], 12/06/2021 17:34:26 12/07/19 22 12/06/2021 COMP. METAB OLIC PANEL potassium 4.6 mmol/ L 3.5-5. 1 Not Available [address], [address], 12/06/2021 17:34:26 12/07/19 22 12/06/2021 COMP. METAB OLIC PANEL chloride 105 mmol/ L 96-107 Not Available [address], [address], 12/06/2021 17:34:26 12/07/19 22 12/06/2021 COMP. METAB OLIC PANEL anion gap 5.4 5.0-15 .0 Not Available [address], [address], 12/06/2021 17:34:26 12/07/19 22 12/06/2021 COMP. METAB OLIC PANEL CO2 30 mmol/ L 21-32 Not Available [address], [address], 12/06/2021 17:34:26 12/07/19 22 12/06/2021 COMP. METAB OLIC PANEL calcium 8.9 mg/dL 8.5-10 .3 Not Available [address], [address], 12/06/2021 17:34:26 12/07/19 22 12/06/2021 COMP. METAB OLIC PANEL total protein 7.0 g/dL 6.4-8. 2 Not Available [address], [address], 12/06/2021 17:34:26 12/07/19 22 12/06/2021 COMP. METAB OLIC PANEL albumin 3.7 g/dL 3.4-5. 0 Not Available [address], [address], 12/06/2021 17:34:26 12/07/19 22 12/06/2021 COMP. METAB OLIC PANEL globulin 3.3 g/dL Not Available [address], [address], 12/06/2021 17:34:26 12/07/19 22 12/06/2021 COMP. METAB OLIC PANEL A/G 1.1 ratio 0.8-2. 0 Not Available [address], [address], 12/06/2021 17:34:26 12/07/19 22 12/06/2021 COMP. METAB OLIC PANEL total bilirubin 0.70 mg/dL 0.00-1 .00 Not Available [address], [address], 12/06/2021 17:34:26 12/07/19 22 12/06/2021 COMP. METAB OLIC PANEL AST 22 U/L 0-37 Not Available [address], [address], 12/06/2021 17:34:26 12/07/19 22 12/06/2021 COMP. METAB OLIC PANEL ALT 30 U/L 6-63 Not Available [address], [address], 12/06/2021 17:34:26 12/07/19 22 12/06/2021 COMP. METAB OLIC PANEL alk. phos. 63 U/L 50-136 Not Available [address], [address], 12/06/2021 17:34:26 12/07/19 22 12/06/2021 C-ELOISA CTIVE PROTE IN-QU ANTIT ATIVE C-reactive protein -quant <2.0 mg/L 0.0-9. 0 < crp verif ied, cmd Not Available [address], [address], 12/06/2021 18:26:14 03/07/20 22 03/07/2022 WOUND CULTU RE/SM EAR special requests None Not Available [facility] (Outpatient) [address] [place], [address], 03/09/2022 11:03:10 03/07/20 22 03/08/2022 WOUND CULTU RE/SM EAR gram stain NO ORGANI SMS SEEN Not Available [facility] (Outpatient) [address] [place], [address], 03/09/2022 11:03:10 03/07/20 22 03/09/2022 WOUND CULTU RE/SM EAR wound culture/smea r PASTEU RELLA MULTOC TOMY abnormal Not Available [facility] (Outpatient) [address] [place], [address], 03/09/2022 11:03:10 03/07/20 22 03/09/2022 WOUND CULTU RE/SM EAR cefazolin <=4 susceptib le Not Available [facility] (Outpatient) [address] [place], [address], 03/09/2022 11:03:10 03/07/20 22 03/09/2022 WOUND CULTU RE/SM EAR ceftazidime 4 susceptib le Not Available [facility] (Outpatient) [address] [place], [address], 03/09/2022 11:03:10 03/14/20 22 03/14/2022 CBC WBC 5.96 K/? ? ?L 3.98-1 0.04 Not Available [address], [address], 03/14/2022 10:41:20 03/14/20 22 03/14/2022 CBC RBC 4.78 M/? ? ?L 3.93-5 .22 Not Available [address], [address], 03/14/2022 10:41:20 03/14/20 22 03/14/2022 CBC HGB 14.5 g/dL 11.2-1 5.7 Not Available [address], [address], 03/14/2022 10:41:20 03/14/20 22 03/14/2022 CBC HCT 45.5 % 34.1-4 4.9 high Not Available [address], [address], 03/14/2022 10:41:20 03/14/20 22 03/14/2022 CBC MCV 95.2 fL 79.4-9 4.8 high Not Available [address], [address], 03/14/2022 10:41:20 03/14/20 22 03/14/2022 CBC MCH 30.3 pg 25.6-3 2.2 Not Available [address], [address], 03/14/2022 10:41:20 03/14/20 22 03/14/2022 CBC MCHC 31.9 g/dL 32.2-3 5.5 low Not Available [address], [address], 03/14/2022 10:41:20 03/14/20 22 03/14/2022 CBC plt 164 K/? ? ?L 182-36 9 low Not Available [address], [address], 03/14/2022 10:41:20 03/14/20 22 03/14/2022 CBC MPV 9.9 fL 9.4-12 .3 Not Available [address], [address], 03/14/2022 10:41:20 03/14/20 22 03/14/2022 CBC neut% 33.4 % 34.0-7 1.1 low Not Available [address], [address], 03/14/2022 10:41:20 03/14/20 22 03/14/2022 CBC neut# 1.99 1.56-6 .13 Not Available [address], [address], 03/14/2022 10:41:20 03/14/20 22 03/14/2022 CBC lymph % 45.6 % 19.3-5 1.7 Not Available [address], [address], 03/14/2022 10:41:20 03/14/20 22 03/14/2022 CBC lymph # 2.72 K/? ? ?L 1.18-3 .74 Not Available [address], [address], 03/14/2022 10:41:20 03/14/20 22 03/14/2022 CBC mono% 17.8 % 4.7-12 .5 high SREV= Slide revie wed by [facility]. Not Available [address], [address], 03/14/2022 10:41:20 03/14/20 22 03/14/2022 CBC mono# 1.06 0.24-0 .56 high Not Available [address], [address], 03/14/2022 10:41:20 03/14/20 22 03/14/2022 CBC eo% 2.7 % 0.7-5. 8 Not Available [address], [address], 03/14/2022 10:41:20 03/14/20 22 03/14/2022 CBC eo# 0.16 0.04-0 .36 Not Available [address], [address], 03/14/2022 10:41:20 03/14/20 22 03/14/2022 CBC baso% 0.3 % 0.1-1. 2 Not Available [address], [address], 03/14/2022 10:41:20 03/14/20 22 03/14/2022 CBC baso# 0.02 0.00-0 .08 Not Available [address], [address], 03/14/2022 10:41:20 03/14/20 22 03/14/2022 CBC RDW-CV 14.5 % 11.7-1 4.4 high Not Available [address], [address], 03/14/2022 10:41:20 03/14/20 22 03/14/2022 CBC Ig% 0.200 % 0.000- 1.500 Ig % >0.5 Indic ates possi ble Left Shift Not Available [address], [address], 03/14/2022 10:41:20 03/14/20 22 03/14/2022 CBC Ig# 0.010 0.000- 0.093 Not Available [address], [address], 03/14/2022 10:41:20 03/14/20 22 03/14/2022 CBC NRBC% 0.0 % 0.0-0. 2 Not Available [address], [address], 03/14/2022 10:41:20 03/14/20 22 03/14/2022 CBC NRBC# 0.000 0.000- 0.012 Not Available [address], [address], 03/14/2022 10:41:20 03/14/20 22 03/14/2022 ESR sed rate 18.0 0.0-15 .0 high Not Available [address], [address], 03/14/2022 10:58:06 03/14/20 22 03/14/2022 COMP. METAB OLIC PANEL glucose 92 mg/dL 70-100 Not Available [address], [address], 03/14/2022 12:47:50 03/14/20 22 03/14/2022 COMP. METAB OLIC PANEL BUN 19 mg/dL 7-18 high Not Available [address], [address], 03/14/2022 12:47:50 03/14/20 22 03/14/2022 COMP. METAB OLIC PANEL creatinine 0.9 mg/dL 0.8-1. 3 Not Available [address], [address], 03/14/2022 12:47:50 03/14/20 22 03/14/2022 COMP. METAB OLIC PANEL B/C 21.1 ratio Not Available [address], [address], 03/14/2022 12:47:50 03/14/20 22 03/14/2022 COMP. METAB [...] be used in pregn gloria. Not Available [address], [address], 03/14/2022 12:47:50 03/14/20 22 03/14/2022 COMP. METAB OLIC PANEL sodium 142 mmol/ L 136-14 5 Not Available [address], [address], 03/14/2022 12:47:50 03/14/20 22 03/14/2022 COMP. METAB OLIC PANEL potassium 4.3 mmol/ L 3.5-5. 1 Not Available [address], [address], 03/14/2022 12:47:50 03/14/20 22 03/14/2022 COMP. METAB OLIC PANEL chloride 105 mmol/ L 96-107 Not Available [address], [address], 03/14/2022 12:47:50 03/14/20 22 03/14/2022 COMP. METAB OLIC PANEL anion gap 8.5 5.0-15 .0 Not Available [address], [address], 03/14/2022 12:47:50 03/14/20 22 03/14/2022 COMP. METAB OLIC PANEL CO2 29 mmol/ L 21-32 Not Available [address], [address], 03/14/2022 12:47:50 03/14/20 22 03/14/2022 COMP. METAB OLIC PANEL calcium 8.4 mg/dL 8.5-10 .3 low Not Available [address], [address], 03/14/2022 12:47:50 03/14/20 22 03/14/2022 COMP. METAB OLIC PANEL total protein 6.9 g/dL 6.4-8. 2 Not Available [address], [address], 03/14/2022 12:47:50 03/14/20 22 03/14/2022 COMP. METAB OLIC PANEL albumin 3.4 g/dL 3.4-5. 0 Not Available [address], [address], 03/14/2022 12:47:50 03/14/20 22 03/14/2022 COMP. METAB OLIC PANEL globulin 3.5 g/dL Not Available [address], [address], 03/14/2022 12:47:50 03/14/20 22 03/14/2022 COMP. METAB OLIC PANEL A/G 1.0 ratio 0.8-2. 0 Not Available [address], [address], 03/14/2022 12:47:50 03/14/20 22 03/14/2022 COMP. METAB OLIC PANEL total bilirubin 0.50 mg/dL 0.00-1 .00 Not Available [address], [address], 03/14/2022 12:47:50 03/14/20 22 03/14/2022 COMP. METAB OLIC PANEL AST 20 U/L 0-37 Not Available [address], [address], 03/14/2022 12:47:50 03/14/20 22 03/14/2022 COMP. METAB OLIC PANEL ALT 22 U/L 6-63 Not Available [address], [address], 03/14/2022 12:47:50 03/14/20 22 03/14/2022 COMP. METAB OLIC PANEL alk. phos. 70 U/L 50-136 Not Available [address], [address], 03/14/2022 12:47:50 03/14/20 22 03/14/2022 C-ELOISA CTIVE PROTE IN-QU ANTIT ATIVE C-reactive protein -quant 7.7 mg/L 0.0-9. 0 Not Available [address], [address], 03/14/2022 12:47:51 04/17/20 23 04/17/2023 LIPID PANEL cholesterol 245 mg/dL <200 mg/dl Tobias able 200-2 39 mg/dl Borde rline High >240 mg/dl High Not Available [address], [address], 04/17/2023 11:35:05 04/17/20 23 04/17/2023 LIPID PANEL triglyceride s 144 mg/dL <150 mg/dL Jeaneth l 150-1 99 mg/dL Borde rline High 200-4 99 mg/dL High >500 mg/dL Very High Not Available [address], [address], 04/17/2023 11:35:05 04/17/20 23 04/17/2023 LIPID PANEL direct HDL 63 mg/dL <40 mg/dl - Major Risk for CHD >60 mg/dl - Negat lorraine Risk for CHD Not Available [address], [address], 04/17/2023 11:35:05 04/17/20 23 04/17/2023 LDL - [...] r is not neces danial. Not Available [address], [address], 04/17/2023 11:35:06 10/20/19 24 10/21/2023 IMMUN OCHEM ICAL FECAL OCCUL T BLOOD ifobt NEGATI VE negati ve Not Available [address], [address], 10/21/2023 12:25:58 01/24/20 22 01/23/2022 CT, chest No observ ation record ed. [facility] [address] [facility], [place], [address], 01/23/2022 18:15:12 04/24/20 23 12/16/2022 trans -thor [...] 03:32: 35 PM Lucy townsend: Karlee Magallanes [facility] (Imaging) [address] [place], [address], 05/02/2023 08:17:17 Result Notes None recorded. Problems Name Problem SNOMED Code Status Onset Date Resolution Date Notes Provider Name and Address Organization Details Recorded Time Abnormal findings on diagnost ic imaging of breast 620471744 Completed 12/11/20[address]za [address] [place], [place] [address], [address], [facility] 2 08:07:32 Mammogra phy abnormal 519450034 Completed 12/11/2021 GUANAKO Espinoza [address] [place], [place] [address], [address], [facility] 2 08:12:14 Rheumato id arthriti s 96609809 Active 2017 [facility] rheumatol ogy GUANAKO Espinoza [address] [place], [place] [address], [address], [facility] 3 15:48:59 Long-ter m drug therapy Active 2017 GUANAKO Espinoza [address] [place], [place] [address], [address], [facility] 2 08:12:05 Reactive depressi on (situati onal) 43781133 Active 2017 treated in the . 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 Procedures Surgical History Date Name Laterality Status Provider Name and Address Organization Details Recorded Time 08/25/19 24 Fundus Photography completed Davida Chance, OD [address] [place] [address], [address], [facility] 08/25/2023 16:05:56 08/25/19 24 Refraction completed Davida Chance, OD [address] [place], [address], [facility] 08/25/2023 16:05:18 04/24/20 23 Medicare Wellness Visit completed Alaina Molina [place] 04/24/2023 09:36:14 06/14/20 22 Refraction completed Davida Chance, OD [address] [place], [address], [facility] 06/14/2022 10:35:11 12/11/19 22 Medicare Wellness Visit completed Alda Vail [place] 12/07/2021 16:19:14 02/15/20 21 Refraction completed Davida Chance, OD [address] [place], [address], [facility] 02/14/2021 09:32:46 12/08/19 21 Medicare Wellness Visit completed Ashley Nicholson CMA [facility] 12/05/2020 13:50:19 12/08/19 21 Advanced Care Planning completed GUANAKO Espinoza [address] [place], [address], [facility] 12/07/2020 10:24:47 10/28/19 19 Knee (Left) Injection completed Aguila Ferreira MD [address] [place], [address], [facility] 10/28/2018 08:19:53 03/13/20 18 Smoking cessation counseling completed [facility] 03/13/2018 16:18:04 03/13/20 18 Carbon Monoxide Testing completed [facility] 03/13/2018 16:18:04 07/28/18 59 Remove tonsils and adenoids completed Selene Sun PA-C [address] [place] [address], [address], [facility] 05/11/2018 11:33:45 Tooth root removal completed Selene Sun PA-C [address] [place] [address], [phone], [facility] 05/11/2018 11:34:02 Imaging Results None recorded. Procedure [...] 0 Not Available Not Available Not Available [facility] COVID-19 Vaccine (PF) 30 mcg/0.3 mL IM susp (purple) PHARMACY ADMINIST ERED 12/07 completed Not Available Not Available Not Available Vitals Date Recorded Body height Body mass index (BMI) Body weight Heart rate Systolic blood pressure Diastolic blood pressure Provider Name and Address Organization Details Last Updated DateTime 2 176.53 cm 30.3 kg/m2 32377.2 1 g 82 /min 122 mm[Hg] 80 mm[Hg] Griselda Guerrero LPN [facility] 2 09:49:07 Date Recorded Body height Body mass index (BMI) Body weight Heart rate Systolic blood pressure Diastolic blood pressure Provider Name and Address Organization Details Last Updated DateTime 2 176.53 cm 30.5 kg/m2 61068.6 8 g 61 /min 132 mm[Hg] 80 mm[Hg] Griselda Guerrero LPN [facility] 2 10:38:29 Date Recorded Body weight Body mass index (BMI) Body height Heart rate Systolic blood pressure Diastolic blood pressure Provider Name and Address Organization Details Last Updated DateTime 3 10707.0 2 g 30.2 kg/m2 176.53 cm 60 /min 130 mm[Hg] 76 mm[Hg] Alaina burger MA [facility] 3 10:26:11 Social History Question Answer Notes LastModified by Organizat ion Details LastModified Time Tobacco Smoking Status Former Smoker stopped Feb, 2018. [facility] 09:11:59 Do You Have An Advance Directive? No Information not available 09/03/2011 What Is Your Level Of Caffeine Consumption? Heavy [email or web address] Information not available 03/13/2018 What Type Of Diet Are You Following? REGULAR Information not available 09/03/2011 Which Illicit Or Recreational Drugs Have You Used? 0 Information not available 05/11/2018 Education 2 Year College [email or web address] Information not available 03/13/2018 When Did You Quit Smoking? 1-5yearssin [email or web address] ette Information not available 05/11/2018 How Many Days In The Past Year Have You Had A Heavy Drinking Consumption (4+ Female, 5+ Male)? 0 Information not available 05/11/2018 Are There Any Guns Present In Your Home? No Information not available 03/13/2018 Live Alone Or With Others? Alone Information not available 09/03/2011 Patient Has Health Care Proxy Signed And In Chart No Information not available 09/03/2011 CCM Consent Discussion 11/09/2018 [email or web address] Information not available 11/10/2018 Marital Status Single Informatio n not available 09/03/2011 Mosquito Repellent Used Routinely Yes [email or web address] Information not available 03/13/2018 What Was The Date Of Your Most Recent Tobacco Screening? 04/24/2023 [email or web address] Information not available 04/24/2023 How Many Children Do You Have? 0 Information not available 09/03/2011 What Is Your Current Pack Years? 30ormorepac kyears 40+ Years, 1 Ppd Information not available 05/11/2018 Seat Belts Used Routinely Yes [email or web address] Information not available 03/13/2018 Are You Sexually Active? No Not Since 2000 Information not available 09/03/2011 Smoke Alarm In Home Yes Information not available 03/13/2018 At What Age Did You Start Smoking Tobacco? 1976 Information not available 09/03/2011 General Stress Level Low [email or web address] Information not available 03/13/2018 Do You Use Sunscreen Routinely? Yes [email or web address] Information not available 03/13/2018 Sex: Unknown Functional Status Question Answer Note LastModified by Organizat ion Details LastModified Time What is your level of alcohol consumption? None stopped 02/2018 [email or web address] Information not available 04/04/2020 Do you or have you ever used smokeless tobacco? 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 Never used electronic cigarettes Information not available 12/05/2020 Mental Status None recorded. Family History Relationship Description Onset Age of this Age Resolved Age Notes LastModified by Organization Details LastModified Time Mother Diabetes mellitus previo usly record ed as Diabet es [id number] Not available 03/08/2013 03:01:15 Mother Hypertensive disorder [email or web address] Not available 2017 11:34:34 Mother Myocardial infarction [email or web address] Not available 05/11 11:34:56 Mother Heart disease [email or web address] Not available 2017 11:35:17 Father Rheumatoid arthritis [email or web address] Not available 2017 08:53:48 Medical History Condition Response INFECTIOUS DISEASE GERD Y Rheumatoid Arthritis Y RENAL / GENITOURINARY Y Gynecological HistoryNo gynecological history recorded. Obstetrics History GPAL:G 0 P 0 0 0 0 Immunizations Vaccine Type Date Status Note Provider Nam e and Address Organization Details Recorded Time Tdap 8 completed Not Available [facility] 08/14/2019 02:30:32 Influenza, split virus, quadrivalent, PF 8 completed Not Available [facility] 08/14/2019 02:33:43 Pneumococcal conjugate PCV 13 9 completed Not Available [facility] 08/14/2019 02:30:33 Influenza, high-dose, trivalent, PF 9 completed Not Available [facility] 08/14/2019 02:24:37 Influenza, high-dose, quadrivalent, PF 0 completed Sandra Barnett null, [facility] 05/20/2020 11:25:10 Influenza, high-dose, quadrivalent, PF 1 [facility]21 SARS-COV-2 (COVID-19) vaccine, UNSPECIFIED 0 completed Sarah Coy LPN null, [facility] 08/18/2020 09:16:13 SARS-COV-2 (COVID-19) vaccine, UNSPECIFIED 1 completed Sarah Coy LPN null, [facility] 08/18/2020 09:16:44 zoster recombinant 0 completed Nupur Gunn RMA null, [facility] 12/07/2020 09:22:18 zoster recombinant 0 completed N[facility] Crespo [facility] [place] 12/07/2020 09:22:28 Influenza, high-dose, quadrivalent, PF 3 completed GUANAKO Espinoza [address] [place] [address], [phone], [facility] 04/24/2023 10:37:27 COVID-19, mRNA, LNP-S, PF, 30 mcg/0.3 mL dose 2 completed Griselda Guerrero LPN null, [facility] [place] 04/05/2022 10:37:02 Influenza, high-dose, quadrivalent, PF 2 completed Griselda Guerrero LPN [facility] 2022 14:07:20 Past Encounters Encounter ID Performer Location Encounter Start Date Encounter Closed Date Diagnosis/Indication Diagnosis SNOMED-CT Code Diagnosis ICD10 Code Diagnosis Note [id number] Jenny Estevez MD , [facility], OFFICE [address] [place] [address] 09/03/2011 08:49:48 09/03/2011 10:19:07 [id number] [facility] MAMMO TECH Radiology , [address] [address] 09/12/2011 13:29:11 09/17/2011 14:45:53 [id number] [facility] MAMMO [facility] Radiology , [address] [address] 09/20/2011 11:22:03 09/24/2011 11:43:28 [id number] [facility] 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 Wanting to quit. Active or passive immunization 201857116 Z23 Swelling of hand 8936768 03 R22.33 [id number] Aguila Ferreira MD Rheumatol y, [facility] [address] [place] [address] 03/27/2018 13:53:45 03/27/2018 16:43:37 Rheumatoid arthritis 82169265 M06.9 Highly likely Sero positive RA. Symptoms [...] calcium, vit D while on prednisone . [id number] Aguila Ferreira MD Rheumatol [facility], [facility] [address] [place] [address] 05/04/2018 09:40:17 05/05/2018 07:08:57 Rheumatoid arthritis 00905589 M05.69 Sero positive, CCP + RA. There [...] Follow up 6 weeks. Long-term drug therapy 858674411 Z79.899 On retirement MTX; Needs lab monitoring ; Check CBC, LFT's, creat Long-term current use of systemic steroid 9251065814 56137 Z79.52 10 mg with plans to taper.Cont inue calcium and Vit D. [id number] Amanda Walsh , [facility], OFFICE [address] [place] [address] 05/11/2018 11:05:39 05/11/2018 12:39:20 Adult health examination 255891125 Z00.00 see Risk Assessment and Lifestyle Change Counseling section above Depression screening 171 235715 Z13.89 depression screening tool administer ed, entered into emr, scored and discussed, time greater than 7.5 minutes Rheumatoid arthritis 698 21766 M06.9 Continue care plan per rheum Screening for malignant neoplasm of cervix 206099146 Z12.4 Ex-smoker 4973227 Z87.89 1 Screening for malignant neoplasm of colon 666345264 Z12.11 Hyperglycemia 58048736 R 73.9 Non fasting glucose elevated. Will check fasting glucose. Overweight 674076629 E66 .3 Elevated blood-pressure reading without diagnosis of hypertension 179579550 R03.0 Monitor BP at home. If consistent ly >130/80, come back for BP recheck sooner than 6 months. Active or passive immunization 385292152 Z23 Vaginal mass 301280670 N 89.8 Pt co-evaluat ed with Dr. Walsh. Will check transvagin al ultrasound for further characteri zation of mass. At this point concern for malignancy is low as it has been present for at least 10 years and per pt has remained unchanged. [id number] Aguila Ferreira MD Rheumatol [address] [place] [address] 06/16/2018 09:42:04 06/17/2018 07:10:06 Rheumatoid arthritis 48160212 M05.69 Sero positive, CCP + RA. There [...] up 6 weeks. Menopausal and postmenopausal disorders 187000433 N95.9 psot menopausal , on steroids. Also RA. Risk for osteoprosi s. Check scan.Calci um and vit D supplement s. Long-term drug therapy 537563155 Z79.899 On retirement MTX; Needs lab monitoring ; Check CBC, LFT's, creat [id number] Aguila Ferreira MD Rheumatol [place], [address] [place] [address] 07/09/2018 10:38:47 07/10/2018 07:02:53 Rheumatoid arthritis 83757014 M05.69 Sero positive, CCP + RA. There has been substantia l improvemen t on current prednisone 10 + MTX 20 . However, even on the 10 mg/d prednisone , there is still obvious active synovitis. Starting Enbrel today. Continue MTX. Up to date on labs. Cont pred 10/d for now, but expect to taper at next visit.BMD pending. Follow up 6 weeks. [id number] Aguila Ferreira MD Rheumatol [facility], [address] [place] [address] 08/11/2018 08:42:56 08/13/2018 14:53:38 Rheumatoid arthritis 34827252 M05.69 Sero positive, CCP + RA. Excellent early response to Enbrel (started 5 weeks ago).Expec t to see further improvemen t. Continue EnbrelCont MTX 20 mg/wk.May try slow taper of prednisone : 5 mg 3 weeks, 4 mg 3 weeks etc. f/u 3 mo, sooner if needed. Bilateral knee pain 1187 966418 5849661 M25.561 M25.562 Bilat knee involvemen t with RA.Some improvemen t with Enbrel, but persisting swelling. If still symptomati c at next visit will check x ray and will advise local injeciton. 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 Still synovitis both knees. May see further improvemen t. Continue EnbrelCont MTX 20 mg/wk.May continue slow taper of prednisone : 3 mg Knee joint effusion 2022 29712 M25.462 Inflammato ry effusion bilat l > R. Local inj today on L. Return 2 weeks for R injection. 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 Return in 6 months for wellness visit or sooner as needed. Active or passive immunization 445584170 Z23 [id number] Aguila Ferreira MD Rheumatol [facility], [address] [address] 11/16/2018 10:54:20 11/17/2018 14:13:01 Rheumatoid arthritis 85803976 M05.69 Sero positive, CCP + RA.Good response [...] me know.RV in January. 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 [id number] Aguila Ferreira MD Rheumatol [facility], [address] [place] [address] 01/26/2019 09:10:46 01/26/2019 15:19:02 Rheumatoid arthritis 24447064 M05.69 Sero positive, CCP + RA.On MTX. [...] consider change from Enbrel Long-term drug therapy 597068147 Z79.899 On retirement MTX; Needs lab monitoring ; CBC, LFT's, creat all OK 10/27/18. Rpeat today. [id number] Aguila Ferreira MD Rheumatol [place], [address] [place] [address] 05/03/2019 10:09:28 05/04/2019 06:00:31 Active or passive immunization 546787697 Z23 flu shot today.Disc ussed should get Shingrix. Rheumatoid arthritis 698 51461 M05.69 Sero positive, CCP + RA.On MTX. Good response to Enbrel, but with prednisone taper to just 1 mg, clearly had recurrent synovitis. We boosted prednisone to just 2 mg and, whether or not this was responsibl e, doing MUCH better today.Cont inue EnbrelCont MTX 20 mg/wk.Cont inue prednisone 2 mg/d indefinite ly. Update labs 3 mo.Return 6 mo or sooner if needed. [id number] Aguila Ferreira MD Rheumatol [place], [address] [address] 11/11/2019 10:46:00 11/11/2019 11:53:47 Rheumatoid arthritis 02039552 M05.69 Sero positive, CCP + RA.On MTX. Good response to Enbrel, but with prednisone taper to just 1 mg, clearly had recurrent synovitis. We boosted prednisone to just 2 mg and, whether or not this was responsibl e, doing MUCH better .Continue EnbrelCont MTX 20 mg/wk.Cont inue prednisone 2 mg/d indefinite ly. Update labs 3 mo. Knee joint effusion 2022 61857 M25.462 Inflammato ry effusions in past. L knee injected 1 year ago with sustained benefit, but some sxs recurring. Will try to hold off on injection, but if sxs progress, should call and we can schedule injection. 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 In view of viral epidemic, risk of exposure at routine lab follow up for DMARD medication probably outweighs benefit of labs. Hold for 3 mo. RV 3 mo. [id number] Amanda Walsh , [facility], OFFICE [address] [place] [address] 11/19/2019 15:32:13 11/22/2019 15:26:16 SARS-CoV-2 398136853 U07.1 Pt +COVID19, began experienci ng symptoms on 11/17/19. Symptoms have improved today, pt instructed to call the office if she develops any SOB or worsening symptoms. Pt has been informed of return to work guidelines , she reports she is not going back until December 01 or . Pt has discontinu ed Enbrel and Methotrexa te for [address] Ferreira. [id number] Aguila Ferreira MD Rheumatol [place], [address] [place] [address] 04/04/2020 10:49:11 04/06/2020 06:52:08 Rheumatoid arthritis 91779131 M05.69 Sero positive, CCP + RA.On MTX. [...] reducing dose of MTX. Long-term drug therapy 206453659 Z79.899 On retirement MTX; Needs lab monitoring ; CBC, LFT's, creat all OK on January.Kristina bradley Apr. RV 3 mo. [id number] Amanda RIVERS, [facility], OFFICE [address] [place] [address] 05/20/2020 07:17:29 05/22/2020 12:04:36 Active or passive immunization 115986826 Z23 [id number] Aguila Ferreira MD Rheumatol [facility], [facility] [address] [place] [address] 08/18/2020 09:10:15 08/18/2020 14:07:30 Rheumatoid arthritis 73421561 M06.9 Sero positive, CCP + RA. On MTX. Good response to Enbrel, now off prednisone entirely. Continue Enbrel Reduce MTX to 15 mg/wk mg/wk Acquired thrombocytopenia 96783721 D69.6 Borderline low plts. Trend has been downward over past year. Will reduce dose MTX, update labs in a month. Long-term drug therapy 789887069 Z79.899 MTX. LFTs OK. follow [id number] Amanda RIVERS, [facility], OFFICE [address] [place] [address] 12/07/2020 09:13:26 12/08/2020 09:35:19 Adult health examination 402961210 Z00.00 Counseling 797121670 Z71 .9 Depression screening 171 424558 Z13.31 depression screening tool administer ed, entered into emr, scored and discussed, time greater than 7.5 minutes Advance di rective discussed with patient 237782690 Z71.89 MOLST filled out today Screening mammography 24 008850 Z12.31 Screening for malignant neoplasm of colon 094341770 Z12.11 Rheumatoid arthritis 698 67225 M06.9 On Methotrexa te and Enbrel, follows with [facility] rheumatolo gy Ex-smoker 7788496 Z87.89 1 [id number] Monse Mendiola MD Rheumatol [facility], [address] [address] 12/14/2020 07:51:24 12/14/2020 18:08:22 Rheumatoid arthritis 52693155 M06.9 Sero positive, CCP + RA. On MTX. Good response to Enbrel, now off prednisone entirely. Continue Enbrel and mtx. Trying to consolidat e remission then will try to wean down mtx slowly or space out Enbrel. Check labs for disease activity and medication toxicity (standing orders). Patient got COVID vaccine and PCV-13. RTC in 4 months or sooner if needed. Acquired thrombocytopenia 90378868 D69.6 Borderline low plts. Trend has been downward over past year. Monitor. Long-term drug therapy 241300857 Z79.899 On mtx and Enbrel. Monitor labs. Continue folic acid. Patient to hold mtx and enbrel if fever or any sign of infection. 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 not visually significan t. monitor annually. Presbyopia 04552564 H52. 4 [id number] Monse Mendiola MD Rheumatol [facility], [address] [address] 04/16/2021 09:31:17 04/16/2021 10:36:14 Rheumatoid arthritis 74166927 M06.9 Sero positive, CCP + RA. On [...] or sooner if needed. Long-term drug therapy 389169176 Z79.899 On mtx and Enbrel. Monitor labs. Continue folic acid. Patient to hold mtx and enbrel if fever or any sign of infection. Patient needs a full skin exam, she will check with pcp on this or she will call for a dermatolog y referral. [id number] Amanda Walsh , [facility], OFFICE [address] [place] [address] 05/25/2021 07:59:03 05/27/2021 14:59:06 Active or passive immunization 758047873 Z23 [id number] Monse Mendiola MD Rheumatol [facility], [address] [address] 08/27/2021 09:19:59 08/27/2021 11:46:26 Rheumatoid arthritis 94674318 M06.9 Sero positive, CCP + RA. On [...] or sooner if needed. Long-term drug therapy 016001885 Z79.899 On mtx and Enbrel. Monitor labs. Continue folic acid, leucovorin . Patient to hold mtx and enbrel if fever or any sign of infection. Patient needs a full skin exam, she will check with pcp on this or she will call for a dermatolog y referral. [id number] Monse Mendiola MD Rheumatol [address] [address] 12/20/2021 09:38:37 12/20/2021 13:33:30 Rheumatoid arthritis 65657245 M06.9 Sero positive, CCP + RA. On [...] or sooner if needed. Long-term drug therapy 210771988 Z79.899 On mtx and Enbrel. Monitor labs. Continue folic acid, leucovorin . Patient to hold mtx and enbrel if fever or any sign of infection. Patient had recently a full skin exam at her PCP's office, it was normal per the patient. [id number] Amanda RIVERS, [facility], OFFICE [address] [place] [address] 12/10/2021 10:03:10 12/11/2021 09:07:39 Adult health examination 704536377 Z00.00 Counseling 095631833 Z71 .9 Depression screening 171 803314 Z13.31 depression screening tool administer ed, entered into emr, scored and discussed, time greater than 7.5 minutes Rheumatoid arthritis 698 12625 M06.9 On Methotrexa te and Enbrel, follows with [facility] rheumatolo gy Ex-smoker 2170449 Z87.89 1 LDCT chest 12/28/20- nml, no nodules. Pt declines annual repeat LDCT due to copay, would like to repeat every 2 years at this time Cat bite 751986555 W55.0 1XD Pt bit by her own cat, went to , is on antibiotic s with improvemen t in symptoms, tetanus is UTD, cat is UTD on vaccines. Will contact the office for any worsening symptoms [id number] Monse Mendiola MD Rheumatol [place], [facility] [address] [place] [address] 04/05/2022 10:30:41 04/05/2022 11:34:26 Rheumatoid arthritis 44252206 M06.9 Sero positive, CCP + RA. On [...] or sooner if needed. Long-term drug therapy 466193662 Z79.899 On mtx and Enbrel. Monitor labs. [...] mcnally reinforced , patient verbalizes understand ing. [id number] Davida Chance, OD [facility], [facility] [address] [place] [address] 06/14/2022 09:43:56 06/14/2022 17:09:04 Nuclear senile cataract 700870988 H25.13 mild OD>OS, pt ed. not visually significan t. monitor annually. Presbyopia 81153875 H52. 4 Blepharitis 93403562 H01 .9 pt ed. recommend lid scrub qd, hot compress qd, AT 2-4 x per day prn. [id number] Amanda Walsh , [facility], OFFICE [address] [place] [address] 04/24/2023 09:50:27 04/26/2023 22:39:19 Adult health examination 645647927 Z00.00 Depression screening 171 859730 Z13.31 depression screening tool administer ed Screening for alcohol abuse 232806296 Z13.39 Alcohol use screening tool administer ed Screening for malignant neoplasm of colon 812185638 Z12.11 declines colo - will do stool kit Screening mammography 24 503861 Z12.31 Ex-smoker 9191593 Z87.89 1 LDCT chest 01/23/22, pt declines annual repeat LDCT due to copay, would like to repeat every 2 years at this time Active or passive immunization 287298399 Z23 flu - getting today Rheumatoid arthritis 698 96074 M06.9 On Methotrexa te and Enbrel, follows with [facility] Rheumatolo gy Hyperlipidemia 50374795 E78.5 Mild, recommend dietary modificati on, reassess yearly [id number] Davida Chance, OD [facility], [address] [place] [address] 08/25/2023 13:03:22 08/26/2023 14:15:28 Nuclear senile cataract 571055248 H25.13 mild OD>OS, pt ed. not visually significan t. monitor annually. Presbyopia 53231354 H52. 4 Nevus of c horoid of left eye 4890235062 29175 D31.32 appears benign, no risk factors, pt ed. baseline photo today. Macular drusen 072037690 H35.362 few OS, pt ed. Observe. monitor here annually. 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 Health Concerns Section Related Observation LastModified by Organization Detai ls LastModified Time None Recorded Concern Status LastModified by Organization Details LastModified Time None Recorded Advance Directives Directive N: Payers Encounter Date Sequence Insurance Name Policy Number Policy Bond Covered Member ID Bond Member ID Guarantor Name 12/20/2021 2 [place]: [employer] 104 Vianey Shepard [id number] Vianey Shepard 12/20/2021 1 [place]IC[place]: [employer] Vianey Shepard [id number] Vianey Shepard 04/05/2022 2 [place]: [employer] 104 Vianey Shepard [id number] Vianey Shepard 04/05/2022 1 MEDICARE B-[place]: [facility] Vianey Shepard [id number] 2 Vianey Shepard 06/14/2022 2 [facility]: [employer] 104 Vianey Shepard [id number] Vianey Shepard 06/14/2022 1 [place]: [facility] SERVICES Vianey Shepard [id number] 2 Vianey Shepard 04/24/2023 2 [facility]: [employer] 104 Vianey Shepard [id number] Vianey Shepard 04/24/2023 1 [place]: [facility] Vianey Shepard [id number] 2 Vianey Shepard 08/25/2023 2 [facility]: [employer] 104 Vianey Shepard [id number] Vianey Shepard 08/25/2023 1 [place]: [facility] Vianey Shepard [id number] 2 Vianey Shepard Notes Date Note Type [...] fully treated. Labs reviewed. Sven Mendiola MD [address] [place] [address], [phone], [facility] 12/20/2021 10:25:10 04/05/2022 text/html Patient is 66 [...] fully treated. Labs reviewed. Sven Mendiola MD [address] [place] [address], [phone], [facility] 04/05/2022 11:27:53 06/14/2022 text/html CataractReported bypatient.Location:bi lateral Quality:painless Severity:mild Onset/Timing:gradualC omprehensive Eye ExamReported bypatient.Quality:1 year exam; no blurred vision Context:currently wears glasses Modifying factors:wears glasses for distance and near Associated Symptoms:no redness; no itching; no dryness;floaters tearing sometimes, once per week or less, OD. no eye pain. Davida Contehcherry, OD [address] [place], [address], [facility] 06/14/2022 14:41:27 04/24/2023 text/html Risk Assessment and Lifestyle Change Counseling 65+ (Medicare)Reported bypatient.Coronary Artery Disease Risk Assessment:Family History of Coronary Artery Disease(mother- [place]); No personal history of diabetes; No history [...] states has at home, will upload into [facility] mammo 05/14/21- nml, will repeat this yearLDCT chest 01/23/22- unchanged small nodules, recommended repeat annually but pt doesn't want to do so annually due to copay, will do so every other year (next year)IFOBT done 03/2021 was normalPt had ECHO and PFT done with citizenship teacher which were normalGoes to rheumatology for RA, taking Enbrel and Methotrexate.Has 40+ pack year history, has quit smokingHas not drank alcohol since 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 Davida Chance, OD [address] [place] [address], [phone], [facility] 08/25/2023 16:10:57 OBGyn Episode No OBEpisode recorded.
--- NOTE | 2025-01-05 09:18 | A.OFFVIS_ITS ---
Vital Signs 01/05/25 09:29 Height 5 ft 11 in Weight 198 lb 13.711 oz BMI 27.7 BP 122/80 Blood Pressure Location Rt brachial Position Sitting Pulse 72 Pulse Source Pulse Oximeter Pulse Oximetry (%) 98 Oxygen Delivery Method Room Air Intake Visit Reasons: RA Intake Note: Patient presents for RA follow up. Allergies No Known Allergies Allergy (Verified 01/05/25 09:22) Medication List - Last Reconciled 01/05/25 by Afshan Wilson MD Actemra ACTPen (tocilizumab) 162 mg (0.9 mL) subcut Q2W NS ascorbic acid (vitamin C) 1 g PO DAILY calcium carbonate (Calcium 600) 600 mg PO DAILY cholecalciferol (vitamin D3) 50 mcg PO DAILY coenzyme Q10 (Ultra CoQ10) 300 mg PO DAILY folic acid 0.8 mg PO DAILY bagmntma-[id number]-[id number]-C-turner-bor 500-416.6-20 mg tabs PO glucosamine HCl 1,500 mg PO DAILY ibuprofen 600 mg PO BID PRN leucovorin calcium 10 mg (2 x 5 mg) PO QWEEK methotrexate sodium 20 mg (8 x 2.5 mg) PO QWEEK 90 days omega [id number]-wxr-[id number]-fish oil 1,000 (120-180) mg (Fish Oil) 1 cap PO DAILY prednisone 10 mg (2 x 5 mg) PO DAILY 90 days vitamin E (dl, acetate) 180 mg PO DAILY HPI Comments Details: Patient is a 69-year-old female with seropositive rheumatoid arthritis and polyarticular osteoarthritis here today for follow up Interval History: Patient last seen 06/01/[address] Rodas. At that time she was following up for her seropositive rheumatoid arthritis on Enbrel 50 mg weekly, methotrexate 20 mg weekly, leucovorin 10 mg weekly, and prednisone 10 mg daily. She reported that she felt about 50% better since the last visit but continued to complain of bilateral knee pain, shoulder pain as well as stiffness with difficulty washing her hair. On exam she continued to have multiple tender and swollen joints with significantly elevated inflammatory markers. Her medication was changed from Enbrel to Actemra. 12/25 urgent care visit for abscess L external ear from cyst. Abscess lanced & drained, cultured. Started on Doxycycline 100mg BID x7d and probiotic. Has been off Actemra and methotrexate for 2 weeks Joints doing well overall Notes improvement on the new combination Today having left knee pain and swelling Rheumatologic History: ++RF+++CCP dx 2018 MTX started 2018 and enbrel was added afterwards Initial history: This is a 67-year-old female who presents for evaluation of rheumatoid arthritis. 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 RA was diagnosed in 2018 she was initially started on methotrexate with incomplete response then Enbrel was added. Significant improvement on Enbrel and methotrexate was tapered to 7.5 mg weekly. Patient feels well overall with occasional morning stiffness of her hands. She has stiffness of her knees worse on the left when she stands up after sitting down for a while. Patient smoked for about 40 years. She quit in 2018 when diagnosed with RA. She mentions getting a low-dose CT chest every year which does not show any evidence of malignancy but shows some emphysematous changes. She mentions having some slowly progressively worsening shortness of breath with climbing 2 flights of stairs over the last 2-3 years. Denies cough. 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 therapy SARS-CoV-2 positive Rheumatoid arthritis Surgical History History of tonsillectomy Hx of tooth extraction Family History Mother Diabetes Hypertension Myocardial infarct Father Rheumatoid arthritis Social History Household Members: None Alcohol intake: never Patient Tobacco Use Status: Never used Tobacco 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al status: employed and retired 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 Review of Systems Const Details: Review of Systems Constitutional: Denies fever, chills, weight loss ENT: Denies vision changes, eye pain or eye redness, dental caries, dry mouth GI: Denies nausea, vomiting, diarrhea, abdominal pain, change in BM Pulm: Denies SOB, GRIMALDO, hemoptysis, wheezing Cards: Denies chest pain, palpitations Skin: Denies Raynaud's, rash, nail changes, photosensitivity, PRINTING GRAY [employer]OTH TENDER: Denies headaches, weakness, paresthesias, recurrent falls MSK: as per HPI All other systems reviewed and are unremarkable except noted above Physical Exam Vital Signs: Last Vital Signs Pulse 72 01/05/25 09:29 BP 122/80 01/05/25 09:29 Pulse Ox 98 01/05/25 09:29 Oxygen Delivery Method Room Air 01/05/25 09:29 BMI result Body Mass Index 27.7 Vital signs reviewed Physical Examination CONSTITUITIONAL Patient alert and cooperative. Well appearing and in no apparent painful distress HEENT Conjunctiva and sclera clear. ?No lymphadenopathy. ? CHEST/RESPIRATORY SYSTEM Normal respiratory effort and able to speak in complete sentences. ?Clear to auscultation bilaterally. ?No crackles, rales, rhonchi, wheezes heard. CARDIAC SYSTEM Regular rate and rhythm. ?S1 and S2 heard no murmurs. ?Radial pulses intact bilaterally MSK Hands: ?Able to make a fist. No synovitis noted to the MCPs, PIPs or DIPs. ?No tenderness to palpation of these joints. Bilateral squarring of the 1st [facility] Herbeden's nodes noted Wrists: ?Full range of motion at the wrists without pain. ?No tenderness to palpation or synovitis noted to the wrists. Elbows: Full range of motion without pain. No tenderness, weakness, swelling, increased warmth or erythema. Shoulders: Full range of active range of motion without pain of the right shoulder. Decreased ROM on the left shoulder. No TTP of the AC joints or subacromial bursae Knees: ?Full range of motion bilaterally. Left knee with mild swelling ithout appreciable effusion. Swelling noted more medially. TTP of the left pes anserine bursa as well. Crepitations felt Right knee no swelling or TTP Ankles: Full range of motion. ?No tenderness, swelling, increased warmth or erythema.? Feet: ?Negative squeeze test. ?No tenderness to palpation or swelling of the MTPs. Tender points:?No tenderness to palpation of the bilateral trapezius, supraspinatus, greater trochanters, anterior costochondral junctions, bilateral gluteal areas, bilateral suboccipital muscle insertions SKIN Skin intact without rashes. Results Reviewed Results Reviewed: Laboratory Tests 05/28/24 08/27/24 12/31/24 08:22 09:05 08:32 WBC 9.3 RBC 4.63 Hgb 14.2 Hct 44.6 Plt Count 270 ESR 27 H 34 H Sodium 142 Potassium 4.0 Chloride 107 Carbon Dioxide 27 BUN 21 H Creatinine 0.82 AST 17 ALT 13 Alkaline Phosphatase 73 C-Reactive Protein 3.39 H 0.53 H 2.69 H Laboratory Tests 09/18/22 13:10 Rheumatoid Factor 70.9 H Cycl Citrul Peptide IgG >250 H Laboratory Tests 12/31/24 08:32 Hepatitis A IgM Ab Nonreactive Hep Bs Antigen Negative Hep Bs Antibody NONREACTIVE Hep B Core Total Ab Nonreactive Hepatitis C Ab (EIA) Nonreactive TB Test (T-Spot) Com Negative Assessment & Plan Assessment & Plan (1) Rheumatoid arthritis: Comment: ++RF+++CCP dx 2017 MTX started 2017 and enbrel was added afterwards Enbrel stopped 05/2024 due to secondary non response Actemra started. MTx continued Code(s): M06.9 - Rheumatoid arthritis, unspecified Category: Medical Qualifiers: Rheumatoid arthritis location: multiple sites Rheumatoid factor presence: without rheumatoid factor Qualified Code(s): M06.09 - Rheumatoid arthritis without rheumatoid factor, multiple sites Plan: #Seropositive RA Patient is a 69-year-old female with seropositive rheumatoid arthritis here today for follow up. Currently in remission despite not being on her medication for the past 2 weeks due to an ear infection/abscess. Inflammatory markers are elevated but this could be related to her recent infection. She just completed antibiotics this past weekend. We will continue her current medication regimen and re-evaluate for tapering of her prednisone in 4 months Plan - Actemra 162mg SC every 2 weeks - Mtx 20mg weekly - Folic acid 0.8mcg daily - Leucovorin 10mg weekly - Prednisone 10mg daily - RTC 4 months - Labs before visit: CBC, CMP, ESR, CRP, lipid panel (2) Polyarticular osteoarthritis: Code(s): M15.9 - Polyosteoarthritis, unspecified Plan: #Polyarticular OA Patient with polyarticular osteoarthritis. Right now her main issues her knees. Specifically her left knee. We will check x-rays and make a management decision based on that Plan - XR bilateral knees (3) Screening for osteoporosis: Code(s): Z13.820 - Encounter for screening for osteoporosis Plan: #Screening for osteoporosis Patient due for osteoporosis screening Plan - DEXA Scan - Vit D at next blood draw (4) Encounter for methotrexate monitoring: Code(s): Z51.81 - Encounter for therapeutic drug level monitoring; Z79.631 - senior living (current) use of antimetabolite agent Plan: #Long-term Current Use of Methotrexate Discussed with patient the benefits and risks of methotrexate for managing their rheumatic condition Benefits include reduced pain, reduced mortality, maintenance of remission and reduction of flares Risks include oral ulcers, photosensitivity, hepatotoxicity, hematologic toxicity, pneumonitis, flu-like symptoms (especially day after administration), nodulosis, lymphomas ? Limit alcohol and avoid Bactrim ? Monitoring: ?CBC, BMP, LFTs every 3-4 months and hepatitis serologies as needed (5) Encounter for monitoring tocilizumab therapy: Code(s): Z51.81 - Encounter for therapeutic drug level monitoring; Z79.620 - senior living (current) use of immunosuppressive biologic Plan: #Long-term Use of Tocilizumab Discussed the risks and benefits of tocilizumab with the management of this patient's rheumatic condition. ? Benefits include decreased pain, improved mortality, improved quality of life Risks include LFT abnormalities, elevated triglycerides, GI perforations Contraindicated in a patient with history of diverticulitis Monitoring: ?CBC, CMP, triglycerides Plan I spent 35 minutes reviewing the record and labs, taking a history, examining the patient, discussing the treatment plan, ordering diagnostic work up and documenting in the medical record Orders: Orders Erythrocyte Sedimentation Rate 4 Months M06.09 - Rheumatoid arthritis without rheumatoid factor, multiple sites Vitamin D 25-OH Total 4 Months E55.9 - Vitamin D deficiency, unspecified XR knee RT 3V Today M17.0 - Bilateral primary osteoarthritis of knee XR knee LT 3V Today M17.0 - Bilateral primary osteoarthritis of knee XR DEXA axial skeleton Today M06.09 - Rheumatoid arthritis without rheumatoid factor, multiple sites, M81.0 - Age-related osteoporosis without current pathological fracture Complete Blood Count Auto Diff 4 Months M06.09 - Rheumatoid arthritis without rheumatoid factor, multiple sites Comprehensive Met. Panel 4 Months M06.09 - Rheumatoid arthritis without rheumatoid factor, multiple sites C Reactive Protein 4 Months M06.09 - Rheumatoid arthritis without rheumatoid factor, multiple sites Lipid Panel 4 Months M06.09 - Rheumatoid arthritis without rheumatoid factor, multiple sites Medications: New folic acid 0.8 mg PO DAILY 90 tabs 1RF M06.09 - Rheumatoid arthritis without rheumatoid factor, multiple sites Changed From leucovorin calcium 10 mg (2 x 5 mg) PO QWEEK 24 tabs 1RF M06.09 - Rheumatoid arthritis without rheumatoid factor, multiple sites To leucovorin calcium 10 mg (2 x 5 mg) PO QWEEK 90 days 26 tabs 1RF M06.09 - Rheumatoid arthritis without rheumatoid factor, multiple sites Refilled Actemra ACTPen (tocilizumab) 162 mg (0.9 mL) subcut Q2W 2 mL 4RF NS M06.09 - Rheumatoid arthritis without rheumatoid factor, multiple sites prednisone 10 mg (2 x 5 mg) PO DAILY 90 days 180 tabs 1RF M06.09 - Rheumatoid arthritis without rheumatoid factor, multiple sites methotrexate sodium 20 mg (8 x 2.5 mg) PO QWEEK 90 days 104 tabs 1RF M06.09 - Rheumatoid arthritis without rheumatoid factor, multiple sites Coding Level of Care Code Est Pt Level 4 (26582) Complex EM visit Add On G2211 Diagnoses Rheumatoid arthritis of multiple sites with negative rheumatoid factor M06.09 Rheumatoid arthritis location: multiple sites Rheumatoid factor presence: without rheumatoid factor Polyarticular osteoarthritis M15.9 Screening for osteoporosis Z13.820 Encounter for methotrexate monitoring Z51.81; Z79.631 Encounter for monitoring tocilizumab therapy Z51.81; Z79.620
[2025-01-05 09:29] VITALS: BP 122/80; PULSE 72; O2SAT 98; BMI 27.7
== END 2025-01-05 10:23 | disposition home or self-care (01) ==
LOC: HO.RHE 08:21
PROVIDERS: PCP Physician Assistant; Visit Provider Student in an Organized Health Care Education/Training Program
DX: M06.09 Rheumatoid arthritis without rheumatoid factor, multiple sites (principal); M15.9 Polyosteoarthritis, unspecified; Z13.820 Encounter for screening for osteoporosis; Z51.81 Encounter for therapeutic drug level monitoring; Z79.631 Long term (current) use of antimetabolite agent; Z79.620 Long term (current) use of immunosuppressive biologic
CPT/HCPCS: 99214; G2211

== ENCOUNTER → 2025-01-05 08:21 | Outpatient (BNVA) | payer MEDICARE, BC, SELFPAY | PROVIDERS: PCP Physician Assistant; Visit Provider Student in an Organized Health Care Education/Training Program | DX: M06.09 Rheumatoid arthritis without rheumatoid factor, multiple sites (principal); M15.9 Polyosteoarthritis, unspecified; Z13.820 Encounter for screening for osteoporosis; Z51.81 Encounter for therapeutic drug level monitoring; Z79.631 Long term (current) use of antimetabolite agent; Z79.620 Long term (current) use of immunosuppressive biologic | CPT/HCPCS: 99212 ==

== ENCOUNTER 2025-01-27 11:59 | Outpatient (REF) | payer MEDICARE, BC, SELFPAY ==
--- NOTE | ~2025-01-27 | XR_ITS ---
EXAMINATION: XR BILATERAL HIPS 2 VIEW. CLINICAL INFORMATION: M25.551 - Pain in right hip, long-term prednisone, acute bilateral groin pain COMPARISON: None available. TECHNIQUE: AP and frog-leg view, bilateral hips FINDINGS: Right hip: There is moderate axial joint space narrowing involving the right hip joint. There are moderate to large marginal osteophytes involving the femoral head and acetabulum. Patchy sclerotic changes are evident in the femoral head. Left hip: There is mild axial joint space narrowing. Small marginal osteophytes involve acetabulum and femoral head. No other abnormality evident. XR/XR hips ALONZO min 3V IMPRESSION: Moderate degenerative changes in the right hip joint and axial joint space narrowing is consistent with secondary osteoarthritis. Patchy sclerosis in the right femoral head raises concern for avascular necrosis. Mild degenerative changes of the left hip joint consistent with secondary osteoarthritis. Electronically signed by: Kuldip Garcia MD 01/27/2025 12:56 PM EDT
--- NOTE | ~2025-01-27 | XR_ITS ---
CLINICAL HISTORY: M17.0 - Bilateral primary osteoarthritis of knee 3 view left knee Comparison: None provided Findings: Bones intact. No dislocations. There are changes of severe osteoarthritis most pronounced in the medial compartment.. No joint effusion. No radiopaque foreign body. IMPRESSION: 1. No acute findings. This document has been electronically signed by: Jon Lares MD on 01/28/2025 08:53:21
--- NOTE | ~2025-01-27 | XR_ITS ---
CLINICAL HISTORY: M17.0 - Bilateral primary osteoarthritis of knee 3 view right knee Comparison: None provided Findings: Bones intact. No dislocations. There are changes of osteoarthritis most pronounced in the lateral compartment. No joint effusion. No radiopaque foreign body. IMPRESSION: 1. No acute findings. This document has been electronically signed by: Jon Lares MD on 01/28/2025 09:01:46
== END 2025-01-27 12:00 | disposition home or self-care (01) ==
LOC: HO.XRAY 11:59
PROVIDERS: Absent Provider Internal Medicine Rheumatology; PCP Physician Assistant; Visit Provider Student in an Organized Health Care Education/Training Program
DX: M25.551 Pain in right hip (principal); M25.552 Pain in left hip; M17.0 Bilateral primary osteoarthritis of knee; Z79.52 Long term (current) use of systemic steroids
CPT/HCPCS: 73522; 73562

== ENCOUNTER → 2025-01-27 12:06 | Outpatient (BNV) | payer MEDICARE, BC, SELFPAY | PROVIDERS: Absent Provider Internal Medicine Rheumatology; PCP Physician Assistant; Visit Provider Radiology Diagnostic Radiology | DX: M17.0 Bilateral primary osteoarthritis of knee (principal) | CPT/HCPCS: 73562 ==

== ENCOUNTER 2025-02-02 09:49 | Outpatient (AMB) | payer MEDICARE, BC, SELFPAY ==
--- NOTE | 2025-02-02 10:07 | MHC.OFFVIS ---
Vital Signs 02/02/25 10:14 Height 5 ft 11 in Weight 190 lb 14.725 oz BMI 26.6 BP 120/80 Blood Pressure Location Lt brachial Position Sitting Pulse 88 Pulse Source Pulse Oximeter Pulse Oximetry (%) 98 Oxygen Delivery Method Room Air Intake Visit Reasons: hip pain Intake Note: Patient presents for hip pain. Patient c/o RT hip pain. Allergies No Known Allergies Allergy (Verified 02/02/25 10:13) HPI Comments Details: Patient is a 69-year-old female with seropositive rheumatoid arthritis and polyarticular osteoarthritis here today for urgent visit for hip pain Interval History: Patient last seen 01/05/25 with ma - had recent infection: Abscess left external ear from cyst, 12/25, with completion of doxycycline course - holding Actemra and methotrexate - joints were doing well on this regimen - left knee pain and swelling - hip pain - XRs ordered - No changes to medication Since then Hip XR shows possible AVN Today, - Still with left knee pain - Doing well overall with her joints - On Mtx and Actemra Rheumatologic History: ++RF+++CCP dx 2018 MTX started 2018 and enbrel was added afterwards Initial history: This is a 67-year-old female who presents for evaluation of rheumatoid arthritis. 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 RA was diagnosed in 2018 she was initially started on methotrexate with incomplete response then Enbrel was added. Significant improvement on Enbrel and methotrexate was tapered to 7.5 mg weekly. Patient feels well overall with occasional morning stiffness of her hands. She has stiffness of her knees worse on the left when she stands up after sitting down for a while. Patient smoked for about 40 years. She quit in 2018 when diagnosed with RA. She mentions getting a low-dose CT chest every year which does not show any evidence of malignancy but shows some emphysematous changes. She mentions having some slowly progressively worsening shortness of breath with climbing 2 flights of stairs over the last 2-3 years. Denies cough. 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 Current Rheumatology Medication(s): Actemra 162 mg every 2 weeks Leucovorin 10 mg every week Folic acid 800mcg daily Methotrexate 20 mg every week Prednisone 10 mg everyday [facility] Medical History (Updated 01/28/25 @ 22:29 by Ricco Preciado MD) Abscess of external ear, left Reactive depression (situational) On superintendent terminal drug therapy SARS-CoV-2 positive Rheumatoid arthritis Surgical History History of tonsillectomy Hx of tooth extraction Family History Mother Diabetes Hypertension Myocardial infarct Father Rheumatoid arthritis Social History Household Members: None Alcohol intake: never Patient Tobacco Use Status: Never used Tobacco 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al status: employed and retired 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 Review of Systems Const Details: Review of Systems Constitutional: Denies fever, chills, weight loss ENT: Denies vision changes, eye pain or eye redness, dental caries, dry mouth GI: Denies nausea, vomiting, diarrhea, abdominal pain, change in BM Pulm: Denies SOB, GRIMALDO, hemoptysis, wheezing Cards: Denies chest pain, palpitations Skin: Denies Raynaud's, rash, nail changes, photosensitivity, [employer]: Denies headaches, weakness, paresthesias, recurrent falls MSK: as per HPI All other systems reviewed and are unremarkable except noted above Physical Exam Vital Signs: Last Vital Signs Pulse 88 02/02/25 10:14 BP 120/80 02/02/25 10:14 Pulse Ox 98 02/02/25 10:14 Oxygen Delivery Method Room Air 02/02/25 10:14 BMI result Body Mass Index 26.6 Vital signs reviewed Physical Examination CONSTITUITIONAL Patient alert and cooperative. Well appearing and in no apparent painful distress HEENT Conjunctiva and sclera clear. ?No lymphadenopathy. ? CHEST/RESPIRATORY SYSTEM Normal respiratory effort and able to speak in complete sentences. ?Clear to auscultation bilaterally. ?No crackles, rales, rhonchi, wheezes heard. CARDIAC SYSTEM Regular rate and rhythm. ?S1 and S2 heard no murmurs. ?Radial pulses intact bilaterally MSK Hands: ?Able to make a fist. No synovitis noted to the MCPs, PIPs or DIPs. ?No tenderness to palpation of these joints. Bilateral squarring of the 1st [facility] Herbeden's nodes noted Wrists: ?Full range of motion at the wrists without pain. ?No tenderness to palpation or synovitis noted to the wrists. Elbows: Full range of motion without pain. No tenderness, weakness, swelling, increased warmth or erythema. Shoulders: Full range of active range of motion without pain of the right shoulder. Decreased ROM on the left shoulder. No TTP of the AC joints or subacromial bursae Knees: ?Full range of motion bilaterally. Left knee with mild swelling medially without appreciable effusion. TTP of the left pes anserine bursa as well. significant Crepitations felt Right knee no swelling or TTP. Minimal crepitations felt Ankles: Full range of motion. ?No tenderness, swelling, increased warmth or erythema.? Feet: ?Negative squeeze test. ?No tenderness to palpation or swelling of the MTPs. Tender points:?No tenderness to palpation of the bilateral trapezius, supraspinatus, greater trochanters, anterior costochondral junctions, bilateral gluteal areas, bilateral suboccipital muscle insertions SKIN Skin intact without rashes. Results Reviewed Results Reviewed: XR Bilateral Hips 01/2025 FINDINGS: Right hip: There is moderate axial joint space narrowing involving the right hip joint. There are moderate to large marginal osteophytes involving the femoral head and acetabulum. Patchy sclerotic changes are evident in the femoral head. Left hip: There is mild axial joint space narrowing. Small marginal osteophytes involve acetabulum and femoral head. No other abnormality evident. IMPRESSION: Moderate degenerative changes in the right hip joint and axial joint space narrowing is consistent with secondary osteoarthritis. Patchy sclerosis in the right femoral head raises concern for avascular necrosis. Mild degenerative changes of the left hip joint consistent with secondary osteoarthritis. XR Left Knee 01/2025 Findings: Bones intact. No dislocations. There are changes of severe osteoarthritis most pronounced in the medial compartment.. No joint effusion. No radiopaque foreign body. IMPRESSION: 1. No acute findings. Assessment & Plan Assessment & Plan (1) Rheumatoid arthritis: Comment: ++RF+++CCP dx 2018 MTX started 2017 and enbrel was added afterwards Enbrel stopped 05/2024 due to secondary non response Actemra started. MTx continued Code(s): M06.9 - Rheumatoid arthritis, unspecified Category: Medical Qualifiers: Rheumatoid arthritis location: multiple sites Rheumatoid factor presence: without rheumatoid factor Qualified Code(s): M06.09 - Rheumatoid arthritis without rheumatoid factor, multiple sites Plan: #Seropositive RA Patient is a 69-year-old female with seropositive rheumatoid arthritis here today for follow up. Currently in remission. Given her new diagnosis of AVN of the hip we will begin our slow taper of prednisone. She has been on 10mg for years and my concern is there could be an element of adrenal insufficiency. With the slow taper we will allow the adrenals to natural wake up. Plan - Actemra 162mg SC every 2 weeks - Mtx 20mg weekly - Folic acid 0.8mcg daily - Leucovorin 10mg weekly - Prednisone: decrease by 1 mg every 2 weeks - RTC April 2025 - Labs before visit: CBC, CMP, ESR, CRP, lipid panel (2) Avascular necrosis of bone of right hip: Code(s): M87.051 - Idiopathic aseptic necrosis of right femur Category: Medical Plan: #AVN of the right hip Likely 2/2 steroid use Prednisone taper ordered Follow up with ortho (3) Polyarticular osteoarthritis: Code(s): M15.9 - Polyosteoarthritis, unspecified Plan: #Polyarticular OA Patient with polyarticular osteoarthritis. Knee OA confirmed Will consider treatment options such as gel injections in the future (4) Screening for osteoporosis: Code(s): Z13.820 - Encounter for screening for osteoporosis Plan: #Screening for osteoporosis Patient due for osteoporosis screening Plan - DEXA Scan (5) Encounter for methotrexate monitoring: Code(s): Z51.81 - Encounter for therapeutic drug level monitoring; Z79.631 - intermediate (current) use of antimetabolite agent Plan: #Long-term Current Use of Methotrexate Discussed with patient the benefits and risks of methotrexate for managing their rheumatic condition Benefits include reduced pain, reduced mortality, maintenance of remission and reduction of flares Risks include oral ulcers, photosensitivity, hepatotoxicity, hematologic toxicity, pneumonitis, flu-like symptoms (especially day after administration), nodulosis, lymphomas ? Limit alcohol and avoid Bactrim ? Monitoring: ?CBC, BMP, LFTs every 3-4 months and hepatitis serologies as needed (6) Encounter for monitoring tocilizumab therapy: Code(s): Z51.81 - Encounter for therapeutic drug level monitoring; Z79.620 - manager intermediate (current) use of immunosuppressive biologic Plan: #Long-term Use of Tocilizumab Discussed the risks and benefits of tocilizumab with the management of this patient's rheumatic condition. ? Benefits include decreased pain, improved mortality, improved quality of life Risks include LFT abnormalities, elevated triglycerides, GI perforations Contraindicated in a patient with history of diverticulitis Monitoring: ?CBC, CMP, triglycerides Plan I spent 40 minutes reviewing the record and labs, taking a history, examining the patient, discussing the treatment plan, ordering diagnostic work up and documenting in the medical record Coding Level of Care Code Est Pt Level 5 (37105) Complex EM visit Add On G2211 Diagnoses Rheumatoid arthritis of multiple sites with negative rheumatoid factor M06.09 Rheumatoid arthritis location: multiple sites Rheumatoid factor presence: without rheumatoid factor Avascular necrosis of bone of right hip M87.051 Polyarticular osteoarthritis M15.9 Screening for osteoporosis Z13.820 Encounter for methotrexate monitoring Z51.81; Z79.631 Encounter for monitoring tocilizumab therapy Z51.81; Z79.620
[2025-02-02 10:14] VITALS: BP 120/80; PULSE 88; O2SAT 98; BMI 26.6
--- OUTSIDE RECORDS SUMMARY | 2025-02-02 10:23 | XMS_ITS | Data Portability ---
Author Organization [facility], [facility] Address [address] [place] [address] Care Team Providers Care Edge Inker Name Role Phone MEDINAAMANDA Finney Primary Care Provider [facility] RHEUMATOLOGY Rheumatologi st Assessment Encounter Date Assessment [...] order through -IFOBT order set. 2022 023 [facility], [address] [place], [address], 4 12:25:58 Referral None recorded. Procedures None recorded. Surgeries None recorded. Imaging MAMMO, screening, tomosynthes is, bilateral - Note to Provider: Diag Mammo/US Breast/Guid ed Asp/Breast Bx as clinically indicated 2022 023 [facility] (Imaging), [address], [place], [address], 3 15:33:19 Medication Orders methotrexat e sodium 2.5 mg tablet 2021 022 [facility]/Pharmacy #[id number], [address] [place], [address], 10:25:00 leucovorin calcium 5 mg tablet 2021 022 [facility]/Pharmacy #[id number], [address] [place], [address], 10:25:00 Patient TargetsNo targets recorded. Patient Instructions Encounter Date Encounter Id Patient Instructions Last Modified By Organization Details Last Modified Time 04/24/2023 [id number] advance directives: care instructions Not available 04/24/2023 10:57:07 preventing falls : care instructions Not available 04/24/2023 10:57:07 hearing loss: care instructions Not available 04/24/2023 10:57:06 well visit, over 65: care instructions Not available 04/24/2023 10:57:07 Reason for Referral None Reported. Results Created Date Observation Date Name Description Value Unit Range Abnormal Flag Note LastModifiedBy Organization Detail LastModifiedTime 12/07/1912/06/2021 CBC WBC 4.68 K/ L 3.98-1 0.04 Not Available [address], [address], 12/06/2021 09:19:12 12/07/1912/06/2021 CBC RBC 4.48 M/ L 3.93-5 .22 Not Available [address], [address], 12/06/2021 09:19:12 12/07/1912/06/2021 CBC HGB 14.0 g/dL 11.2-1 5.7 Not Available [address], [address], 12/06/2021 09:19:12 12/07/1912/06/2021 CBC HCT 43.7 % 34.1-4 4.9 Not Available [address], [address], 12/06/2021 09:19:12 12/07/19 22 12/06/2021 CBC MCV 97.5 fL 79.4-9 4.8 high Not Available [address], [address], 12/06/2021 09:19:12 12/07/19 22 12/06/2021 CBC MCH 31.3 pg 25.6-3 2.2 Not Available [address], [address], 12/06/2021 09:19:12 12/07/19 22 12/06/2021 CBC MCHC 32.0 g/dL 32.2-3 5.5 low Not Available [address], [address], 12/06/2021 09:19:12 12/07/1912/06/2021 CBC plt 177 K/ L 182-36 9 low Not Available [address], [address], 12/06/2021 09:19:12 12/07/19 22 12/06/2021 CBC MPV 10.2 fL 9.4-12 .3 Not Available [address], [address], 12/06/2021 09:19:12 12/07/19 22 12/06/2021 CBC neut% 33.2 % 34.0-7 1.1 low Not Available [address], [address], 12/06/2021 09:19:12 12/07/19 22 12/06/2021 CBC neut# 1.55 1.56-6 .13 low Not Available [address], [address], 12/06/2021 09:19:12 12/07/1912/06/2021 CBC lymph % 48.3 % 19.3-5 1.7 Not Available [address], [address], 12/06/2021 09:19:12 12/07/19 22 12/06/2021 CBC lymph # 2.26 K/ L 1.18-3 .74 Not Available [address], [address], 12/06/2021 09:19:12 12/07/19 22 12/06/2021 CBC mono% 14.7 % 4.7-12 .5 high Not Available [address], [address], 12/06/2021 09:19:12 12/07/19 22 12/06/2021 CBC mono# 0.69 0.24-0 .56 high Not Available [address], [address], 12/06/2021 09:19:12 12/07/19 22 12/06/2021 CBC eo% 3.2 % 0.7-5. 8 Not Available [address], [address], 12/06/2021 09:19:12 12/07/19 22 12/06/2021 CBC eo# 0.15 0.04-0 .36 Not Available [address], [address], 12/06/2021 09:19:12 12/07/19 22 12/06/2021 CBC baso% 0.4 % 0.1-1. 2 Not Available [address], [address], 12/06/2021 09:19:12 12/07/19 22 12/06/2021 CBC baso# 0.02 0.00-0 .08 Not Available [address], [address], 12/06/2021 09:19:12 12/07/19 22 12/06/2021 CBC RDW-CV 15.3 % 11.7-1 4.4 high Not Available [address] [place], [address], 12/06/2021 09:19:12 12/07/19 22 12/06/2021 CBC Ig% 0.200 % 0.000- 1.500 Ig % >0.5 Indic ates possi ble Left Shift Not Available [address], [address], 12/06/2021 09:19:12 12/07/19 22 12/06/2021 CBC Ig# 0.010 0.000- 0.093 Not Available [address], [address], 12/06/2021 09:19:12 12/07/19 22 12/06/2021 CBC NRBC% 0.0 % 0.0-0. 2 Not Available [address], [address], 12/06/2021 09:19:12 12/07/19 22 12/06/2021 CBC NRBC# 0.000 0.000- 0.012 Not Available [address], [address], 12/06/2021 09:19:12 12/07/19 22 12/06/2021 ESR sed rate 14.0 0.0-15 .0 Not Available [address], [address], 12/06/2021 10:47:26 12/07/19 22 12/06/2021 COMP. METAB OLIC PANEL glucose 96 mg/dL 70-100 Not Available [address], [address], 12/06/2021 17:34:26 12/07/19 22 12/06/2021 COMP. METAB OLIC PANEL BUN 17 mg/dL 7-18 Not Available [address], [address], 12/06/2021 17:34:26 12/07/19 22 12/06/2021 COMP. METAB OLIC PANEL creatinine 0.8 mg/dL 0.8-1. 3 Not Available [address], [address], 12/06/2021 17:34:26 12/07/19 22 12/06/2021 COMP. METAB OLIC PANEL B/C 21.3 ratio Not Available [address], [address], 12/06/2021 17:34:26 12/07/19 22 12/06/2021 COMP. METAB [...] be used in pregn gloria. Not Available [address], [address], 12/06/2021 17:34:26 12/07/19 22 12/06/2021 COMP. METAB OLIC PANEL sodium 140 mmol/ L 136-14 5 Not Available [address], [address], 12/06/2021 17:34:26 12/07/19 22 12/06/2021 COMP. METAB OLIC PANEL potassium 4.6 mmol/ L 3.5-5. 1 Not Available [address], [address], 12/06/2021 17:34:26 12/07/19 22 12/06/2021 COMP. METAB OLIC PANEL chloride 105 mmol/ L 96-107 Not Available [address], [address], 12/06/2021 17:34:26 12/07/19 22 12/06/2021 COMP. METAB OLIC PANEL anion gap 5.4 5.0-15 .0 Not Available [address], [address], 12/06/2021 17:34:26 12/07/19 22 12/06/2021 COMP. METAB OLIC PANEL CO2 30 mmol/ L 21-32 Not Available [address], [address], 12/06/2021 17:34:26 12/07/19 22 12/06/2021 COMP. METAB OLIC PANEL calcium 8.9 mg/dL 8.5-10 .3 Not Available [address], [address], 12/06/2021 17:34:26 12/07/19 22 12/06/2021 COMP. METAB OLIC PANEL total protein 7.0 g/dL 6.4-8. 2 Not Available [address], [address], 12/06/2021 17:34:26 12/07/19 22 12/06/2021 COMP. METAB OLIC PANEL albumin 3.7 g/dL 3.4-5. 0 Not Available [address], [address], 12/06/2021 17:34:26 12/07/19 22 12/06/2021 COMP. METAB OLIC PANEL globulin 3.3 g/dL Not Available [address], [address], 12/06/2021 17:34:26 12/07/19 22 12/06/2021 COMP. METAB OLIC PANEL A/G 1.1 ratio 0.8-2. 0 Not Available [address], [address], 12/06/2021 17:34:26 12/07/19 22 12/06/2021 COMP. METAB OLIC PANEL total bilirubin 0.70 mg/dL 0.00-1 .00 Not Available [address], [address], 12/06/2021 17:34:26 12/07/19 22 12/06/2021 COMP. METAB OLIC PANEL AST 22 U/L 0-37 Not Available [address], [address], 12/06/2021 17:34:26 12/07/19 22 12/06/2021 COMP. METAB OLIC PANEL ALT 30 U/L 6-63 Not Available [address], [address], 12/06/2021 17:34:26 12/07/19 22 12/06/2021 COMP. METAB OLIC PANEL alk. phos. 63 U/L 50-136 Not Available [address], [address], 12/06/2021 17:34:26 12/07/19 22 12/06/2021 C-ELOISA CTIVE PROTE IN-QU ANTIT ATIVE C-reactive protein -quant <2.0 mg/L 0.0-9. 0 < crp verif ied, cmd Not Available [address], [address], 12/06/2021 18:26:14 03/07/20 22 03/07/2022 WOUND CULTU RE/SM EAR special requests None Not Available [facility] (Outpatient) [address] [place], [address], 03/09/2022 11:03:10 03/07/20 22 03/08/2022 WOUND CULTU RE/SM EAR gram stain NO ORGANI SMS SEEN Not Available [facility] (Outpatient) [address] [place], [address], 03/09/2022 11:03:10 03/07/20 22 03/09/2022 WOUND CULTU RE/SM EAR wound culture/smea r PASTEU RELLA MULTOC TOMY abnormal Not Available [facility] (Outpatient) [address] [place], [address], 03/09/2022 11:03:10 03/07/20 22 03/09/2022 WOUND CULTU RE/SM EAR cefazolin <=4 susceptib le Not Available [facility] (Outpatient) [address] [place], [address], 03/09/2022 11:03:10 03/07/20 22 03/09/2022 WOUND CULTU RE/SM EAR ceftazidime 4 susceptib le Not Available [facility] (Outpatient) [address] [place], [address], 03/09/2022 11:03:10 03/14/20 22 03/14/2022 CBC WBC 5.96 K/ L 3.98-1 0.04 Not Available [address], [address], 03/14/2022 10:41:20 03/14/20 22 03/14/2022 CBC RBC 4.78 M/ L 3.93-5 .22 Not Available [address], [address], 03/14/2022 10:41:20 03/14/20 22 03/14/2022 CBC HGB 14.5 g/dL 11.2-1 5.7 Not Available [address], [address], 03/14/2022 10:41:20 03/14/20 22 03/14/2022 CBC HCT 45.5 % 34.1-4 4.9 high Not Available [address], [address], 03/14/2022 10:41:20 03/14/20 22 03/14/2022 CBC MCV 95.2 fL 79.4-9 4.8 high Not Available [address], [address], 03/14/2022 10:41:20 03/14/20 22 03/14/2022 CBC MCH 30.3 pg 25.6-3 2.2 Not Available [address], [address], 03/14/2022 10:41:20 03/14/20 22 03/14/2022 CBC MCHC 31.9 g/dL 32.2-3 5.5 low Not Available [address], [address], 03/14/2022 10:41:20 03/14/20 22 03/14/2022 CBC plt 164 K/ L 182-36 9 low Not Available [address], [address], 03/14/2022 10:41:20 03/14/20 22 03/14/2022 CBC MPV 9.9 fL 9.4-12 .3 Not Available [address], [address], 03/14/2022 10:41:20 03/14/20 22 03/14/2022 CBC neut% 33.4 % 34.0-7 1.1 low Not Available [address], [address], 03/14/2022 10:41:20 03/14/20 22 03/14/2022 CBC neut# 1.99 1.56-6 .13 Not Available [address], [address], 03/14/2022 10:41:20 03/14/20 22 03/14/2022 CBC lymph % 45.6 % 19.3-5 1.7 Not Available [address], [address], 03/14/2022 10:41:20 03/14/20 22 03/14/2022 CBC lymph # 2.72 K/ L 1.18-3 .74 Not Available [address], [address], 03/14/2022 10:41:20 03/14/20 22 03/14/2022 CBC mono% 17.8 % 4.7-12 .5 high SREV= Slide revie wed by techn [facility] [address]. Not Available [address], [address], 03/14/2022 10:41:20 03/14/20 22 03/14/2022 CBC mono# 1.06 0.24-0 .56 high Not Available [address], [address], 03/14/2022 10:41:20 03/14/20 22 03/14/2022 CBC eo% 2.7 % 0.7-5. 8 Not Available [address], [address], 03/14/2022 10:41:20 03/14/20 22 03/14/2022 CBC eo# 0.16 0.04-0 .36 Not Available [address], [address], 03/14/2022 10:41:20 03/14/20 22 03/14/2022 CBC baso% 0.3 % 0.1-1. 2 Not Available [address], [address], 03/14/2022 10:41:20 03/14/20 22 03/14/2022 CBC baso# 0.02 0.00-0 .08 Not Available [address], [address], 03/14/2022 10:41:20 03/14/20 22 03/14/2022 CBC RDW-CV 14.5 % 11.7-1 4.4 high Not Available [address], [address], 03/14/2022 10:41:20 03/14/20 22 03/14/2022 CBC Ig% 0.200 % 0.000- 1.500 Ig % >0.5 Indic ates possi ble Left Shift Not Available [address], [address], 03/14/2022 10:41:20 03/14/20 22 03/14/2022 CBC Ig# 0.010 0.000- 0.093 Not Available [address], [address], 03/14/2022 10:41:20 03/14/20 22 03/14/2022 CBC NRBC% 0.0 % 0.0-0. 2 Not Available [address], [address], 03/14/2022 10:41:20 03/14/20 22 03/14/2022 CBC NRBC# 0.000 0.000- 0.012 Not Available [address], [address], 03/14/2022 10:41:20 03/14/20 22 03/14/2022 ESR sed rate 18.0 0.0-15 .0 high Not Available [address], [address], 03/14/2022 10:58:06 03/14/20 22 03/14/2022 COMP. METAB OLIC PANEL glucose 92 mg/dL 70-100 Not Available [address], [address], 03/14/2022 12:47:50 03/14/20 22 03/14/2022 COMP. METAB OLIC PANEL BUN 19 mg/dL 7-18 high Not Available [address], [address], 03/14/2022 12:47:50 03/14/20 22 03/14/2022 COMP. METAB OLIC PANEL creatinine 0.9 mg/dL 0.8-1. 3 Not Available [address], [address], 03/14/2022 12:47:50 03/14/20 22 03/14/2022 COMP. METAB OLIC PANEL B/C 21.1 ratio Not Available [address], [address], 03/14/2022 12:47:50 03/14/20 22 03/14/2022 COMP. METAB [...] be used in pregn gloria. Not Available [address], [address], 03/14/2022 12:47:50 03/14/20 22 03/14/2022 COMP. METAB OLIC PANEL sodium 142 mmol/ L 136-14 5 Not Available [address], [address], 03/14/2022 12:47:50 03/14/20 22 03/14/2022 COMP. METAB OLIC PANEL potassium 4.3 mmol/ L 3.5-5. 1 Not Available [address], [address], 03/14/2022 12:47:50 03/14/20 22 03/14/2022 COMP. METAB OLIC PANEL chloride 105 mmol/ L 96-107 Not Available [address], [address], 03/14/2022 12:47:50 03/14/20 22 03/14/2022 COMP. METAB OLIC PANEL anion gap 8.5 5.0-15 .0 Not Available [address], [address], 03/14/2022 12:47:50 03/14/20 22 03/14/2022 COMP. METAB OLIC PANEL CO2 29 mmol/ L 21-32 Not Available [address], [address], 03/14/2022 12:47:50 03/14/20 22 03/14/2022 COMP. METAB OLIC PANEL calcium 8.4 mg/dL 8.5-10 .3 low Not Available [address], [address], 03/14/2022 12:47:50 03/14/20 22 03/14/2022 COMP. METAB OLIC PANEL total protein 6.9 g/dL 6.4-8. 2 Not Available [address], [address], 03/14/2022 12:47:50 03/14/20 22 03/14/2022 COMP. METAB OLIC PANEL albumin 3.4 g/dL 3.4-5. 0 Not Available [address], [address], 03/14/2022 12:47:50 03/14/20 22 03/14/2022 COMP. METAB OLIC PANEL globulin 3.5 g/dL Not Available [address], [address], 03/14/2022 12:47:50 03/14/20 22 03/14/2022 COMP. METAB OLIC PANEL A/G 1.0 ratio 0.8-2. 0 Not Available [address], [address], 03/14/2022 12:47:50 03/14/20 22 03/14/2022 COMP. METAB OLIC PANEL total bilirubin 0.50 mg/dL 0.00-1 .00 Not Available [address], [address], 03/14/2022 12:47:50 03/14/20 22 03/14/2022 COMP. METAB OLIC PANEL AST 20 U/L 0-37 Not Available [address], [address], 03/14/2022 12:47:50 03/14/20 22 03/14/2022 COMP. METAB OLIC PANEL ALT 22 U/L 6-63 Not Available [address], [address], 03/14/2022 12:47:50 03/14/20 22 03/14/2022 COMP. METAB OLIC PANEL alk. phos. 70 U/L 50-136 Not Available [address], [address], 03/14/2022 12:47:50 03/14/20 22 03/14/2022 C-ELOISA CTIVE PROTE IN-QU ANTIT ATIVE C-reactive protein -quant 7.7 mg/L 0.0-9. 0 Not Available [address], [address], 03/14/2022 12:47:51 04/17/20 23 04/17/2023 LIPID PANEL cholesterol 245 mg/dL <200 mg/dl Tobias able 200-2 39 mg/dl Borde rline High >240 mg/dl High Not Available [address], [address], 04/17/2023 11:35:05 04/17/20 23 04/17/2023 LIPID PANEL triglyceride s 144 mg/dL <150 mg/dL Jeaneth l 150-1 99 mg/dL Borde rline High 200-4 99 mg/dL High >500 mg/dL Very High Not Available [address], [address], 04/17/2023 11:35:05 04/17/20 23 04/17/2023 LIPID PANEL direct HDL 63 mg/dL <40 mg/dl - Major Risk for CHD >60 mg/dl - Negat lorraine Risk for CHD Not Available [address], [address], 04/17/2023 11:35:05 04/17/20 23 04/17/2023 LDL - CALCU LATED LDL - calculated 153.2 RISK CATEG ORY LDL GOAL _ CHD or CHD Risk Equiv alent s <100 mg/dl (10-y ear risk >20%) 2+ Risk Facto rs <130 mg/dl (10-y ear risk <= 20%) 0-1 Risk Facto r <160 mg/dl [facility] all peopl e with 0-1 risk facto r have a 10 year risk <10%, thus 10 year risk asses ment in peopl e with 0-1 risk facto r is not neces danial. Not Available [address], [address], 04/17/2023 11:35:06 10/20/19 24 10/21/2023 IMMUN OCHEM ICAL FECAL OCCUL T BLOOD ifobt NEGATI VE negati ve Not Available [address], [address], 10/21/2023 12:25:58 01/24/20 22 01/23/2022 CT, chest No observ ation record ed. [facility] [address], [place], [address], 01/23/2022 18:15:12 04/24/20 23 12/16/2022 trans -thor [...] . ELECTR ONICAL LY SIGNED : Karlee Maglalanes ms, M.D. on 2022 at 03:32: 35 PM Lucy Mena kristian: [facility] [address] , [place], [address], 05/02/2023 08:17:17 01/28/20 25 01/27/2025 XR, hip No observ ation record ed. [email or web address] [address], [address], 01/27/2025 15:40:41 01/29/20 25 01/27/2025 XR, knee, 3 view No observ ation record ed. [email or web address] [facility] [address] [place] [address], [address], 01/31/2025 12:37:28 01/29/20 25 01/27/2025 XR, knee, 3 view No observ ation record ed. [address] [place] [address], [address], 01/31/2025 12:37:28 Result Notes Documentation Provider Name and Address Organization Details Recorded Time Mammo, Screening, Tomosynthesis, Bilateral : MAMMO, SCREEN, EMILY, BILAT: 05/01/2023. BI-RADS: 1 CLINICAL: 67-year old Female for Bilateral Screening Mammogram. No personal or first-degree family history of breast cancer. PRIOR EXAMS: Reviewed previous images from 2020, 2017 and 2011. MAMMOGRAPHY TECHNIQUE: 3D mammography (tomosynthesis) and 2D mammography (C-view) images are generated. Images reviewed with a CAD system. DENSITY B. There are scattered areas of fibroglandular density. MAMMOGRAPHY FINDINGS Bilateral: No suspicious mass, asymmetry, microcalcification, or other abnormality seen. CONCLUSION * No evidence of malignancy. RECOMMENDATIONS Bilateral * Annual screening mammography. ADMINISTRATIVE: A lay summary was mailed to your patient indicating the results and recommendations for follow-up. OVERALL ASSESSMENT CATEGORY BI-RADS-1: Negative. [employer] recommends annual screening mammography beginning at age 40 for women with average risk of breast cancer. ELECTRONICALLY SIGNED: Isak Lozoya M.D. on 05/01/2023 at 03:32:35 PM Reading Physician: Isak Bueno LPN [facility] 05/02/2023 08:17:17 Problems Name Problem SNOMED Code Status Onset Date Resolution Date Notes Provider Name and Address Organization Details Recorded Time Abnormal findings on diagnost ic imaging of breast 102925754 Completed 12/11/2021 GUANAKO [address]inoza [address] [place], [place] [address], [phone], [facility] 2 08:07:32 Mammogra phy abnormal 478203636 Completed 12/11/2021 GUANAKO Espinoza [address] [place], [place] [address], [address], [facility] [place] [facility] 08:12:14 Rheumato id arthabundio s 47112838 Active 2017 [facility] [facility] GUANAKO Espinoza [address] [place], [place] [address], [address], [facility] [place] 3 15:48:59 Long-ter m drug therapy Active 2017 GUANAKO Espinoza [address] [place], [place] [address], [address], [facility] [place] 2 08:12:05 Reactive depressi on (situati onal) 73670889 Active 2017 treated in the . 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 Procedures Surgical History Date Name Laterality Status Provider Name and Address Organization Details Recorded Time 08/25/19 24 Fundus Photography completed Davida Chance, OD [address] [place] [address], [phone], [facility] 08/25/2023 16:05:56 08/25/19 24 Refraction completed Davida Chance, OD [address] [place] [address], [phone], [facility] 08/25/2023 16:05:18 04/24/20 23 Medicare Wellness Visit completed Alaina Molina [facility] 04/24/2023 09:36:14 06/14/20 22 Refraction completed Davida Chance, OD [address] [place] [address], [phone], [facility] 06/14/2022 10:35:11 12/11/19 22 Medicare Wellness Visit completed Alda Vail [facility] 12/07/2021 16:19:14 02/15/20 21 Refraction completed Davida Chance, OD [address] [place] [address], [phone], [facility] 02/14/2021 09:32:46 12/08/19 21 Medicare Wellness Visit completed Ashley Nicholson [facility] 12/05/2020 13:50:19 12/08/19 21 Advanced Care Planning completed GUANAKO Espinoza [address] [place] [address], [phone], [facility] 12/07/2020 10:24:47 10/28/19 19 Knee (Left) Injection completed Aguila Ferreira MD [address] [place] [address], [phone], [facility] 10/28/2018 08:19:53 03/13/20 18 Smoking cessation counseling completed [facility] 03/13/2018 16:18:04 03/13/20 18 Carbon Monoxide Testing completed [facility] 03/13/2018 16:18:04 07/28/18 59 Remove tonsils and adenoids completed Selene Sun PA-C [address] [place] [address], [phone], [facility] 05/11/2018 11:33:45 Tooth root removal completed Selene Sun PA-C [address] [place] [address], [phone], [facility] 05/11/2018 11:34:02 Imaging Results None recorded. Procedure [...] TAKE 4 TABLETS BY MOUTH EVERY DAY 05/13 /2021 completed Not taking 08/18/20 Not Available Not [...] 0 Not Available Not Available Not Available [facility] COVID-19 Vaccine (PF) 30 mcg/0.3 mL IM susp (purple) PHARMACY ADMINIST ERED 12/07 completed Not Available Not Available Not Available Vitals Date Recorded Body height Body mass index (BMI) Body weight Heart rate Systolic And Diastolic Provider Name and Address Organization Details Last Updated DateTime 12/20/2021 176.53 cm 30.3 kg/m2 98562.21 g 82 /min 122/80 mm[Hg] Griselda Guerrero LPN [facility] 12/20/2021 09:49:07 Date Recorded Body height Body mass index (BMI) Body weight Heart rate Systolic And Diastolic Provider Name and Address Organization Details Last Updated DateTime 04/05/2022 176.53 cm 30.5 kg/m2 02757.68 g 61 /min 132/80 mm[Hg] Griselda Guerrero LPN [facility] 04/05/2022 10:38:29 Date Recorded Body weight Body mass index (BMI) Body height Heart rate Systolic And Diastolic Provider Name and Address Organization Details Last Updated DateTime 04/24/2023 [address]012.02 g 30.2 kg/m2 176.53 cm 60 /min 130/76 mm[Hg] Alaina alejandre MA [facility] 04/24/2023 10:26:11 Social History Question Answer Notes LastModified by Organizat ion Details LastModified Time Tobacco Smoking Status Former Smoker stopped Feb, 2018. [facility] 09/03/2011 09:11:59 Do You Have An Advance Directive? No Information not available 09/03/2011 What Is Your Level Of Caffeine Consumption? Heavy [email or web address] Information not available 03/13/2018 What Type Of [...] Any Guns Present In Your Home? No [email or web address] Information not available 03/13/2018 Live Alone Or With Others? Alone Information not available 09/03/2011 Patient Has Health Care Proxy Signed And In Chart No Information not available 09/03/2011 CCM Consent Discussion 11/09/2018 [email or web address] Information not available 11/10/2018 Marital Status Single Informatio n not available 09/03/2011 Mosquito Repellent Used Routinely Yes [email or web address] Information not available 03/13/2018 What Was The Date Of Your Most Recent Tobacco Screening? 04/24/2023 [email or web address] Information not available 04/24/2023 How Many Children Do You Have? 0 Information not available 09/03/2011 What Is Your Current Pack Years? 30ormorepac kyears 40+ Years, 1 Ppd Information not available 05/11/2018 Seat Belts Used Routinely Yes Information not available 03/13/2018 Are You Sexually Active? No Not Since 2000 Information not available 09/03/2011 Smoke Alarm In Home Yes [email or web address] Information not available 03/13/2018 At What Age Did You Start Smoking Tobacco? 1976 Information not available 09/03/2011 General Stress Level Low Information not available 03/13/2018 Do You Use Sunscreen Routinely? Yes [email or web address] Information not available 03/13/2018 Sex: Unknown Functional Status Question Answer Note LastModified by Organizat ion Details LastModified Time What is your level of alcohol consumption? None stopped 02/2018 [email or web address] Information not available 04/04/2020 Do you or have you ever used smokeless tobacco? 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 Never used electronic cigarettes Information not available 12/05/2020 Mental Status None recorded. Family History Relationship Description Onset Age of this Age Resolved Age Notes LastModified by Organization Details LastModified Time Mother Diabetes mellitus previo usly record ed as Diabet es [id number] Not available 03/08/2013 03:01:15 Mother Hypertensive disorder [email or web address] Not available 2017 11:34:34 Mother Myocardial infarction [email or web address] Not available 05/11 11:34:56 Mother Heart disease [email or web address] Not available 2017 11:35:17 Father Rheumatoid arthritis [email or web address] Not available 2017 08:53:48 Medical History Condition Response RENAL / GENITOURINARY Y INFECTIOUS DISEASE GERD Y Rheumatoid Arthritis Y Gynecological HistoryNo gynecological history recorded. Obstetrics History GPAL:G 0 P 0 0 0 0 Immunizations Vaccine Type Date Status Note Provider Nam e and Address Organization Details Recorded Time Tdap 8 completed Not Available [facility]/14/2019 02:30:32 Influenza, split virus, quadrivalent, PF 8 completed Not Available [facility] 08/14/2019 02:33:43 Pneumococcal conjugate PCV 13 04/15/201 9 completed Not Available [facility] 08/14/2019 02:30:33 Influenza, high-dose, trivalent, PF 9 completed Not Available [facility] 08/14/2019 02:24:37 Influenza, high-dose, quadrivalent, PF 0 completed Sandra Barnett null, [facility] 05/20/2020 11:25:10 Influenza, high-dose, quadrivalent, PF 1 completed Carolyn Allen CMA null, [facility] 05/25/2021 08:50:21 SARS-COV-2 (COVID-19) vaccine, UNSPECIFIED 0 completed Sarah Coy LPN null, [facility] 08/18/2020 09:16:13 SARS-COV-2 (COVID-19) vaccine, UNSPECIFIED 1 [facility] 09[facility]16:44 zoster recombinant 0 completed Nupur Gunn RMA null, [facility] 12/07/2020 09:22:18 zoster recombinant 0 completed Nupur Gunn RMA null, [facility] 12/07/2020 09:22:28 Influenza, high-dose, quadrivalent, PF 3 completed GUANAKO Espinoza [address] [place] [address], [phone], [facility] 04/24/2023 10:37:27 COVID-19, mRNA, LNP-S, PF, 30 mcg/0.3 mL dose 2 completed Griselda Guerrero LPN null, [facility] 04/05/2022 10:37:02 Influenza, high-dose, quadrivalent, PF 2 completed Griselda Guerrero LPN null, [facility] 2022 14:07:20 Past Encounters Encounter ID Performer Location Encounter Start Date Encounter Closed Date Diagnosis/Indication Diagnosis SNOMED-CT Code Diagnosis ICD10 Code Diagnosis Note [id number] Jenny Estevez MD FP, [facility], OFFICE [address] [place] [address] 09/03/2011 08:49:48 09/03/2011 10:19:07 [id number] [facility] MAMMO TECH Radiology , [address] [address] 09/12/2011 13:29:11 09/17/2011 14:45:53 [id number] [facility] MAMMO TECH Radiology , [address] [address] 09/20/2011 11:22:03 09/24/2011 11:43:28 [id number] [facility] [employer]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 Wanting to quit. Active or passive immunization 178607604 Z23 Swelling of hand 2317000 03 R22.33 [id number] Aguila Ferreira MD [facility] [place] [address] [place] [address] 03/27/2018 13:53:45 03/27/2018 16:43:37 Rheumatoid arthritis 39192936 M06.9 Highly likely Sero positive RA. Symptoms [...] calcium, vit D while on prednisone . [id number] Aguila Ferreira MD Rheumatol [place], [facility] [address] [place] [address] 05/04/2018 09:40:17 05/05/2018 07:08:57 Rheumatoid arthritis 00427416 M05.69 Sero positive, CCP + RA. There [...] Follow up 6 weeks. Long-term drug therapy 030523596 Z79.899 On halfway MTX; Needs lab monitoring ; Check CBC, LFT's, creat Long-term current use of systemic steroid 1683043314 79233 Z79.52 10 mg with plans to taper.Cont inue calcium and Vit D. [id number] Amanda Walsh , [facility], OFFICE [address] [place] [address] 05/11/2018 11:05:39 05/11/2018 12:39:20 Adult health examination 654117724 Z00.00 see Risk Assessment and Lifestyle Change Counseling section above Depression screening 171 405610 Z13.89 depression screening tool administer ed, entered into emr, scored and discussed, time greater than 7.5 minutes Rheumatoid arthritis 698 68755 M06.9 Continue care plan per rheum Screening for malignant neoplasm of cervix 464759019 Z12.4 Ex-smoker 5578878 Z87.89 1 Screening for malignant neoplasm of colon 977202303 Z12.11 Hyperglycemia 79967374 R 73.9 Non fasting glucose elevated. Will check fasting glucose. Overweight 982806303 E66 .3 Elevated blood-pressure reading without diagnosis of hypertension 564838279 R03.0 Monitor BP at home. If consistent ly >130/80, come back for BP recheck sooner than 6 months. Active or passive immunization 631799038 Z23 Vaginal mass 299999829 N 89.8 Pt co-evaluat ed with Dr. Walsh. Will check transvagin al ultrasound for further characteri zation of mass. At this point concern for malignancy is low as it has been present for at least 10 years and per pt has remained unchanged. [id number] Aguila Ferreira MD Rheumatol [address] [address] 06/16/2018 09:42:04 06/17/2018 07:10:06 Rheumatoid arthritis 22702475 M05.69 Sero positive, CCP + RA. There [...] up 6 weeks. Menopausal and postmenopausal disorders 740376656 N95.9 psot menopausal , on steroids. Also RA. Risk for osteoprosi s. Check scan.Calci um and vit D supplement s. 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 There has been substantia l improvemen t on current prednisone 10 + MTX 20 . However, even on the 10 mg/d prednisone , there is still obvious active synovitis. Starting Enbrel today. Continue MTX. Up to date on labs. Cont pred 10/d for now, but expect to taper at next visit.BMD pending. Follow up 6 weeks. [id number] Aguila Ferreira MD [facility], [address] [address] 08/11/2018 08:42:56 08/13/2018 14:53:38 Rheumatoid arthritis 72160703 M05.69 Sero positive, CCP + RA. Excellent early response to Enbrel (started 5 weeks ago).Expec t to see further improvemen t. Continue EnbrelCont MTX 20 mg/wk.May try slow taper of prednisone : 5 mg 3 weeks, 4 mg 3 weeks etc. f/u 3 mo, sooner if needed. Bilateral knee pain 1187 618288 5711568 M25.561 M25.562 Bilat knee involvemen t with RA.Some improvemen t with Enbrel, but persisting swelling. If still symptomati c at next visit will check x ray and will advise local injeciton. Long-term drug therapy 712601106 Z79.899 On halfway MTX; Needs lab monitoring ; Check CBC, LFT's, creat [id number] Aguila Ferreira MD [facility] [place], [address] [address] 10/27/2018 10:02:56 10/27/2018 11:01:35 Rheumatoid arthritis 88316770 M05.69 Sero positive, CCP + RA.Good response to Enbrel. Still synovitis both knees. May see further improvemen t. Continue EnbrelCont MTX 20 mg/wk.May continue slow taper of prednisone : 3 mg Knee joint effusion 2022 16206 M25.462 Inflammato ry effusion bilat l > R. Local inj today on L. Return 2 weeks for R injection. Long-term drug therapy 811980501 Z79.899 On halfway MTX; Needs lab monitoring ; Check CBC, LFT's, creat [id number] Amanda Walsh , [facility], OFFICE [address] [place] [address] 11/09/2018 11:18:43 11/09/2018 14:10:39 Rheumatoid arthritis 25168251 M06.9 Continue care plan per rheum. Return in 6 months for wellness visit or sooner as needed. Active or passive immunization 150884673 Z23 [id number] Aguila Ferreira MD [facility], [address] [address] 11/16/2018 10:54:20 11/17/2018 14:13:01 Rheumatoid arthritis 68279296 M05.69 Sero positive, CCP + RA.Good response [...] me know.RV in January. 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 [id number] Aguila Ferreira MD Rheumatol [address] [address] 01/26/2019 09:10:46 01/26/2019 15:19:02 Rheumatoid arthritis 30631318 M05.69 Sero positive, CCP + RA.On MTX. [...] consider change from Enbrel Long-term drug therapy 231686777 Z79.899 On halfway MTX; Needs lab monitoring ; CBC, LFT's, creat all OK 10/27/18. Rpeat today. [id number] Aguila Ferreira MD Rheumatol [place], [address] [address] 05/03/2019 10:09:28 05/04/2019 06:00:31 Active or passive immunization 101486674 Z23 flu shot today.Disc ussed should get Shingrix. Rheumatoid arthritis 698 77703 M05.69 Sero positive, CCP + RA.On MTX. Good response to Enbrel, but with prednisone taper to just 1 mg, clearly had recurrent synovitis. We boosted prednisone to just 2 mg and, whether or not this was responsibl e, doing MUCH better today.Cont inue EnbrelCont MTX 20 mg/wk.Cont inue prednisone 2 mg/d indefinite ly. Update labs 3 mo.Return 6 mo or sooner if needed. [id number] Aguila Ferreira MD Rheumatol [place], [address] [place] [address] 11/11/2019 10:46:00 11/11/2019 11:53:47 Rheumatoid arthritis 00479786 M05.69 Sero positive, CCP + RA.On MTX. Good response to Enbrel, but with prednisone taper to just 1 mg, clearly had recurrent synovitis. We boosted prednisone to just 2 mg and, whether or not this was responsibl e, doing MUCH better .Continue EnbrelCont MTX 20 mg/wk.Cont inue prednisone 2 mg/d indefinite ly. Update labs 3 mo. Knee joint effusion 2022 12774 M25.462 Inflammato ry effusions in past. L knee injected 1 year ago with sustained benefit, but some sxs recurring. Will try to hold off on injection, but if sxs progress, should call and we can schedule injection. 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 In view of viral epidemic, risk of exposure at routine lab follow up for DMARD medication probably outweighs benefit of labs. Hold for 3 mo. RV 3 mo. [id number] Amanda Walsh , [facility], OFFICE [address] [place] [address] 11/19/2019 15:32:13 11/22/2019 15:26:16 SARS-CoV-2 975226003 U07.1 Pt +COVID19, began experienci ng symptoms on 11/17/19. Symptoms have improved today, pt instructed to call the office if she develops any SOB or worsening symptoms. Pt has been informed of return to work guidelines , she reports she is not going back until December 01 or . Pt has discontinu ed Enbrel and Methotrexa te for [address] Ferreira. [id number] Aguila Ferreira MD Rheumatol [place], [address] [place] [address] 04/04/2020 10:49:11 04/06/2020 06:52:08 Rheumatoid arthritis 10432027 M05.69 Sero positive, CCP + RA.On MTX. [...] reducing dose of MTX. 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 RV 3 mo. [id number] Amanda Walsh , [facility], OFFICE [address] [place] [address] 05/20/2020 07:17:29 05/22/2020 12:04:36 Active or passive immunization 635924340 Z23 [id number] Aguila Ferreira MD Rheumatol [place], [address] [address] 08/18/2020 09:10:15 08/18/2020 14:07:30 Rheumatoid arthritis 69507179 M06.9 Sero positive, CCP + RA. On MTX. Good response to Enbrel, now off prednisone entirely. Continue Enbrel Reduce MTX to 15 mg/wk mg/wk Acquired thrombocytopenia 97184004 D69.6 Borderline low plts. Trend has been downward over past year. Will reduce dose MTX, update labs in a month. Long-term drug therapy 741168533 Z79.899 MTX. LFTs OK. follow [id number] Amanda RIVERS, [facility], OFFICE [address] [place] [address] 12/07/2020 09:13:26 12/08/2020 09:35:19 Adult health examination 895120179 Z00.00 Counseling 222379721 Z71 .9 Depression screening 171 237748 Z13.31 depression screening tool administer ed, entered into emr, scored and discussed, time greater than 7.5 minutes Advance di rectlorraine discussed with patient 401238398 Z71.89 MOLST filled out today Screening mammography 24 252342 Z12.31 Screening for malignant neoplasm of colon 318655724 Z12.11 Rheumatoid arthritis 698 29891 M06.9 On Methotrexa te and Enbrel, follows with [facility] rheumatolo gy Ex-smoker 5277280 Z87.89 1 [id number] Monse Mendiola MD [facility], [address] [address] 12/14/2020 07:51:24 12/14/2020 18:08:22 Rheumatoid arthritis 51328618 M06.9 Sero positive, CCP + RA. On MTX. Good response to Enbrel, now off prednisone entirely. Continue Enbrel and mtx. Trying to consolidat e remission then will try to wean down mtx slowly or space out Enbrel. Check labs for disease activity and medication toxicity (standing orders). Patient got COVID vaccine and PCV-13. RTC in 4 months or sooner if needed. Acquired thrombocytopenia 81097352 D69.6 Borderline low plts. Trend has been downward over past year. Monitor. Long-term drug therapy 051766131 Z79.899 On mtx and Enbrel. Monitor labs. Continue folic acid. Patient to hold mtx and enbrel if fever or any sign of infection. [id number] Davida Chance, OD [facility], [address] [address] 02/14/2021 08:46:51 02/17/2021 14:13:16 Nuclear senile cataract 600528912 H25.13 mild OD>OS, pt ed. not visually significan t. monitor annually. Presbyopia 44335913 H52. 4 [id number] Monse Mendiola MD [facility], [address] [address] 04/16/2021 09:31:17 04/16/2021 10:36:14 Rheumatoid arthritis 12299360 M06.9 Sero positive, CCP + RA. On [...] or sooner if needed. Long-term drug therapy 398224626 Z79.899 On mtx and Enbrel. Monitor labs. Continue folic acid. Patient to hold mtx and enbrel if fever or any sign of infection. Patient needs a full skin exam, she will check with pcp on this or she will call for a dermatolog y referral. [id number] Amanda Walsh , [facility], OFFICE [address] [place] [address] 05/25/2021 07:59:03 05/27/2021 14:59:06 Active or passive immunization 820350344 Z23 [id number] Monse Mendiola MD [facility], [address] 6 08/27/2021 09:19:59 08/27/2021 11:46:26 Rheumatoid arthritis 29916724 M06.9 Sero positive, CCP + RA. On [...] or sooner if needed. Long-term drug therapy 349240209 Z79.899 On mtx and Enbrel. Monitor labs. Continue folic acid, leucovorin . Patient to hold mtx and enbrel if fever or any sign of infection. Patient needs a full skin exam, she will check with pcp on this or she will call for a dermatolog y referral. [id number] Monse Mendiola MD Rheumat[facility] [place], [address] [address] 12/20/2021 09:38:37 12/20/2021 13:33:30 Rheumatoid arthritis 31556474 M06.9 Sero positive, CCP + RA. On [...] or sooner if needed. Long-term drug therapy 904257455 Z79.899 On mtx and Enbrel. Monitor labs. Continue folic acid, leucovorin . Patient to hold mtx and enbrel if fever or any sign of infection. Patient had recently a full skin exam at her PCP's office, it was normal per the patient. [id number] Amanda RIVERS, [facility], OFFICE [address] [place] [address] 12/10/2021 10:03:10 12/11/2021 09:07:39 Adult health examination 048461333 Z00.00 Counseling 215154803 Z71 .9 Depression screening 171 056659 Z13.31 depression screening tool administer ed, entered into emr, scored and discussed, time greater than 7.5 minutes Rheumatoid arthritis 698 02185 M06.9 On Methotrexa te and Enbrel, follows with [facility] [place] rheumatolo gy Ex-smoker 3477579 Z87.89 1 LDCT chest 12/28/20- nml, no nodules. Pt declines annual repeat LDCT due to copay, would like to repeat every 2 years at this time Cat bite 984864029 W55.0 1XD Pt bit by her own cat, went to , is on antibiotic s with improvemen t in symptoms, tetanus is UTD, cat is UTD on vaccines. Will contact the office for any worsening symptoms [id number] Monse Mendiola MD Rheumatol [place], [facility] [address] [place] [address] 04/05/2022 10:30:41 04/05/2022 11:34:26 Rheumatoid arthritis 65724944 M06.9 Sero positive, CCP + RA. On [...] or sooner if needed. Long-term drug therapy 176148256 Z79.899 On mtx and Enbrel. Monitor labs. [...] mcnally reinforced , patient verbalizes understand ing. [id number] Davida Chance, OD [facility], [facility] [address] [place] [address] 06/14/2022 09:43:56 06/14/2022 17:09:04 Nuclear senile cataract 964509673 H25.13 mild OD>OS, pt ed. not visually significan t. monitor annually. Presbyopia 05504568 H52. 4 Blepharitis 27209296 H01 .9 pt ed. recommend lid scrub qd, hot compress qd, AT 2-4 x per day prn. [id number] Amanda Walsh , [facility], OFFICE [address] [place] [address] 04/24/2023 09:50:27 04/26/2023 22:39:19 Adult health examination 888913034 Z00.00 Depression screening 171 461831 Z13.31 depression screening tool administer ed Screening for alcohol abuse 346695804 Z13.39 Alcohol use screening tool administer ed Screening for malignant neoplasm of colon 790950325 Z12.11 declines colo - will do stool kit Screening mammography 24 158548 Z12.31 Ex-smoker 9652444 Z87.89 1 LDCT chest 01/23/22, pt declines annual repeat LDCT due to copay, would like to repeat every 2 years at this time Active or passive immunization 070561178 Z23 flu - getting today Rheumatoid arthritis 698 12937 M06.9 On Methotrexa te and Enbrel, follows with [facility] Rheumat[facility] gy Hyperlipidemia 11884114 E78.5 Mild, recommend dietary modificati on, reassess yearly [id number] Davida Chance, OD [facility], [address] [address] 08/25/2023 13:03:22 08/26/2023 14:15:28 Nuclear senile cataract 980031745 H25.13 mild OD>OS, pt ed. not visually significan t. monitor annually. Presbyopia 02357604 H52. 4 Nevus of c horoid of left eye 3537679980 79475 D31.32 appears benign, no risk factors, pt ed. baseline photo today. Macular drusen 475248236 H35.362 few OS, pt ed. Observe. monitor here annually. 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 Health Concerns Section Related Observation LastModified by Organization Detai ls LastModified Time None Recorded Concern Status LastModified by Organization Details LastModified Time None Recorded Advance Directives Directive N: Payers Insurance Date Sequence Insurance Name Policy Number Policy Bond Covered Member ID Bond Member ID Guarantor Name 10/21/2023 2 [place] [employer] 104 Vianey Shepard [id number] Vianey Shepard 10/21/2023 1 [place] [employer] Vianey Shepard [id number] Vianey Shepard Notes Date Note Type [...] fully treated. Labs reviewed. Sven Mendiola MD [address] [place] [address], [phone], [facility] 12/20/2021 10:25:10 04/05/2022 text/html Patient is 66 [...] treated. Labs reviewed. Sven Mendiola MD [address] [place], [address], [facility] [place] 04/05/2022 11:27:53 06/14/2022 text/html CataractReported bypatient.Location:bi lateral Quality:painless Severity:mild Onset/Timing:gradualC omprehensive Eye ExamReported bypatient.Quality:1 year exam; no blurred vision Context:currently wears glasses Modifying factors:wears glasses for distance and near Associated Symptoms:no redness; no itching; no dryness;floaters tearing sometimes, once per week or less, OD. no eye pain. Davida Chance, OD [address] [place], [address], [facility] [place] 06/14/2022 14:41:27 04/24/2023 text/html Risk Assessment and Lifestyle Change Counseling 65+ (Medicare)Reported bypatient.Coronary Artery Disease Risk Assessment:Family History of Coronary Artery Disease(mother- [place]); No personal history of diabetes; No history [...] states has at home, will upload into [facility] mammo 05/14/21- nml, will repeat this yearLDCT chest 01/23/22- unchanged small nodules, recommended repeat annually but pt doesn't want to do so annually due to copay, will do so every other year (next year)IFOBT done 03/2021 was normalPt had ECHO and PFT done with edge inker which were normalGoes to rheumatology for RA, taking Enbrel and Methotrexate.Has 40+ pack year history, has quit smokingHas not drank alcohol since 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 Davida Chance OD [address] [place] [address], [phone], [facility] [place] 08/25/2023 16:10:57 OBGyn Episode No OBEpisode recorded.
== END 2025-02-02 10:41 | disposition home or self-care (01) ==
LOC: HO.RHE 09:50
PROVIDERS: PCP Physician Assistant; Visit Provider Student in an Organized Health Care Education/Training Program
DX: M06.09 Rheumatoid arthritis without rheumatoid factor, multiple sites (principal); M87.051 Idiopathic aseptic necrosis of right femur; M15.9 Polyosteoarthritis, unspecified; Z13.820 Encounter for screening for osteoporosis; Z51.81 Encounter for therapeutic drug level monitoring; Z79.631 Long term (current) use of antimetabolite agent; Z79.620 Long term (current) use of immunosuppressive biologic
CPT/HCPCS: 99215; G2211

== ENCOUNTER → 2025-02-02 09:49 | Outpatient (BNVA) | payer MEDICARE, BC, SELFPAY | PROVIDERS: PCP Physician Assistant; Visit Provider Student in an Organized Health Care Education/Training Program | DX: M06.09 Rheumatoid arthritis without rheumatoid factor, multiple sites (principal); M87.051 Idiopathic aseptic necrosis of right femur; M15.9 Polyosteoarthritis, unspecified; Z13.820 Encounter for screening for osteoporosis; Z51.81 Encounter for therapeutic drug level monitoring; Z79.631 Long term (current) use of antimetabolite agent; Z79.620 Long term (current) use of immunosuppressive biologic; Z79.52 Long term (current) use of systemic steroids; Z79.899 Other long term (current) drug therapy | CPT/HCPCS: 99212 ==

== ENCOUNTER 2025-02-10 07:42 | Outpatient (REF) | payer MEDICARE, BC, SELFPAY ==
--- NOTE | ~2025-02-10 | MM_ITS ---
EXAMINATION: DXA BONE DENSITY AXIAL HISTORY: M81.0 - Age-related osteoporosis without current pathological fracture TECHNIQUE: MedPlexus Dual energy absorptiometry (DEXA) of the lumbar spine, total left hip, and femoral neck was performed. COMPARISON: There are no prior studies for comparison. FINDINGS: The bone mineral density of the lumbar spine is 1.348 g/cm2, corresponding to a T-score of 1.5, and a Z-score of 2.4. This is indicative of normal bone mineral density. The bone mineral density of the left total hip is 0.863 g/cm2, corresponding to a T-score of -1.2, and a Z-score of -0.2. This is indicative of osteopenia. The bone mineral density of the left femoral neck is 0.828 g/cm2, corresponding to a T-score of -1.5, and a Z-score of -0.2. This is indicative of osteopenia. FRACTURE RISK: The FRAX index suggests a risk of major osteoporotic fracture of 20.5%, and of hip fracture 4.3%. MM/XR DEXA axial skeleton IMPRESSION: Based on bone mineral density, and according to World Health Organization (WHO) criteria, the diagnosis is consistent with osteopenia. Statistically, 68% of repeat scans fall within 1 SD (+/- 0.010 g/cm2 for AP spine L1-L4) and 1 SD (+/- 0.012 g/cm2 for femur total) FRAX is a trademark of the [employer] [place] [employer] Met[employer] Disease, a World Health Organization (WHO) Collaborating Center. Electronically signed by: Tyler Gilbert MD 02/10/2025 08:56 AM EDT
== END 2025-02-10 07:43 | disposition home or self-care (01) ==
LOC: HO.MAMMO 07:42
PROVIDERS: PCP Physician Assistant; Visit Provider Student in an Organized Health Care Education/Training Program
DX: M81.0 Age-related osteoporosis without current pathological fracture (principal); M06.09 Rheumatoid arthritis without rheumatoid factor, multiple sites
CPT/HCPCS: 77080

== ENCOUNTER → 2025-02-10 08:15 | Outpatient (BNV) | payer MEDICARE, BC, SELFPAY | PROVIDERS: PCP Physician Assistant; Visit Provider Radiology Diagnostic Radiology | DX: E28.39 Other primary ovarian failure (principal) | CPT/HCPCS: 77080 ==

== ENCOUNTER 2025-02-24 12:43 | Outpatient (AMB) | payer MEDICARE, BC, SELFPAY ==
--- NOTE | 2025-02-24 12:45 | MHC.OFFVIS ---
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 Hx of RA -seen with rheumatology. Patient reports pain has been going on for about a month, mainly in the posterior aspect of her hip & radiates down to her knee. Pain is described as a throbbing pain, and after sitting down for a prolong period of time, she is not able to stand straight. She has applied a heating pad and taken Tylenol, with good relief. Denies and previous injury. 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 Hx of RA -seen with rheumatology. Patient reports pain has been going on for about a month, mainly in the posterior aspect of her hip & radiates down to her knee. Pain is described as a throbbing pain, and after sitting down for a prolong period of time, she is not able to stand straight. She has applied a heating pad and taken Tylenol, with good relief. Denies and previous injury. She was having more pain in her hip but now her pain is in her right knee more than her hip. She has rheumatoid arthritis in his been treating this for a long time. She has been off and on biologics and steroids and so is used to dealing with discomfort. 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 She has no internal rotation at the right hip but can flex to 90 degrees. Impingement testing does not cause her pain however. Most of her reproducible discomfort is in the medial aspect of her right knee. Both knees are arthritic and sore to touch but minimal deformity. Results Reviewed Results Reviewed: I personally reviewed relevant radiographs. Bilateral knee OA that is tricompartmental and suspicious for rheumatoid pattern Right hip with severe arthritis compared to mild Assessment & Plan Assessment & Plan (1) Secondary osteoarthritis of right hip: Code(s): M16.7 - Other unilateral secondary osteoarthritis of hip Category: Medical Plan: This is a very pleasant 69-year-old woman with rheumatoid arthritis and right hip stiffness and arthritic changes on x-ray. She is a long-term user of anti rheumatoid agents and we discussed treatment options for her right hip. She has some pain right now although she is limited mobility dudley. Given this she is not feeling compelled to treat this surgically at this time and I would tend to agree. I am not sure the role of steroid injections either especially given her lack of pain. I do think, in the custodial, she will require a hip replacement to maintain her mobility. I discussed the procedure with her. I discussed what hip replacement can look like in the perioperative period and what her expectations should be. She expressed understanding and will let me know how she would like to proceed forward but at the moment there is no intervention warranted. Coding Level of Care Code Est Pt Level 4 (49851) Diagnoses Secondary osteoarthritis of right hip M16.7
[2025-02-24 12:47] VITALS: BMI 26.5
--- OUTSIDE RECORDS SUMMARY | 2025-02-24 12:53 | XMS_ITS | Clinical Summary ---
Author Organization [facility] Address [address] [facility] [address] [place] [phone] Phone Care Team Providers Care Case Investigator Name Role Phone Kirstin Perez Primary Care Provider [phone] Allergies No known active allergies Medications MULTIVITAMIN ORAL Ac tive cholecalciferol, vitamin D3, (VITAMIN D3 ORAL) Ac tive methotrexate 2.5 MG Oral tablet Take by mouth every 7 days. 4 tabs Qwkly Active leucovorin (WELLCOVORIN) 5 mg tablet Take 5 mg by mouth daily. Active etanercept (ENBREL) 50 mg/mL (1 mL) PnIj Active folic acid (FOLVITE) 800 MCG tablet Take 400 mcg by mouth daily. Active coenzyme Q10 100 mg capsule Take 100 mg by mouth daily. Active vitamin E 1000 UNIT capsule Take 1,000 Units by mouth daily. Active ACTEMRA ACTPEN 162 mg/0.9 mL subcutaneous pen injection 5 Active predniSONE (DELTASONE) 5 MG tablet Take 2 tablets by mouth every morning. 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 and was treated through TB clinic at the time, CXR/CT nml Rheumatoid arthritis 05/04/2018 [place] (12/25/2024[place] [facility] [place] Encounters Date Type Department Care Team Description 12/25/2024 9:50 AM EDT Office Visit [facility] [address] [address] Ezra Sampson PA-C Abscess of left external ear (Primary Dx) from Last 3 Months Immunizations Immunization Administration Dates Next Due Influenza High-Dose Quadrivalent Preservative Fr ee IM 05/25/2021,05/20/2020 Influenza High-Dose Trivalent Preservative Free IM 05/03/2019 Influenza Quadrivalent Preservative Free IM 04/27 Influenza, Unspecified Formulation 05/25/1996, Pneumococcal conjugate PCV13 11/09/2018 Tdap 03/13/2018 Zoster recombinant 06/16/2020,04/14/2020 Social History Tobacco Use Types Packs/Day Years Used Date Smoking Tobacco: Former Smokeless Tobacco: Never Tobacco Cessation:Counseling Given: Not Answered Comments:1 cig daily Alcohol Use Standard Drinks/Week Comments Yes 0 (1 standard drink = 0.6 oz pur e alcohol) Education Answer Date Recorded Are you interested in more education? Not on juan j e 11/22/2022 Are you concerned about learning? Not on file 11/22/2022 No 11/22/2022 No 11/22/2022 Digital Access Answer Date Recorded No 12/23/2022 No 12/23/2022 Reliable internet access at home? Not on file 12/23/2022 Device with a working camera? Not on file Comments Unknown Sex and Gender Information Value Date Recorded Sex Assigned at Female 11/15/2019 9:08 AM EDT Legal Sex Female 9:58 PM EDT Gender Identity Female 11/15/2019 9:08 AM EDT Sexual Orientation Choose not to disclose 2017 4:55 PM EDT Last Filed Vital Signs Vital Sign Reading Time Taken Comments Blood Pressure 131/85 12/25/2024 9:57 AM EDT Pulse 94 12/25/2024 9:57 AM EDT Temperature 36.6 C (97.9 F) 12/25/2024 9:57 AM EDT Respiratory Rate 16 12/25/2024 9:57 AM EDT Oxygen Saturation 97% 12/25/2024 9:57 AM EDT Inhaled Oxygen Concentration - - Weight 89.8 kg (198 lb) 12/25/2024 9:57 AM EDT Height 180.3 cm (5' 11 ) 12/25/2024 9:57 AM EDT Body Mass Index 27.62 12/25/2024 9:57 AM EDT Plan of Treatment Health Maintenance Due Date Last Done Comments LIPID PANEL 1953 DEPRESSION SCREENING 1965 SMOKING Hx and SMOKELESS TOBACCO SCREENING 1966 HEPATITIS C SCREENING 1971 MAMMOGRAM 1993 COLOGUARD 1998 COLONOSCOPY 1998 COLORECTAL CANCER SCREENING 1998 FIT TEST 1998 FOBT 1998 SIGMOIDOSCOPY 1998 VIRTUAL COLONOSCOPY 1998 OSTEOPOROSIS SCREENING INITIAL (ONE-TIME) 2018 PNEUMOCOCCAL VACCINES (50+ years) (2 of 2 - PPSV23) 01/04/2019 11/09/2018 COVID-19 VACCINE ( season) 2024 05/08/2023, 06/05/2022, 03/11/2022, Additional history exists Adult Td,Tdap Booster 03/13/2028 03/13/2018 ZOSTER VACCINES Completed 06/16/2020, 04/14/2020 RSV VACCINE Completed 05/08/2023 HEPATITIS A VACCINES Aged Out No long er eligible based on patient's age to complete this topic HIB VACCINES Aged Out No longer eligi ble based on patient's age to complete this topic MENINGOCOCCAL VACCINES (ACWY) Aged Out No longer eligible based on patient's age to complete this topic MENINGOCOCCAL VACCINES (B) Aged Out N o longer eligible based on patient's age to complete this topic Medical Devices Not on file Procedures Procedure Name Priority Date/Time Associated Diagnosis Comments INCISION AND DRAINAGE Routine 12/25/2024 10:27 AM EDT Abscess of left external ear WOUND CULTURE/SMEAR Routine 12/25/2024 1 0:26 AM EDT Abscess of left external ear from Last 3 Months Results * INCISION AND DRAINAGE (12/25/2024 10:27 AM EDT) Other Narrative Ezra Sampson PA-C - 12/25/2024 10:27 AM EDT Ezra Sampson PA-C 12/25/2024 10:32 AM Incision and Drainage Date/Time: 12/25/2024 10:27 AM Performed by: Ezra Sampson PA-C Authorized by: Ezra Sampson PA-C Saxis Protocol: Consent obtained: Yes Time out: Immediately prior to the procedure a time-out was called A time out verifies correct patient, procedure, equipment and site/side marked as required: Location: Body area: Head/neck Laterality: Left Location details: Left external ear Procedure Details: Scalpel size: 11 Incision type: Single straight Complexity: Simple Drainage: Purulent and bloody Drainage amount: Moderate Wound treatment: Wound left open Patient tolerance: Patient tolerated the procedure well with no immediate complications Skin prepped with chlorhexidine anesthetized with 2% Xylocaine 1 mL injected center of abscess with adequate anesthesia. #11 blade used to make a longitudinal 3/4 cm incision with penetration of the capsule and able to express serous purulent sebaceous fluid. Loculations broken up with forceps patient tolerated well. Pressure applied with hemostasis Band-Aid and 2 x 2 folded gauze applied. Ezra Sampson PA-C PROCEDURE/MINOR SURGICAL ORDERABLES Final Result * Wound culture/smear (12/25/2024 10:26 AM EDT) Special Requests None 12/25/2024 10:27 AM EDT [facility] GRAM STAIN NO ORGANISMS SEEN 025 10:18 AM EDT [facility] Wound Culture/Smear Rare PROBABLE CORYNEBACTERIUM SPECIES 12/27/2024 11:10 AM EDT [facility] Other (Skin) 12/25/2024 10:2 6 AM EDT 12/25/2024 2:28 PM EDT Comment:DRAINAGE FROM CYST P OSTERIOR LEFT PINNA SANGUINOUS AND SEBACEOUS Ezra Sampson PA-C MICROBIOLOGY - GENERAL O RDERABLES Final Result [facility] [address] [place] [address] from Last [address] [address] [place] [address] MEDICARE PART A & [place] [address] [place] [address] MEDICARE PART A & B [facility] MEDICARE PART A & B [facility] MEDICARE PART A & B MEDICARE PART A & B MEDICARE PART A & B MEDICARE PART A & B MEDICARE PART A & B [facility] MEDICARE PART A & B Care Teams Case Investigator Relationship Specialty Start Date End Date Kirstin Perez PA [address] [place] [address] PCP - General 10/07/19 Additional Source Comments The information contained in this document represents components of the legal health record. It is not the complete legal health record.[facility]
== END 2025-02-24 13:22 | disposition home or self-care (01) ==
LOC: HO.HOS 12:44
PROVIDERS: PCP Physician Assistant; Visit Provider Orthopaedic Surgery
DX: M16.7 Other unilateral secondary osteoarthritis of hip (principal)
CPT/HCPCS: 99213

== ENCOUNTER → 2025-02-24 12:43 | Outpatient (BNVA) | payer MEDICARE, BC, SELFPAY | PROVIDERS: PCP Physician Assistant; Visit Provider Orthopaedic Surgery | DX: M16.7 Other unilateral secondary osteoarthritis of hip (principal) | CPT/HCPCS: 99212 ==

== ENCOUNTER 2025-05-20 07:45 | Outpatient (REF) | payer MEDICARE, BC, SELFPAY ==
--- OUTSIDE RECORDS SUMMARY | 2025-05-20 07:48 | XMS_ITS | Clinical Summary ---
Author Organization [facility] Address [address] [facility] [address] [place] [phone] Phone Care Team Providers Care Learning Center Coordinator Name Role Phone Kirstin Perez Primary Care Provider [phone] Allergies No known active allergies Medications MULTIVITAMIN [...] CXR/CT nml Rheumatoid arthritis 05/04/2018 Overview (12/25/2024): [facility] [place] Immunizations Immunization Administration Dates Next Due Influenza [...] (2 of 2 - PPSV23) 01/04/2019 11/09/2018 INFLUENZA VACCINE (#1) 2025 , 06/05/2022, 05/25/2021, Additional history exists COVID-19 VACCINE ( season) 2025 05/08/2023, 06/05/2022, 03/11/2022, Additional history exists Adult [...] this topic Medical Devices Not on file Insurance [employer] MEDICARE PART A & B MEDICARE PART A & B MEDICARE PART A & [place] [address] [place] [address] MEDICARE PART A & B [facility] MEDICARE PART A & B [facility] MEDICARE PART A & B MEDICARE PART A & [place] [address] [place] [address] MEDICARE PART A & B [facility] MEDICARE PART A & B Care Teams Learning Center Coordinator Relationship Specialty Start Date End Date Kirstin Perez PA [address] [place] [id number] PCP - General 10/07/19 Additional Source Comments The information contained in this document represents components of the legal health record. It is not the complete legal health record.[facility]
--- OUTSIDE RECORDS SUMMARY | 2025-05-20 07:48 | XMS_ITS | Encounter Summary ---
Author Organization [facility] Address [address] [place] [address] [place] [phone] Phone Care Team Providers Care Calciner Operator Helper Name Role Phone Jon Chan MD Primary Care Provider Kirstin Perez Primary Care Provider [phone] Encounter Details Date Type Department Care Team (Late st Contact Info) Description 05/22/2018 Ancillary Orders Virtual Department [address] [place] [address] Selene Garcia PA [address] [place], [place] [phone] [email or web address] Personal history of nicotine dependence Social History Tobacco Use Types Packs/Day Years Used Date Smoking Tobacco: Every Day Smokeless Tobacco: Never Comments:1 cig daily Alcohol Use Standard Drinks/Week Comments Yes 0 (1 standard drink = 0.6 oz pur e alcohol) Comments Unknown Sex and Gender Information Value Date Recorded Sex Assigned at Female 11/15/2019 9:08 AM EDT Legal Sex Female 9:58 PM EDT Gender Identity Female 11/15/2019 9:08 AM EDT Sexual Orientation Choose not to disclose 2017 4:55 PM EDT documented as of this encounter Plan of Treatment Not on file documented as of this encounter Visit Diagnoses Diagnosis Personal history of nicotine dependence documented in this encounter Additional Health Concerns Infection Onset Date Last Indicated Resolved Time CoV-Risk Comment:Referred for COVID-19 testing 11/14/2019 11/14/2019 11/15/2019 7:17 AM E DT COVID-19 11/14/2019 11/14/2019 12/25/2019 1:25 AM EDT documented as of this encounter Care Teams Calciner Operator Helper Relationship Specialty Start Date End Date Jon Chan MD [address] [place] [address] [email or web address] PCP - General Family Medicine 03/09/18 10/06/19 Kirstin Perez PA [address] [place] [id number] PCP - General 10/07/19 documented as of this encounter Additional Source Comments The information contained in this document represents components of the legal health record. It is not the complete legal health record.[facility]
[2025-05-20 11:31] LABS: MANUAL DIFF FLAG NO
[2025-05-20 11:38] LABS: Hematocrit 42.1 % (37.0-47.0); Hemoglobin 13.0 g/dl (12.0-16.0); Imm Gran Abs Auto 0.02 X10*3/uL (0.00-0.03); Imm Gran Pct Auto 0.2 % (0.0-0.4); Lymphocytes Absolute Auto 3.2 X10*3/uL (1.2-4.9); Mean Corpuscular HGB Conc 30.9 g/dl (31.0-35.0); Mean Corpuscular Hemoglobin 28.8 pg (27.0-33.0); Mean Corpuscular Volume 93.3 fL (80.0-98.0); NRBC Abs Auto 0.000 X10*3/uL (0.0-0.012); NRBC Pct Auto 0.0 /100WBC (0.0-0.2); Platelet Count 335 X10*3/uL (160-400); Red Blood Count 4.51 X10*6/uL (4.20-5.50); White Blood Count 11.1 X10*3/uL (4.8-10.8)
[2025-05-20 12:15] LABS: Alanine Aminotransferase 8 U/L (0-31); Albumin Level 3.7 g/dL (3.5-5.0); Alkaline Phosphatase 73 U/L (39-117); Anion Gap 15 (12-20); Aspartate Amino Transferase 20 U/L (5-31); Blood Urea Nitrogen 14 mg/dL (9-16); Calcium 9.7 mg/dL (8.4-10.2); Carbon Dioxide 25 mmol/L (22-29); Chloride 106 mmol/L (96-108); Cholesterol 192 mg/dL (<200); Estimated Glomerular Filt Rate > 60; HDL Cholesterol 52 mg/dL (>40); Potassium 3.8 mmol/L (3.3-5.1); Sodium 142 mmol/L (135-145); Total Protein 7.3 g/dL (6.5-8.0); Triglycerides 85 mg/dL (<150)
== END 2025-05-20 07:46 | disposition home or self-care (01) ==
LOC: HO.WFDLDS 07:45
PROVIDERS: Visit Provider Student in an Organized Health Care Education/Training Program
DX: M06.09 Rheumatoid arthritis without rheumatoid factor, multiple sites (principal); E55.9 Vitamin D deficiency, unspecified; Z13.6 Encounter for screening for cardiovascular disorders
CPT/HCPCS: 36415; 80053; 80061; 82306; 85025; 85652; 86140

== ENCOUNTER 2025-05-27 14:37 | Outpatient (AMB) | payer MEDICARE, BC, SELFPAY ==
[2025-05-27 14:46] VITALS: BP 118/62; PULSE 83; O2SAT 98; BMI 27.4
--- NOTE | 2025-05-27 14:46 | A.OFFVIS_ITS ---
Vital Signs 05/27/25 14:46 Height 5 ft 11 in Weight 196 lb 6.91 oz BMI 27.4 BP 118/62 Blood Pressure Location Lt brachial Position Sitting Pulse 83 Pulse Source Pulse Oximeter Pulse Oximetry (%) 98 Oxygen Delivery Method Room Air Intake Visit Reasons: follow up Intake Note: Patient presents for RA/Right hip pain follow up. Crinkling Machine Operator Required: No Accompanied by: Self / Same As Patient Allergies No Known Allergies Allergy (Verified 05/27/25 14:51) Medication List - Last Reconciled 05/27/25 by Afshan Wilson MD Actemra ACTPen (tocilizumab) 162 mg (0.9 mL) subcut Q2W NS ascorbic acid (vitamin C) 1 g PO DAILY calcium carbonate (Calcium 600) 600 mg PO DAILY cholecalciferol (vitamin D3) 1,250 mcg PO QWEEK 90 days coenzyme Q10 (Ultra CoQ10) 300 mg PO DAILY folic acid 0.8 mg PO DAILY eiczvrnc-vpoam-zut7-C-turner-bor 500-416.6-20 mg tabs PO glucosamine HCl 1,500 mg PO DAILY leucovorin calcium 10 mg (2 x 5 mg) PO QWEEK 90 days methotrexate sodium 20 mg (8 x 2.5 mg) PO QWEEK 90 days omega 0-ayw-elu-fish oil 1,000 (120-180) mg (Fish Oil) 1 cap PO DAILY vitamin E (dl, acetate) 180 mg PO DAILY HPI Comments Details: Patient is a 69-year-old female with seropositive rheumatoid arthritis and polyarticular osteoarthritis here today for urgent visit for hip pain Interval History: Patient last seen 02/02/25 with me - On Acterma every 2 weeks, Leucovorin 10mg weekly, Folic acid 800mcg daily, Methotrexate 20mg every week, prednisone 10mg daily - Still with left knee pain - Doing well overall with her joints - Taper the prednisone Today, - On Acterma every 2 weeks, Leucovorin 10mg weekly, Folic acid 800mcg daily, Methotrexate 20mg every week, prednisone 2mg daily - Has been able to taper the prednisone. Currently on 2mg - Has not noticed increased inflammation but notes bilateral knee pain has been worsening with increased crunchiness Rheumatologic History: ++RF+++CCP dx 2017 MTX started 2017 and enbrel was added afterwards Abscess left external ear from cyst, 12/25, with completion of doxycycline course Initial history: This is a 67-year-old female who presents for evaluation of rheumatoid arthritis. Her previous reimbursement spec left the practice. RA was diagnosed in 2018 she was initially started on methotrexate with incomplete response then Enbrel was added. Significant improvement on Enbrel and methotrexate was tapered to 7.5 mg weekly. Patient feels well overall with occasional morning stiffness of her hands. She has stiffness of her knees worse on the left when she stands up after sitting down for a while. Patient smoked for about 40 years. She quit in 2018 when diagnosed with RA. She mentions getting a low-dose CT chest every year which does not show any evidence of malignancy but shows some emphysematous changes. She mentions having some slowly progressively worsening shortness of breath with climbing 2 flights of stairs over the last 2-3 years. Denies cough. 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 Current Rheumatology Medication(s): Actemra 162 mg every 2 weeks Leucovorin 10 mg every week Folic acid 800mcg daily Methotrexate 20 mg every week Prednisone 2 mg everyday [facility] Medical History (Updated 05/27/25 @ 15:41 by Afshan Wilson MD) Osteopenia Abscess of external ear, left Reactive depression (situational) On chief operator hydroformer drug therapy SARS-CoV-2 positive Rheumatoid arthritis Surgical History History of tonsillectomy Hx of tooth extraction Family History Mother Diabetes Hypertension Myocardial infarct Father Rheumatoid arthritis Social History Household Members: None Alcohol intake: never Patient Tobacco Use Status: Never used Tobacco 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al status: employed and retired 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 Review of Systems Narrative Review of Systems Constitutional: Denies fever, chills, weight loss ENT: Denies vision changes, eye pain or eye redness, dental caries, dry mouth GI: Denies nausea, vomiting, diarrhea, abdominal pain, change in BM Pulm: Denies SOB, GRIMALDO, hemoptysis, wheezing Cards: Denies chest pain, palpitations Skin: Denies Raynaud's, rash, nail changes, photosensitivity, PLASMA PROCESSING TECHNICIAN: Denies headaches, weakness, paresthesias, recurrent falls MSK: as per HPI All other systems reviewed and are unremarkable except noted above Physical Exam Exam Exam: Vital signs reviewed Physical Examination CONSTITUITIONAL Patient alert and cooperative. Well appearing and in no apparent painful distress MSK Hands * Right Hand: Able to make a fist. No swelling or tenderness to palpation of the MCPs, PIPs or DIPs. * Left Hand: Able to make a fist. No swelling or tenderness to palpation of the MCPs, PIPs or DIPs. * Herbedens nodes noted bilaterally * Squarring of the bilateral 1st CMC joints Wrists * Right Wrist: Full ROM to flexion and extension. No swelling or TTP * Left Wrist: Full ROM to flexion and extension. No swelling or TTP Elbows * Right Elbow: No swelling or TTP. No TTP of the medial epicondyle. No TTP of the lateral epicondyle * Left Elbow: No swelling or TTP. No TTP of the medial epicondyle. No TTP of the lateral epicondyle * Decreased ROM Bilaterally to extension Shoulders * Right shoulder: No swelling noted. No TTP of the AC joint. No TTP of the subacromial bursa. No TTP of the posterior shoulder * Left shoulder: No swelling noted. No TTP of the AC joint. No TTP of the subacromial bursa. No TTP of the posterior shoulder * Decreased shoulder ROM Knees * Right knee: No swelling noted. No TTP of the knee joint line. No TTP of pes anserine bursa * Left knee: No swelling noted. No TTP of the knee joint line. No TTP of pes anserine bursa. Ankles * Right ankle: Good ankle dorsiflexion and plantar flexion. No swelling. No TTP of the ankle joint * Left ankle: Good ankle dorsiflexion and plantar flexion. No swelling. No TTP of the ankle joint Feet * Right foot: Negative squeeze test * Left foot: Negative squeeze test Tender points? * No tenderness to palpation of the bilateral trapezius, supraspinatus, anterior costochondral junctions, bilateral suboccipital muscle insertions SKIN No rashes Vital Signs: Last Vital Signs Pulse 83 05/27/25 14:46 BP 118/62 05/27/25 14:46 Pulse Ox 98 05/27/25 14:46 Oxygen Delivery Method Room Air 05/27/25 14:46 BMI result Body Mass Index 27.4 Results Reviewed Results Reviewed: Laboratory Tests 12/31/24 05/20/25 08:32 07:48 WBC 11.1 H RBC 4.51 Hgb 13.0 Hct 42.1 Plt Count 335 ESR 34 H 70 H Sodium 142 Potassium 3.8 Chloride 106 Carbon Dioxide 25 BUN 14 Creatinine 0.64 AST 20 ALT 8 C-Reactive Protein 2.69 H 3.35 H 25-OH Vitamin D Total 15.6 L Laboratory Tests 09/18/22 13:10 Rheumatoid Factor 70.9 H Cycl Citrul Peptide IgG >250 H Laboratory Tests 12/31/24 08:32 Hepatitis A IgM Ab Nonreactive Hep Bs Antigen Negative Hep Bs Antibody NONREACTIVE Hep B Core Total Ab Nonreactive Hepatitis C Ab (EIA) Nonreactive TB Test (T-Spot) Com Negative DEXA 01/2025 FINDINGS: The bone mineral density of the lumbar spine is 1.348 g/cm2, corresponding to a T-score of 1.5, and a Z-score of 2.4. This is indicative of normal bone mineral density. The bone mineral density of the left total hip is 0.863 g/cm2, corresponding to a T-score of -1.2, and a Z-score of -0.2. This is indicative of osteopenia. The bone mineral density of the left femoral neck is 0.828 g/cm2, corresponding to a T-score of -1.5, and a Z-score of -0.2. This is indicative of osteopenia. FRACTURE RISK: The FRAX index suggests a risk of major osteoporotic fracture of 20.5%, and of hip fracture 4.3%. Assessment & Plan Assessment & Plan (1) Rheumatoid arthritis: Comment: ++RF+++CCP dx 2017 MTX started 2017 and enbrel was added afterwards Enbrel stopped 05/2024 due to secondary non response Actemra started. MTx continued Code(s): M06.9 - Rheumatoid arthritis, unspecified Category: Medical Qualifiers: Rheumatoid arthritis location: multiple sites Rheumatoid factor presence: without rheumatoid factor Qualified Code(s): M06.09 - Rheumatoid arthritis without rheumatoid factor, multiple sites Plan: #Seropositive RA Patient is a 69-year-old female with seropositive rheumatoid arthritis here today for follow up. Currently in remission. Tapering the prednisone Plan - Actemra 162mg SC every 2 weeks - Mtx 20mg weekly - Folic acid 0.8mcg daily - Leucovorin 10mg weekly - RTC 3 months - Labs before visit: CBC, CMP, ESR, CRP, lipid panel, T spot, Hep B/C (2) Avascular necrosis of bone of right hip: Code(s): M87.051 - Idiopathic aseptic necrosis of right femur Category: Medical Plan: #AVN of the right hip Likely 2/2 steroid use Prednisone taper ordered Follow up with ortho (3) Osteopenia: Comment: DEXA 01/2025. AP Spine 1.5, Left femoral neck -1.5, Left total hip -1.2. FRAX 20.5/4.3 Code(s): M85.80 - Other specified disorders of bone density and structure, unspecified site Category: Medical Qualifiers: Osteopenia location: hip Laterality: left Qualified Code(s): M85.852 - Other specified disorders of bone density and structure, left thigh Plan: #Osteopenia Patient with most recent bone density showing osteopenia however she has significant vitamin-D deficiency. We will need to improve this prior to starting treatment Plan - Vit D [id number] every week - Recheck Vit D in 3 months (4) Polyarticular osteoarthritis: Code(s): M15.9 - Polyosteoarthritis, unspecified Plan: #Polyarticular OA Patient with polyarticular osteoarthritis. Knee OA confirmed Will consider treatment options such as gel injections in the future (5) Encounter for methotrexate monitoring: Code(s): Z51.81 - Encounter for therapeutic drug level monitoring; Z79.631 - halfway (current) use of antimetabolite agent Plan: #Long-term Current Use of Methotrexate Discussed with patient the benefits and risks of methotrexate for managing their rheumatic condition Benefits include reduced pain, reduced mortality, maintenance of remission and reduction of flares Risks include oral ulcers, photosensitivity, hepatotoxicity, hematologic toxicity, pneumonitis, flu-like symptoms (especially day after administration), nodulosis, lymphomas ? Limit alcohol and avoid Bactrim ? Monitoring: ?CBC, BMP, LFTs every 3-4 months and hepatitis serologies as needed (6) Encounter for monitoring tocilizumab therapy: Code(s): Z51.81 - Encounter for therapeutic drug level monitoring; Z79.899 - Other chief operator hydroformer (current) drug therapy Plan: #Long-term Use of Tocilizumab Discussed the risks and benefits of tocilizumab with the management of this patient's rheumatic condition. ? Benefits include decreased pain, improved mortality, improved quality of life Risks include LFT abnormalities, elevated triglycerides, GI perforations Contraindicated in a patient with history of diverticulitis Monitoring: ?CBC, CMP, triglycerides Plan I spent 30 minutes reviewing the record and labs, taking a history, examining the patient, discussing the treatment plan, ordering diagnostic work up and doc umenting in the medical record Orders: Orders C Reactive Protein 3 Months Z79.899 - Other chief operator hydroformer (current) drug therapy Erythrocyte Sedimentation Rate 3 Months Z79.899 - Other chief operator hydroformer (current) drug therapy Lipid Panel 3 Months Z79.899 - Other fpc (current) drug therapy Complete Blood Count Auto Diff 3 Months Z79.899 - Other fpc (current) drug therapy Comprehensive Met. Panel 3 Months Z79.899 - Other fpc (current) drug therapy T Spot TB 3 Months Z79.899 - Other fpc (current) drug therapy Hepatitis B,C Profile 3 Months Z79.899 - Other chief operator hydroformer (current) drug therapy Medications: New cholecalciferol (vitamin D3) 1,250 mcg PO QWEEK 13 caps 1RF 90 days E55.9 - Vitamin D deficiency, unspecified Refilled Actemra ACTPen (tocilizumab) 162 mg (0.9 mL) subcut Q2W 2 mL 4RF NS M06.09 - Rheumatoid arthritis without rheumatoid factor, multiple sites methotrexate sodium 20 mg (8 x 2.5 mg) PO QWEEK 104 tabs 1RF 90 days M06.09 - Rheumatoid arthritis without rheumatoid factor, multiple sites leucovorin calcium 10 mg (2 x 5 mg) PO QWEEK 26 tabs 1RF 90 days M06.09 - Rheumatoid arthritis without rheumatoid factor, multiple sites folic acid 0.8 mg PO DAILY 90 tabs 1RF M06.09 - Rheumatoid arthritis without rheumatoid factor, multiple sites Discontinued prednisone Discontinued Reason: Doctor's Order 10 mg (2 x 5 mg) PO DAILY 90 days 180 tabs 1RF M06.09 - Rheumatoid arthritis without rheumatoid factor, multiple sites prednisone Take 4 tablets daily for 14 days then 3 tablets daily for 14 days then 2 tablets daily for 14 days then 1 tablet daily for 14 days Discontinued Reason: Doctor's Order 1 mg PO DAILY 140 tabs 0RF M06.09 - Rheumatoid arthritis without rheumatoid factor, multiple sites Coding Level of Care Code Est Pt Level 4 (78621) Complex EM visit Add On G2211 Diagnoses Rheumatoid arthritis of multiple sites with negative rheumatoid factor M06.09 Rheumatoid arthritis location: multiple sites Rheumatoid factor presence: without rheumatoid factor Avascular necrosis of bone of right hip M87.051 Osteopenia of left hip M85.852 Osteopenia location: hip Laterality: left Polyarticular osteoarthritis M15.9 Encounter for methotrexate monitoring Z51.81; Z79.631 Encounter for monitoring tocilizumab therapy Z51.81; Z79.899
--- OUTSIDE RECORDS SUMMARY | 2025-05-27 15:09 | XMS_ITS | Clinical Summary ---
Author Organization [facility] Address [address] [place] [phone] Phone Care Team Providers Care Director Report Name Role Phone Kirstin Perez Primary Care Provider [phone] Allergies No known active allergies Medications MULTIVITAMIN [...] CXR/CT nml Rheumatoid arthritis 05/04/2018 Overview (12/25/2024): [facility] Immunizations Immunization Administration Dates Next Due [...] & B MEDICARE PART A & [place] [address] [place] [address] MEDICARE PART A & B [facility] MEDICARE PART A & B [facility] MEDICARE PART A & B MEDICARE PART A & [place] [address] [place] [address] MEDICARE PART A & B [facility] MEDICAL [facility] Address: [facility] [address] [place] [address] MEDICARE PART A & B Care Teams Director Report Relationship Specialty Start Date End Date Kirstin Perez PA [address] [place] [id number] PCP - General 10/07/19 Additional Source Comments The information contained in this document represents components of the legal health record. It is not the complete legal health record.[facility]
--- OUTSIDE RECORDS SUMMARY | 2025-05-27 15:09 | XMS_ITS | Encounter Summary ---
Author Organization [facility] Address [address] [place] [address] [place] [phone] Phone Care Team Providers Care Watch Commander Name Role Phone Jon Chan MD Primary Care Provider Kirstin Perez Primary Care Provider [phone] Encounter Details Date Type Department Care Team (Late st Contact Info) Description 05/22/2018 Ancillary Orders Virtual Department [address] [place] [address] Selene Garcia PA [address] [place], [place] [phone] [email or web address] Personal history of nicotine dependence Social History [...] documented as of this encounter Care Teams Watch Commander Relationship Specialty Start Date End Date Jon Chan MD [address] [place] [address] [email or web address] PCP - General Family Medicine 03/09/18 10/06/19 Kirstin Perez PA [address] [place] [phone] PCP - General 10/07/19 documented as of this encounter Additional Source Comments The information contained in this document represents components of the legal health record. It is not the complete legal health record.[facility]
== END 2025-05-27 15:24 | disposition home or self-care (01) ==
LOC: HO.RHES 14:37
PROVIDERS: PCP Physician Assistant; Visit Provider Student in an Organized Health Care Education/Training Program
DX: M06.09 Rheumatoid arthritis without rheumatoid factor, multiple sites (principal); M87.051 Idiopathic aseptic necrosis of right femur; M85.852 Other specified disorders of bone density and structure, left thigh; M15.9 Polyosteoarthritis, unspecified; Z51.81 Encounter for therapeutic drug level monitoring; Z79.631 Long term (current) use of antimetabolite agent; Z79.899 Other long term (current) drug therapy
CPT/HCPCS: 99214; G2211

== ENCOUNTER → 2025-05-27 14:37 | Outpatient (BNVA) | payer MEDICARE, BC, SELFPAY | PROVIDERS: PCP Physician Assistant; Visit Provider Student in an Organized Health Care Education/Training Program | DX: M06.09 Rheumatoid arthritis without rheumatoid factor, multiple sites (principal); M87.051 Idiopathic aseptic necrosis of right femur; M85.852 Other specified disorders of bone density and structure, left thigh; Z51.81 Encounter for therapeutic drug level monitoring; Z79.631 Long term (current) use of antimetabolite agent; Z79.899 Other long term (current) drug therapy | CPT/HCPCS: 99212 ==